=== PATIENT | female | born 1955 | race Caucasian/White ===

== ENCOUNTER 2016-07-26 20:50 | Emergency (ER) | payer OTHER ==
--- NOTE | 2016-07-26 21:33 | ED ---
General Adult HPI - General Chief complaint: Back Pain/Injury Stated complaint: hip/leg pain Time Seen by Provider: 07/26/16 21:18 Source: patient, RN notes reviewed Mode of arrival: ambulatory Limitations: no limitations - History of Present Illness Initial comments: This is a 61-year-old female presents with pain that radiates down the right leg that started 3 days ago. Patient states she's had chronic back pain from an accident approximately 15 years ago. Patient states she has never had pain down the right leg. Patient also complains of some paresthesias to the right foot but denies any numbness or weakness. Patient denies any injury or fall. Patient denies any change in bowel or bladder function or loss of sensation to the saddle area. Patient is able to ambulate. Patient has been taking Tylenol for the pain. Patient denies any recent fever, chills, shortness breath, chest pain, abdominal pain, nausea/vomiting/diarrhea, hematuria, headache, or visual changes, or any other complaints. - Related Data Home Medications Medication Instructions Recorded Confirmed Glimepiride [Amaryl] 1 tab PO DAILY 07/26/16 07/26/16 Lisinopril [Zestril] 1 tab PO DAILY 07/26/16 07/26/16 Lovastatin [Mevacor] 40 mg PO HS 07/26/16 07/26/16 metFORMIN HCL 1 tab PO DAILY 07/26/16 07/26/16 Allergies Allergy/AdvReac Type Severity Reaction Status Date / Time aspirin Allergy Nausea & Verified 07/26/16 20:58 Vomiting Review of Systems ROS Statement: Those systems with pertinent positive or pertinent negative responses have been documented in the HPI. ROS Other: All systems not noted in ROS Statement are negative. Past Medical History Past Medical History: COPD, Diabetes Mellitus, Hypertension History of Any Multi-Drug Resistant Organisms: None Reported Past Surgical History: Orthopedic Surgery, Tubal Ligation Additional Past Surgical History / Comment(s): hemorrhoidectomy Past Psychological History: No Psychological Hx Reported Smoking Status: Current every day smoker Past Alcohol Use History: None Reported Past Drug Use History: None Reported General Exam - General Exam Comments Initial Comments: General: The patient is awake and alert, in no distress, and does not appear acutely ill. Neck: The neck is supple, there is no tenderness or JVD. Cardiovascular: There is a regular rate and rhythm. No murmur, rub or gallop is appreciated. Respiratory: Lungs are clear to auscultation, respirations are non-labored, breath sounds are equal. No wheezes, stridor, rales, or rhonchi. Musculoskeletal: There is mild tenderness to palpation of the lumbar spine which patient states is chronic. Patient has tenderness to the right posterior hip in the area of the sciatic nerve. Patient has full range of motion and strength 5/5 and sensation is intact. Posterior tibial and dorsalis pedis pulses are 2+ bilaterally. Capillary refill is normal at less than 2 seconds. Neurological: A&O x 3. CN II-XII intact, There are no obvious motor or sensory deficits. Coordination appears grossly intact. Speech is normal. Skin: Skin is warm and dry and no rashes or lesions are noted. Psychiatric: Normal mood and affect. Limitations: no limitations Course Vital Signs 07/26/16 07/26/16 07/26/16 20:55 21:57 22:20 Temperature 97.9 F Pulse Rate 90 83 83 Respiratory 20 18 20 Rate Blood Pressure 181/101 204/83 178/77 O2 Sat by Pulse 96 99 99 Oximetry 07/26/16 22:38 Temperature 98.0 F Pulse Rate 77 Respiratory 18 Rate Blood Pressure 174/77 O2 Sat by Pulse 99 Oximetry Medical Decision Making - Medical Decision Making This is a 61-year-old female presents with chronic lower back pain and radicular pain down the right leg. On physical exam patient is ambulatory in the EC. There is mild tenderness to palpation of the lumbar spine which patient states is chronic. Patient has tenderness to the right posterior hip in the area of the sciatic nerve. Patient has full range of motion and strength 5/5 and sensation is intact. Posterior tibial and dorsalis pedis pulses are 2+ bilaterally. Capillary refill is normal at less than 2 seconds. An x-ray of the lumbar spine was done and reviewed showing: No acute process. Report by Dr. Ortiz. I discussed sciatica with patient. Patient was given a shot of Dilaudid in the EC today along with Zofran. Patient was feeling much better after her pain medication. Patient was given Catapres in the EC due to elevated blood pressure. Patient states she takes blood pressure medication at home but knows that it is usually elevated. Patient is asymptomatic at this time. Blood pressure was rechecked and was 174/77. I discussed that patient is to follow-up with her primary care provider regarding her blood pressure. I discussed warm heating pads and continuation of OTC Tylenol for her sciatica symptoms. I discussed return parameters. Discussed with patient to follow-up with her primary care physician in one to 2 days or return to the EC for any worsening symptoms or for any further concerns. Patient was receptive to this plan. Patient will be discharged home. Patient had a ride home from her daughter-in- law. I discussed this case physician Dr. Veloz who agrees stated above. Disposition Clinical Impression: Sciatica Disposition: HOME SELF-CARE Condition: Good Instructions: Sciatica (ED) Additional Instructions: Please continue Tylenol as needed for pain. Please follow-up with family doctor tomorrow for your blood pressure. Please follow-up with family doctor in the next 1-2 days or return to the EC for any worsening symptoms or for any further concerns. Referrals: Benji Elizabeth MD [Primary Care Provider] - 1-2 days Time of Disposition: 22:28
[2016-07-26] MEDS ORDERED: HYDROmorphone 1 MG/ML 1 ML SYRINGE IVP STA (21:46)
[2016-07-26] MEDS ORDERED: cloNIDine HCL 0.2 MG TAB PO STA (21:47)
[2016-07-26] MEDS ORDERED: ONDANSETRON ODT 4 MG TAB PO STA (21:48)
--- NOTE | 2016-07-26 21:58 | XR ---
EXAMINATION TYPE: XR lumbar spine 2 or 3V DATE OF EXAM: 07/26/2016 9:36 PM COMPARISON: NONE HISTORY: Right leg numbness chronic back pain TECHNIQUE: 3 views FINDINGS: Negative for fracture or malalignment. There are multilevel advanced degenerative facet and disc changes noted. IMPRESSION: No acute process.
[2016-07-26 22:39] VITALS: BP 174/77; PULSE 77; RESP 18; TEMP 98
== END 2016-07-26 22:39 | disposition home or self-care (01) ==
LOC: EC 20:50
DX: M54.30 Sciatica, unspecified side (principal); E11.9 Type 2 diabetes mellitus without complications; I10 Essential (primary) hypertension; F17.200 Nicotine dependence, unspecified, uncomplicated; Z79.84 Long term (current) use of oral hypoglycemic drugs; Z79.899 Other long term (current) drug therapy; Z88.6 Allergy status to analgesic agent
CPT/HCPCS: 72100; 99283; 96374; J1170

== ENCOUNTER → 2016-09-25 | Outpatient (CLI) | payer OTHER ==
[2016-09-21 15:28] VITALS: BMI 31.6
[2016-09-25 14:08] VITALS: BP 146/79; PULSE 97; RESP 16; TEMP 97.8
--- NOTE | 2016-09-25 15:03 | P.CONS ---
History of Present Illness - Reason for Consult Consult date: 09/25/16 - History of Present Illness This is the initial consultation visit for this 61 years old female, who 2 years history of severe low back pain and neck pain, pain started after she tripped and fell on her back, and she continued to have severe low back pain, and she described her low back pain as aching, continuous pain, increased with any movement or activity, and also patient having severe neck pain, she has no motor or sensory deficit in the upper or lower extremities, she had no fever or night sweats, and no change in the morning bowel movement or urination, loss of the pain localized in the low back area and she describes the intensity of the pain is 7/10 increased with any activity Past Medical History Past Medical History: Asthma, COPD, Diabetes Mellitus, Hypertension Additional Past Medical History / Comment(s): lower back, bubba hips, neck and headaches History of Any Multi-Drug Resistant Organisms: None Reported Past Surgical History: Orthopedic Surgery, Tonsillectomy, Tubal Ligation Additional Past Surgical History / Comment(s): hemorrhoidectomy. Missing left knee cap secondary to accident in the Past Anesthesia/Blood Transfusion Reactions: No Reported Reaction Past Psychological History: No Psychological Hx Reported Smoking Status: Current every day smoker Past Alcohol Use History: None Reported Additional Past Alcohol Use History / Comment(s): has smoked since age 11, 1+ ppd Past Drug Use History: None Reported - Past Family History Mother Family Medical History: Cancer Additional Family Medical History / Comment(s): colon cancer Father Family Medical History: Cancer Additional Family Medical History / Comment(s): esophageal cancer Sister(s) Family Medical History: Cancer Additional Family Medical History / Comment(s): brain cancer Brother(s) Family Medical History: Diabetes Mellitus Additional Family Medical History / Comment(s): from complications of diabetes Medications and Allergies Home Medications Medication Instructions Recorded Confirmed Type Glimepiride [Amaryl] 1 mg PO AC-LUNCH 07/26/16 09/25/16 History Lisinopril [Zestril] 1 tab PO DAILY 07/26/16 09/25/16 History Lovastatin [Mevacor] 40 mg PO HS 07/26/16 09/25/16 History metFORMIN HCL 1 tab PO BID 07/26/16 09/25/16 History Acetaminophen Tab [Tylenol Tab] 1,000 mg PO Q6H PRN 09/21/16 09/25/16 History Albuterol Inhaler [Ventolin Hfa 1 - 2 puff INHALATION Q6HR PRN 09/21/16 History Inhaler] Albuterol Nebulized [Ventolin 2.5 mg INHALATION BID PRN 09/21/16 09/25/16 History Nebulized] NIFEdipine [NIFEdipine ER] 30 mg PO DAILY 09/21/16 09/25/16 History Cholecalciferol [Vitamin D3] 1,000 unit PO DAILY 09/25/16 09/25/16 History Loratadine [Claritin] 10 mg PO DIRECTED PRN 09/25/16 09/25/16 History Allergies Allergy/AdvReac Type Severity Reaction Status Date / Time aspirin Allergy Nausea & Verified 09/25/16 13:48 Vomiting Physical Exam Vitals: Vital Signs Temp Pulse Resp BP Pulse Ox 09/25/16 13:52 97.8 F 97 16 146/79 100 Intake and Output 09/24/16 09/25/16 09/25/16 22:59 06:59 14:59 Other: Weight 83.915 kg Patient Weight 09/26/16 06:59 Weight 83.915 kg Social history : smoker , NO ETOH , NO Illegal drugs use Review of Systems : 1- Constitutional : no chills , no fever , no night sweats , 2- Ears : no ear discharge , no change in hearing 3-Nose, Mouth ,Throat ; no bleeding gums, no sore throat , no epistaxis , 4-Cardiovascular : Denies chest pain, , no orthopnea , no palpitation 5-Respiratory : Denies cough , no dyspnea , no hemoptysis 6-Gastrointestinal :, no change in bowel habits , no coffee- ground emesis . 7-Genitourinary : No hematuria , no discharge , no incontinence, 8-Musculoskeletal : No gait dysfunction , report low back pain , 9- Neurological : no ataxia , no tremor , no sezure , 10-Psychatric , no suicidal ideation no hallucination 11- Endocrine : no cold intolerence , no polyuria , no polydypsia , 12-Hematologic : no easy bleeding , no easy brusing , 13-Allergic / immunology : no angioedema , no wheezing ,no allergic rhinitis 14-Integumentary : no brttle nails , no change hair / nails , no foot/leg ulcers . Physical Examinations : 1-Constitutional : Cooperative , not in acute distress . 2-HEENT : nech ; supple , no Lymphadenopathy , no Thyromegaly , :eyes , no icterus, no photophobia . ENT : , normal oropharynx , no Thrush 3- Respiratory : Chest clear to auscultations Bilaterally , no wheezing . 4- Cardiovascular : regular rate and rhythem , S1 , S2 , no S3 , no S4. 5- Gastrointestinal: abdomen soft no tenderness , no organomegally . 6- Genitourinary : Defferred . 7-Integumentary : No cellulitis , no ulcers , normal skin turgor , no cyanotic . 8- neurologic : Cranial nerve II to XII intact , no focal neurological deffecit 9-psychatric : alert , oriented X 3 , appropriate affect , intact judgment and insight . 10-Lymphatic : no Lymphadenopathy. 11- musculoskeltal: normal gait exams of the cervical spine = motor stregnth in the deltoid and biceps, normal right side , normal Left side motor stregnth biceps and the wrist extensors normal right side ,normal left side . motor stregnth in the triceps muscle . normal Right side , normal Left side deep tendon reflexes normal at the biceps , normal at Brachioradialis , normal at triceps. positive cervical facet loading test . exams of the Lumber spine = moter stegnth lower extremities , thigh and legs 5/5 Right side , 5/5 Left side deep tendon reflexes : normal Knee Jerk , normal ankle Jerk positive lumber facet Loading Test Range of motion of the lumbar spine Flexions 60 , extension 10 strait leg raising test negative bilaterally Fabere test negative bilaterally mild tenderness over the Sacroiliac joint on the R ight side Results Comments: MRI of the lumbar spine done at [facility] on 05/01/2016= L5-S1 annular tear, L4 5 disc bulging with facet degeneration L3 4 facet degeneration L2-3 disc bulging Assessment and Plan Plan: Assessment and plan = - Chronic low back pain secondary to lumbar herniated disc disease , lumbar spondylosis with facet arthropathy without myelopathy , but clinically most of the pain is coming from the facetogenic component for this reason , we will target Facet joint or standard -Chronic neck pain mostly secondary , cervical spondylosis with cervical facet arthropathy without myelopathy . - diagnoses, prognosis, and treatment options including but not limited to physical therapy, surgical interventions, interventional therapies and medication management including narcotics and adjuvant medication were discussed with the patient and all questions answered to the patient's satisfaction. -procedure= patient will be scheduled for diagnostic medial branch block lumbar area, L3/L4 5/L5-S1 will do it twice and if she has more than 50% improvement in her low back pain then we will proceed with radiofrequency ablation of the medial branch, the future we can order an MRI of the cervical spine and with consistent blink treatment as indicated Time with Patient: Greater than 30
== END | disposition home or self-care (01) ==
LOC: PNWHC3 13:38
PROVIDERS: ATTEND Specialist
DX: M51.36 Other intervertebral disc degeneration, lumbar region (principal); M47.816 Spondylosis without myelopathy or radiculopathy, lumbar region; G89.29 Other chronic pain
CPT/HCPCS: 99211

== ENCOUNTER 2016-10-03 06:16 | Day surgery (SDC) | payer OTHER ==
[2016-10-02 13:35] VITALS: BMI 31.6
[2016-10-03 07:19] VITALS: RESP 16; TEMP 97.1
[2016-10-03] MEDS ORDERED: LIDOCAINE 1% 20 ML VIAL (10MG/ML) FOR IV START INTRADERMA ONE (07:22)
[2016-10-03] MEDS ORDERED: LACTATED RINGERS 1,000 ML IV ONE ×2 (07:22→08:15)
[2016-10-03 07:26] LABS: Glucose,Whole Blood 155 mg/dL (75-99)
[2016-10-03] MEDS ORDERED: MIDAZOLAM 2 MG/2 ML VIAL ONE (07:29)
[2016-10-03] MEDS ORDERED: TRIAMCINOLONE ACETONIDE 40 MG/ML 1 ML VIAL ONE (07:29)
[2016-10-03] MEDS ORDERED: BUPIVACAINE (PF) 0.5% 30 ML VIAL ONE (07:29)
[2016-10-03] MEDS ORDERED: fentaNYL (PF) 50 MCG/ML 2 ML AMP ONE (07:29)
--- NOTE | 2016-10-03 08:18 | P.PCN ---
Date of Procedure: 10/03/16 Surgeon: Gus Pang Pathology: none sent Condition: stable Disposition: PACU Description of Procedure: PREOPERATIVE DIAGNOSIS: L3-L4, L4-L5, and L5-S1 spondylosis without myelopathy and facet arthropathy. POSTOPERATIVE DIAGNOSIS: L3-L4, L4-L5, and L5-S1 spondylosis without myelopathy and facet arthropathy. PROCEDURE DESCRIPTION: Patient presents for L3, L4 and L5 diagnostic medial branch blocks under fluoroscopic guidance. The procedure is performed using fluoroscopic guidance during needle placement to assure proper position and maximize safety. ANESTHESIA: Local with 1% lidocaine; conscious sedation with Versed only EBL: Minimal PROCEDURE INDICATION: Patient with lumbar facet arthropathy signs and symptoms, here for diagnostic medial branch block. Pt does not take any blood thinning medications. PROCEDURE DESCRIPTION: The patient was seen and identified in the preoperative area. Risks, benefits, complications, and alternatives were discussed with the patient (including but not limited to incomplete pain relief, bleeding, infection, nerve damage, and allergies to medications), the patient agreed to proceed with the procedure and signed the consent after all questions were answered. Patient was taken to the OR and time out was completed to verify proper patient, position, laterality of pain, and allergies. Pt was placed in the prone position and a pillow was placed under the abdomen to reduce lumbar lordosis. The lumbosacral area was prepped and draped in the usual sterile fashion. Using oblique fluoroscopy, the eye of the "Lavelle dog" of right L4 vertebral body, which corresponds to the path of the medial branch originating from the level above, which is L3 in this case, was identified. Subsequently, a 22-gauge 3.5-inch spinal needle was inserted under fluoroscopic guidance toward the eye of the "Lavelle dog" of the right L4 vertebral body, corresponding to the junction of the superior articular process and the transverse process of the pedicle of the same level. After needle tip confirmation on lateral view and after negative aspiration for CSF and blood and without paresthesias, 1 mL of a 6 ml solution of 0.5% preservative-free bupivacaine and 40 mg Kenalog was injected. Subsequently the needle was withdrawn intact and the same procedure was repeated for the right L4, right L5, left L3, left L4, and left L5 medial branches which together with right L3 medial branch correspond to the sensory innervation of the bilateral L3-L4, L4-L5, and L5-S1 facet joints. Needle was withdrawn intact after each injection. At the end of the procedure, the skin was cleansed and bandages were applied. COMPLICATIONS: None. DISPOSITION/PLAN: The patient taken to the recovery area after the procedure in a stable condition for observation. Patient was reexamined prior to discharge and there were no issues. Patient was discharged home, accompanied by an adult, after meeting discharged criteria. Discharge instructions were give to the patient by the staff. Patient was specifically instructed not to drive today and to rest for the rest of the day. Patient will have repeat lumbar MBB L3-S1 bilateral in 4-6 weeks.
[2016-10-03 08:21] VITALS: BP 154/76; PULSE 87
[2016-10-03 08:25] LABS: Glucose,Whole Blood 141 mg/dL (75-99)
[2016-10-03] MEDS ORDERED: IV FLUID CONTINUATION 1,000 ML IV ONE (08:30)
--- NOTE | 2016-10-03 08:31 | FL ---
EXAMINATION TYPE: FL guided pain mgmt statistic DATE OF EXAM: 10/03/2016 7:53 AM FLUOROSCOPY Fluoroscopy time of 13 seconds was used during bilateral lumbar facet injections. 3 image/s document /s the procedure.
== END 2016-10-03 08:31 | disposition home or self-care (01) ==
LOC: ORPAIN 06:16
PROVIDERS: ATTEND Anesthesiology
DX: M47.816 Spondylosis without myelopathy or radiculopathy, lumbar region (principal); M47.817 Spondylosis without myelopathy or radiculopathy, lumbosacral region; J45.909 Unspecified asthma, uncomplicated; J44.9 Chronic obstructive pulmonary disease, unspecified; E11.9 Type 2 diabetes mellitus without complications; Z79.84 Long term (current) use of oral hypoglycemic drugs; I10 Essential (primary) hypertension; F17.200 Nicotine dependence, unspecified, uncomplicated; Z79.899 Other long term (current) drug therapy; Z88.6 Allergy status to analgesic agent
CPT/HCPCS: 64493; 64494; 64495; 99152; J2250; J3301; J3010

== ENCOUNTER 2016-10-18 07:12 | Day surgery (SDC) | payer OTHER ==
[2016-10-13 11:38] VITALS: BMI 31.6
[2016-10-18 07:55] VITALS: RESP 18; TEMP 97.9
[2016-10-18 08:11] LABS: Glucose,Whole Blood 150 mg/dL (75-99)
[2016-10-18] MEDS: LACTATED RINGERS 1,000 ML IV SCH ×2 (08:11→08:32)
[2016-10-18] MEDS ORDERED: MIDAZOLAM 2 MG/2 ML VIAL ONE (08:32)
[2016-10-18] MEDS ORDERED: fentaNYL (PF) 50 MCG/ML 2 ML AMP ONE (08:32)
[2016-10-18] MEDS ORDERED: BUPIVACAINE (PF) 0.5% 30 ML VIAL ONE (08:32)
[2016-10-18] MEDS ORDERED: TRIAMCINOLONE ACETONIDE 40 MG/ML 1 ML VIAL ONE (08:32)
--- NOTE | 2016-10-18 08:59 | P.PCN ---
Date of Procedure: 10/18/16 Preoperative Diagnosis: Postoperative Diagnosis: Procedure(s) Performed: PREOPERATIVE DIAGNOSIS : 1- Lumbar spondylosis with Facet Arthropathy without myelopathy . 2- Lumber herniated disc disease POSTOPERATIVE DIAGNOSIS: 1- Lumbar spondylosis with Facet Arthropathy without myelopathy . 2- Lumber herniated disc disease PROCEDURE: Diagnostic bilateral L3 -4 , L4 -5 , and L5-S1 medial branch block under fluoroscopy#2nd ANESTHESIA: Local with 1% lidocaine 6 ml ; IV sedation with Versed 2 mg and Fentanyl 100 mcg. EBL: Minimal COMPLICATION: None. IV FLUIDS: 100 mL of normal saline. PROCEDURE INDICATION: Chronic low back pain secondary to Facet arthropathy unresponsive to conservative treatment. PROCEDURE DESCRIPTION: the patient was seen and identified in the preop holding area , risks and benefits and possible complications of the procedure and alternative were discussed with the patient, and the patient agreed to proceed with the procedure and signed the consent IV was started and vital signs monitored during the procedure and fluoroscopy was used to maximize the benefit and accuracy of the needle placement, and sedation was given to decrease patient anxiety, patient was taken to the procedure room and placed in prone position vital signs monitored in the back prepped with chlorhexidine X3 then under strict sterile technique using a right oblique fluoroscopy ,the junction of the transverse process and the superior articulating process of the right L3- 4 , L4- 5, and L5-S1 vertebra which corresponding to the fluoroscopy image of the eye of the Lavelle dog on the block side for the medial branches and subsequently , after local infiltration of skin and subcu tissuies with lidocaine 1% one mL at each level ,then 22- gauge Quincke-type needles , 3 needle was used , each one of them placed at the junction of the base of the transverse process and the superior articular process at the appropriate level, and the needle was advanced until the periosteum contacted, needle placement confirmed with AP oblique and lateral view and after appropriate needle placement confirmed, and after negative aspiration for heme and CSF and there was no paresthesia 1-1/2 mL of Marcaine 0.5% mixed with 20 mg Kenalog , then half mL injected at each level after negative aspiration the needle subsequently removed and the same procedure repeated for the left side at left side at L3-4, L4- 5 and L5-S1 levels. At the end of the procedure and the needles removed and a bandage applied after the skin was cleaned the cleaning solution patient taken to recovery room in stable condition and monitors in the recovery room for 20-30 minutes and discharged home in stable condition after discharge criteria met and patient will follow up with the pain clinic in 2-4 weeks Implants: Indications for Procedure: Operative Findings: Description of Procedure:
[2016-10-18] MEDS ORDERED: IV FLUID CONTINUATION 700 ML IV ONE (09:07)
--- NOTE | 2016-10-18 09:08 | FL ---
FLUOROSCOPY 9 seconds of fluoroscopy time were utilized during lumbar facet block. 4 images document the procedur e.
[2016-10-18 09:10] VITALS: BP 127/69; PULSE 84
== END 2016-10-18 10:44 | disposition home or self-care (01) ==
LOC: ORPAIN 07:12
PROVIDERS: ATTEND Specialist
DX: G89.29 Other chronic pain (principal); M54.5 Low back pain; M47.816 Spondylosis without myelopathy or radiculopathy, lumbar region; M46.96 Unspecified inflammatory spondylopathy, lumbar region; M51.26 Other intervertebral disc displacement, lumbar region; Z88.6 Allergy status to analgesic agent
CPT/HCPCS: 64493; 64494; 64495; 99152; J2250; J3301; J3010

== ENCOUNTER 2016-11-30 08:12 | Day surgery (SDC) | payer OTHER ==
[2016-11-30 07:14] VITALS: RESP 16; TEMP 97.8
--- NOTE | 2016-11-30 07:59 | P.PCN ---
Date of Procedure: 11/30/16 Preoperative Diagnosis: Postoperative Diagnosis: Procedure(s) Performed: PREOPERATIVE DIAGNOSIS: 1-Lumbar Spondylosis with Facet Arthropathy without myelopathy. POSTOPERATIVE DIAGNOSIS: 1- Lumbar Spondylosis with Facet Arthropathy without myelopathy. PROCEDURES : Right Radiofrequency thermocoagulation, L3-L4, L4-L5, and L5-S1 medial branch, with fluoroscopic guidance ANESTHESIA: IV sedation with versed 2 mg and fentaneyl 100 mcg and local infiltration with lidocaine 1% 6 ml EBL: Minimal PROCEDURE INDICATION: The patient with low back pain secondary to lumbar facet arthropathy who had more than 50% relief of her pain with previous diagnostic lumbar medial branch block with bupivacaine. PROCEDURE DESCRIPTION / TECHNIQUE: The patient was seen and identified in the preoperative area. Risks, benefits, complications, including but not limited to risk of infection ,bleeding , allergic reactions to the medications and no complete pain releife , and alternatives were discussed with the patient, the patient agreed to proceed with the procedure and signed the consent. IV was started. Vital signs remained stable throughout the procedure. Patient was taken to the OR and time out was completed. The patient was placed in the prone position on the procedure table. The lumber area was prepped and draped in the usual sterile fashion. . Vital signs were closely monitored during the procedure .IV sedation was used during the procedure to decrease patients anxiety. Using AP and then oblique fluoroscopy, the ``eye of the Lavelle dog corresponding to the connection between the superior and transverse articular processes of right L3, L4, and L5 were identified, marked, and localized with 1 % lidocaine. Subsequently, a [id number] radiofrequency cannula with a 10- mm active tip was advanced guided by fluoroscopy to each of the ``eyes of the Lavelle dog at right L3, L4, and L5. Each site then underwent sensory testing at 50 Hz and 0 to 1 volt and motor testing at 2.5 Hz and 0 to 3 volt with local stimulation, but no radicular symptoms down the legs. Thereafter the right L3-4, L4-5, and L5-S1 sites underwent radiofrequency thermocoagulation at 80 degrees celsius for 90 seconds after injecting 0.5 ml of PF lidocaine 1%. then After the thermocoagulation done , 1 ml of the block solution containing dexamethasone 10 mg and 3 ml of marain 0.5% was injected at the right L3-4 , L4-5 , and L5-S1, levels after negative aspiration of CSF and blood and with no paresthesias. Cannulas were retracted while injecting lidocaine 1% until the needle is out. At the end of the procedure, the skin was cleansed and bandages were applied. COMPLICATIONS: No acute complications. DISPOSITION / PLANS: The patient was placed in a supine position and transferred to the recovery area in a stable condition for observation and was discharged from the recovery room after meeting discharge criteria. Home discharge instructions given to the patient by the staff. The patient was reexamined prior to discharge. The patient will schedule a follow up in the clinic in 2-4 weeks. Implants: Indications for Procedure: Operative Findings: Description of Procedure:
--- NOTE | 2016-11-30 08:08 | FL ---
Fluoroscopy History: Rt Lumbar Rad Freq 10sec fluoro time, 3 images scanned.
[2016-11-30 08:09] LABS: Glucose,Whole Blood 171 mg/dL (75-99)
[~2016-11-30 08:12] MED LIST: BUPIVACAINE (PF) 0.5% 30 ML VIAL ONE; DEXAMETHASONE SOD PHOS (MDV) 100 MG/10 ML VIAL ONE; IV FLUID CONTINUATION 1,000 ML IV ONE; LACTATED RINGERS 1,000 ML IV ONE; LIDOCAINE 1% 20 ML VIAL (10MG/ML) FOR IV START INTRADERMA ONE; MIDAZOLAM 2 MG/2 ML VIAL ONE; fentaNYL (PF) 50 MCG/ML 2 ML AMP ONE
[2016-11-30 08:21] VITALS: BP 126/65; PULSE 81
== END 2016-11-30 08:44 | disposition home or self-care (01) ==
LOC: ORPAIN 08:12
PROVIDERS: ATTEND Specialist
DX: M47.816 Spondylosis without myelopathy or radiculopathy, lumbar region (principal); M46.96 Unspecified inflammatory spondylopathy, lumbar region; Z88.8 Allergy status to other drugs, medicaments and biological substances; Z91.09 Other allergy status, other than to drugs and biological substances
CPT/HCPCS: 64635; 64636 ×2; 99152; J2250; J3010; J1100

== ENCOUNTER 2016-12-28 07:10 | Day surgery (SDC) | payer OTHER ==
[2016-12-22 15:42] VITALS: BMI 29.9
[2016-12-28] MEDS ORDERED: LIDOCAINE 1% 20 ML VIAL (10MG/ML) FOR IV START INTRADERMA ONE (07:26)
[2016-12-28] MEDS ORDERED: LACTATED RINGERS 1,000 ML IV SCH (07:30)
[2016-12-28 07:37] VITALS: RESP 16; TEMP 95.6
[2016-12-28 07:43] LABS: Glucose,Whole Blood 149 mg/dL (75-99)
[2016-12-28] MEDS ORDERED: IV FLUID CONTINUATION 1,000 ML IV ONE (08:46)
[2016-12-28 09:02] VITALS: BP 139/61; PULSE 79
--- NOTE | 2016-12-28 09:19 | FL ---
EXAMINATION TYPE: FL guided pain mgmt statistic DATE OF EXAM: 12/28/2016 CLINICAL HISTORY: Low back pain. TECHNIQUE: Fluoroscopy. COMPARISON: None. FINDINGS: Fluoroscopic guidance was provided during pain relief procedure performed by Dr. Pang . A total of 10 seconds of fluoroscopic time was utilized during the procedure and 4 spot images are ac quired. Images acquired shows needle localization at several levels in the lower lumbar spine. IMPRESSION: As Above.
--- NOTE | 2016-12-28 09:21 | P.PCN ---
Date of Procedure: 12/28/16 Preoperative Diagnosis: Postoperative Diagnosis: Procedure(s) Performed: Implants: Surgeon: Gus Pang Pathology: none sent Condition: stable Disposition: PACU Indications for Procedure: Operative Findings: Description of Procedure: PREOPERATIVE DIAGNOSIS: Lumbar spondylosis without myelopathy and facet arthropathy POSTOPERATIVE DIAGNOSIS: Lumbar spondylosis without myelopathy and facet arthropathy PROCEDURES: Left Radiofrequency thermocoagulation, L3-L4, L4-L5, and L5-S1 medial branch, with fluoroscopic guidance. ANESTHESIA: 1% lidocaine plain; Conscious sedation with versed/fentanyl EBL: Minimal PROCEDURE INDICATION: The patient with low back pain secondary to lumbar arthropathy who had more than 50% relief of pain with previous diagnostic lumbar medial branch block with bupivacaine. Patient presents for left lumbar RFA today with good relief from right side; no use of blood thinners. PROCEDURE DESCRIPTION / TECHNIQUE: The patient was seen and identified in the preoperative area. Risks, benefits, complications, and alternatives were discussed with the patient (including but not limited to incomplete pain relief , bleeding, infection, nerve damage, and allergies to medications), the patient agreed to proceed with the procedure and signed the consent after all questions were answered. Patient was taken to the OR and time out was completed to verify proper patient , position, laterality of pain, and allergies. Pt was placed in the prone position. IV was started. Vital signs remained stable throughout the procedure. A pillow was placed under the patients chest to decrease lordosis. The lumbosacral area was prepped and draped in the usual sterile fashion. Vital signs were closely monitored during the procedure. Conscious sedation was used during the procedure to decrease patients anxiety. Using AP and then oblique fluoroscopy, the eye of the Lavelle dog corresponding to the connection between the superior and transverse articular processes of left L4, L5 and top of the sacrum were identified, marked, and localized with 1% lidocaine. Subsequently, a 18 gauge, 100-mm radiofrequency cannula with a 10-mm active tip was advanced guided by fluoroscopy to each of the eyes of the Lavelle dog at left L3, L4, and L5 medial branches. Each site then underwent sensory testing at 50 Hz and 0 to 1 volt and motor testing at 2 Hz and 0 to 3 volt with local stimulation, but no radicular symptoms down the legs. Thereafter the left L3, L4, and L5 medial branch sites underwent radiofrequency thermocoagulation at 80 degrees Celsius for 90 seconds after injecting 0.5 ml of PF lidocaine 1%. After thermocoagulation, 1 ml of the block solution containing Kenalog 40 mg and 2 mL of preservative-free normal saline was injected at the left L3, L4, and L5 medial branch levels after negative aspiration of CSF and blood and with no paresthesias. Cannulas were retracted while injecting lidocaine 1% until the needles were removed. At the end of the procedure, the skin was cleansed and bandages were applied. COMPLICATIONS: No acute complications. DISPOSITION / PLANS: The patient was placed in a supine position and transferred to the recovery area in a stable condition for observation and was discharged from the recovery room after meeting discharge criteria. Home discharge instructions given to the patient by the staff. The patient was reexamined prior to discharge. The patient will schedule a follow up in the clinic in 2-4 weeks as bilateral RFA completed.
== END 2016-12-28 09:18 | disposition home or self-care (01) ==
LOC: ORPAIN 07:10
PROVIDERS: ATTEND Anesthesiology
DX: M47.816 Spondylosis without myelopathy or radiculopathy, lumbar region (principal); M46.96 Unspecified inflammatory spondylopathy, lumbar region; I10 Essential (primary) hypertension; J44.9 Chronic obstructive pulmonary disease, unspecified; E11.9 Type 2 diabetes mellitus without complications; Z88.6 Allergy status to analgesic agent; Z91.09 Other allergy status, other than to drugs and biological substances
CPT/HCPCS: 64635; 64636 ×2; 99152; J2250; J3301; J3010; 99153

== ENCOUNTER 2017-09-24 08:51 | Observation (INO) | payer OTHER ==
[2017-09-24] MEDS ORDERED: MECLIZINE 12.5 MG TAB PO STA (09:51)
[2017-09-24] MEDS ORDERED: SODIUM CHLORIDE 0.9% 1,000 ML IV STA (09:51)
--- NOTE | 2017-09-24 10:25 | ED ---
Dizziness HPI - General Chief Complaint: Dizziness Stated Complaint: Dizziness Time Seen by Provider: 09/24/17 09:15 Source: patient, RN notes reviewed Mode of arrival: wheelchair Limitations: no limitations - History of Present Illness Initial Comments: This a 62-year-old female presents emergency Department with complaints of dizziness. She states it started yesterday and has progressively gotten worse. She states that the room spins and is worse with movement. She states sitting down currently she has no dizziness. She does complain of intermittent head pain. She states it's in the occipital region. She does complain that she 's had recent URI symptoms including sinus congestion. Patient denies any chest pain, shortness breath, vomiting. She did have some nausea with the dizziness. Patient has some difficulty in being secondary to dizziness. She states she feels unsteady. She has any focal weakness denies back pain, abdominal pain, dysuria or hematuria. She does take medications for diabetes hypertension hyperlipidemia. - Related Data Home Medications Medication Instructions Recorded Confirmed Glimepiride [Amaryl] 1 mg PO AC-LUNCH 07/26/16 09/24/17 Lovastatin [Mevacor] 40 mg PO HS 07/26/16 09/24/17 metFORMIN HCL 1 tab PO BID 07/26/16 09/24/17 Acetaminophen Tab [Tylenol Tab] 500 mg PO Q6H PRN 09/21/16 09/24/17 NIFEdipine [NIFEdipine ER] 30 mg PO DAILY 09/21/16 09/24/17 Cholecalciferol [Vitamin D3] 1,000 unit PO DAILY 09/25/16 09/24/17 Loratadine [Claritin] 10 mg PO DAILY PRN 09/25/16 09/24/17 Lisinopril-Hctz 20-25 mg 1 tab PO DAILY 10/02/16 09/24/17 [Zestoretic 20-25] Allergies Allergy/AdvReac Type Severity Reaction Status Date / Time aspirin Allergy Nausea & Verified 09/24/17 10:37 Vomiting Review of Systems ROS Statement: Those systems with pertinent positive or pertinent negative responses have been documented in the HPI. ROS Other: All systems not noted in ROS Statement are negative. Past Medical History Past Medical History: Asthma, COPD, Diabetes Mellitus, Hyperlipidemia, Hypertension Additional Past Medical History / Comment(s): lower back, neck and headaches History of Any Multi-Drug Resistant Organisms: None Reported Past Surgical History: Orthopedic Surgery, Tonsillectomy, Tubal Ligation Additional Past Surgical History / Comment(s): hemorrhoidectomy. Missing left knee cap secondary to accident in the . PAIN CLINIC PROCEDURES Past Anesthesia/Blood Transfusion Reactions: No Reported Reaction Past Psychological History: No Psychological Hx Reported Smoking Status: Current every day smoker Past Alcohol Use History: None Reported Past Drug Use History: None Reported - Past Family History Mother Family Medical History: Cancer Additional Family Medical History / Comment(s): colon cancer Father Family Medical History: Cancer Additional Family Medical History / Comment(s): esophageal cancer Sister(s) Family Medical History: Cancer Additional Family Medical History / Comment(s): brain, liver Brother(s) Family Medical History: Cancer Additional Family Medical History / Comment(s): bowel General Exam Limitations: no limitations General appearance: alert, in no apparent distress Head exam: Present: atraumatic, normocephalic, normal inspection Eye exam: Present: normal appearance, PERRL, EOMI. Absent: scleral icterus, conjunctival injection, periorbital swelling ENT exam: Present: normal exam, normal oropharynx, mucous membranes moist, TM's normal bilaterally Neck exam: Present: normal inspection, full ROM. Absent: tenderness, meningismus, lymphadenopathy Respiratory exam: Present: normal lung sounds bilaterally. Absent: respiratory distress, wheezes, rales, rhonchi, stridor Cardiovascular Exam: Present: regular rate, normal rhythm, normal heart sounds. Absent: systolic murmur, diastolic murmur, rubs, gallop, clicks GI/Abdominal exam: Present: soft, normal bowel sounds. Absent: distended, tenderness, guarding, rebound, rigid Back exam: Absent: CVA tenderness (R), CVA tenderness (L) Neurological exam: Present: alert, oriented X3, CN II-XII intact, reflexes normal, other (Finger to nose intact bilaterally without over shooting.). Absent: motor sensory deficit Skin exam: Present: warm, dry, intact, normal color. Absent: rash Course Vital Signs 09/24/17 09/24/17 08:52 11:15 Temperature 97 F L 97.5 F L Pulse Rate 96 60 Respiratory 18 18 Rate Blood Pressure 178/83 154/69 O2 Sat by Pulse 97 99 Oximetry - Reevaluation(s) Reevaluation #1: 09/24/17 11:50 Patient was updated on lab results and reevaluated. She continues to have dizziness that she states she is minimally improved states that she still feels unsteady on her feet. Medical Decision Making - Medical Decision Making 62-year-old female presented from for dizziness. Patient is mildly improved here. There is concern as she has risk factors including diabetes, hypertension , hyponatremia and smoking. Patient was admitted to rule out underlying CVA/ TIA. Patient will be given aspirin admitted for neurology exam an MRI - Lab Data Result diagrams: 09/24/17 10:15 09/24/17 10:15 Lab Results 09/24/17 09/24/17 09/24/17 Range/Units 10:15 10:15 10:15 WBC 9.6 (3.8-10.6) k/uL RBC 4.48 (3.80-5.40) m/uL Hgb 12.9 (11.4-16.0) gm/dL Hct 38.4 (34.0-46.0) % MCV 85.8 (80.0-100.0) fL MCH 28.9 (25.0-35.0) pg MCHC 33.7 (31.0-37.0) g/dL RDW 13.8 (11.5-15.5) % Plt Count 223 (150-450) k/uL Neutrophils % 69 % Lymphocytes % 22 % Monocytes % 5 % Eosinophils % 3 % Basophils % 0 % Neutrophils # 6.6 (1.3-7.7) k/uL Lymphocytes # 2.1 (1.0-4.8) k/uL Monocytes # 0.4 (0-1.0) k/uL Eosinophils # 0.3 (0-0.7) k/uL Basophils # 0.0 (0-0.2) k/uL Sodium 141 (137-145) mmol/L Potassium 4.5 (3.5-5.1) mmol/L Chloride 103 (98-107) mmol/L Carbon Dioxide 23 (22-30) mmol/L Anion Gap 15 mmol/L BUN 20 H (7-17) mg/dL Creatinine 0.56 (0.52-1.04) mg/dL Est GFR (CKD-EPI)AfAm >90 (>60 ml/min/1.73 sqM) Est GFR (CKD-EPI)NonAf >90 (>60 ml/min/1.73 sqM) Glucose 138 H (74-99) mg/dL Calcium 9.7 (8.4-10.2) mg/dL Total Bilirubin 0.5 (0.2-1.3) mg/dL AST 23 (14-36) U/L ALT 21 (9-52) U/L Alkaline Phosphatase 70 (38-126) U/L Troponin I <0.012 (0.000-0.034) ng/mL Total Protein 6.9 (6.3-8.2) g/dL Albumin 4.3 (3.5-5.0) g/dL Urine Color Urine Appearance (Clear) Urine pH (5.0-8.0) Ur Specific [place] (1.001-1.035) Urine Protein (Negative) Urine Glucose (UA) (Negative) Urine Ketones (Negative) Urine Blood (Negative) Urine Nitrite (Negative) Urine Bilirubin (Negative) Urine Urobilinogen (<2.0) mg/dL Ur Leukocyte Esterase (Negative) 09/24/17 Range/Units 10:15 WBC (3.8-10.6) k/uL RBC (3.80-5.40) m/uL Hgb (11.4-16.0) gm/dL Hct (34.0-46.0) % MCV (80.0-100.0) fL MCH (25.0-35.0) pg MCHC (31.0-37.0) g/dL RDW (11.5-15.5) % Plt Count (150-450) k/uL Neutrophils % % Lymphocytes % % Monocytes % % Eosinophils % % Basophils % % Neutrophils # (1.3-7.7) k/uL Lymphocytes # (1.0-4.8) k/uL Monocytes # (0-1.0) k/uL Eosinophils # (0-0.7) k/uL Basophils # (0-0.2) k/uL Sodium (137-145) mmol/L Potassium (3.5-5.1) mmol/L Chloride (98-107) mmol/L Carbon Dioxide (22-30) mmol/L Anion Gap mmol/L BUN (7-17) mg/dL Creatinine (0.52-1.04) mg/dL Est GFR (CKD-EPI)AfAm (>60 ml/min/1.73 sqM) Est GFR (CKD-EPI)NonAf (>60 ml/min/1.73 sqM) Glucose (74-99) mg/dL Calcium (8.4-10.2) mg/dL Total Bilirubin (0.2-1.3) mg/dL AST (14-36) U/L ALT (9-52) U/L Alkaline Phosphatase (38-126) U/L Troponin I (0.000-0.034) ng/mL Total Protein (6.3-8.2) g/dL Albumin (3.5-5.0) g/dL Urine Color Light Yellow Urine Appearance Clear (Clear) Urine pH 5.0 (5.0-8.0) Ur Specific [place] 1.008 (1.001-1.035) Urine Protein Negative (Negative) Urine Glucose (UA) Negative (Negative) Urine Ketones Negative (Negative) Urine Blood Negative (Negative) Urine Nitrite Negative (Negative) Urine Bilirubin Negative (Negative) Urine Urobilinogen <2.0 (<2.0) mg/dL Ur Leukocyte Esterase Negative (Negative) Disposition Clinical Impression: Dizziness, TIA (transient ischemic attack), Hypertension, Diabetes Disposition: ADMITTED IP TO THIS [facility] Condition: Stable Referrals: Lisa Reilly MD [Primary Care Provider] - 1-2 days
[2017-09-24 10:39] LABS: Basophils % (A) 0 %; Eosinophils # (A) 0.3 k/uL (0-0.7); Eosinophils % (A) 3 %; HCT 38.4 % (34.0-46.0); HGB 12.9 gm/dL (11.4-16.0); Lymphocytes # (A) 2.1 k/uL (1.0-4.8); Lymphocytes % (A) 22 %; MCH 28.9 pg (25.0-35.0); MCHC 33.7 g/dL (31.0-37.0); MCV 85.8 fL (80.0-100.0); Mean Platelet Volume 8.2; Monocytes # (A) 0.4 k/uL (0-1.0); Monocytes % (A) 5 %; Neutrophils # (A) 6.6 k/uL (1.3-7.7); Neutrophils % (A) 69 %; Platelet Count 223 k/uL (150-450); RBC 4.48 m/uL (3.80-5.40); RDW 13.8 % (11.5-15.5); WBC 9.6 k/uL (3.8-10.6)
[2017-09-24 10:40] LABS: Appearance,Urine Clear (Clear); Bilirubin,Urine Negative (Negative); Blood,Urine Negative (Negative); Color,Urine Light Yellow; Glucose,Urine (UA) Negative (Negative); Ketones,Urine Negative (Negative); Leukocyte Esterase,Urine Negative (Negative); Nitrite,Urine Negative (Negative); Protein,Urine Negative (Negative); Specific Gravity,Urine 1.008 (1.001-1.035); Urobilinogen,Urine <2.0 mg/dL (<2.0)
[2017-09-24 10:45] LABS: ALT 21 U/L (9-52); AST 23 U/L (14-36); Albumin 4.3 g/dL (3.5-5.0); Alkaline Phosphatase 70 U/L (38-126); Anion Gap 15 mmol/L; Blood Urea Nitrogen 20 mg/dL (7-17); Calcium 9.7 mg/dL (8.4-10.2); Carbon Dioxide 23 mmol/L (22-30); Chloride 103 mmol/L (98-107); Glucose 138 mg/dL (74-99); Potassium 4.5 mmol/L (3.5-5.1); Sodium 141 mmol/L (137-145); Total Bilirubin 0.5 mg/dL (0.2-1.3); Total Protein 6.9 g/dL (6.3-8.2)
--- NOTE | 2017-09-24 11:05 | CT ---
EXAMINATION TYPE: CT brain wo con DATE OF EXAM: 09/24/2017 COMPARISON: NONE HISTORY: Dizziness CT DLP: 1054.2 mGycm Automated exposure control for dose reduction was used. FINDINGS: Ventricular system is midline. Calvarium intact. Mild generalized degenerative change. Faint periventricular low attenuation is nonspecific but common ly seen with remote microvascular ischemia. Low attenuation involving the rahul is nonspecific may be artifactual. Area of remote ischemia not exc luded. Correlate clinically. No acute hemorrhage or mass effect. Changes of chronic sinusitis noted. Hyperostosis of the frontal bone noted. IMPRESSION: DEGENERATIVE AND NONSPECIFIC WHITE MATTER CHANGES. NO ACUTE HEMORRHAGE. IF THERE IS CONCERN FOR ACUTE ISCHEMIA CORRELATE WITH MRI CLINICALLY WARRANTED.
[2017-09-24] MEDS ORDERED: ASPIRIN 325 MG TAB PO STA (11:56)
[2017-09-24] MEDS ORDERED: LORATADINE 10 MG TAB PO PRN (13:30)
[2017-09-24] MEDS ORDERED: ACETAMINOPHEN TAB 500 MG TAB PO PRN (13:30)
--- NOTE | 2017-09-24 14:27 | US ---
EXAMINATION TYPE: US carotid duplex BILAT DATE OF EXAM: 09/24/2017 COMPARISON: NONE CLINICAL HISTORY: dizziness. EXAM MEASUREMENTS: RIGHT: Peak Systolic Velocity (PSV) cm/sec ----- Right CCA: 79.8 ----- Right ICA: 87.1 ----- Right ECA: 157.8 ICA/CCA ratio: 1.1 RIGHT: End Diastole cm/sec ----- Right CCA: 5.7 ----- Right ICA: 21.7 ----- Right ECA: 9.1 LEFT: Peak Systolic Velocity (PSV) cm/sec ----- Left CCA: 60.7 ----- Left ICA: 176.3 ----- Left ECA: 171.7 ICA/CCA ratio: 2.9 LEFT: End Diastole cm/sec ----- Left CCA: 8.9 ----- Left ICA: 30.0 ----- Left ECA: 11.4 VERTEBRALS (direction of flow): Right Vertebral: Antegrade Left Vertebral: Antegrade Rhythm: Some arrhythmia noted in images 20 and 23 Moderate amount of plaque visualized bilateral bulbs/proximal ICAs. Elevated velocities visualized in the right ECA, left proximal and mid ICA and left ECA IMPRESSION: 1. Left internal and external carotid artery stenosis of 50-69%. 2. Moderate degree of grayscale atheromatous plaquing within the left carotid bulb with elevated peak systolic velocity of the right external carotid artery corresponding to 50-69% stenosis. 2. Intermittent cardiac arrhythmia. Correlate with EKG.
--- NOTE | 2017-09-24 15:01 | P.HPIM ---
History of Present Illness H&P Date: 09/24/17 Chief Complaint: Dizziness This is a 62-year-old female patient of Dr. Reilly with past medical history of diabetes mellitus type 2, hypertension, hyperlipidemia, vitamin D deficiency, chronic low back and neck pain, headaches, tobacco use and dependence. Patient states that starting yesterday evening when she went to bed she had a dizzy spell and she had another one this morning and this is progressively worsened. This room is spinning and is worse with movement. She had a recent sinus infection 3 weeks ago and was treated with an antibiotic for 10 days but she does not remember the name of the antibiotic. She was feeling better after this. She does complain of sinus drainage. She complains of chest pressure but no actual pain. She has a headache to the posterior bilaterally and across her forehead. She does have phlegm production but denies any blood. No heartburn. She does complain of ringing in her ears for the past 2-3 days. She came into the [facility] emergency center for evaluation. Vital signs were stable, she was afebrile. White count 9.6, BUN 20 creatinine 0.56, blood sugar 138. She does state that her hemoglobin A1c last checked was 6.3. Electrolytes and liver function tests were within normal limits. Troponin was negative. Urinalysis was clear. CAT scan of the brain revealed degenerative and nonspecific white matter changes. No acute hemorrhage. Carotid duplex revealed a left internal and external carotid artery stenosis of 50-69%. Patient is to be admitted as observation and consult with neurology. MRI of the brain and echocardiogram of also been ordered. Review of Systems All systems: negative Constitutional: Denies anorexia, Denies chills, Denies fatigue, Denies fever, Denies malaise, Denies poor appetite, Denies sweats, Denies weakness Eyes: denies blurred vision, denies pain Ears: bilateral: tinnitus Ears, nose, mouth and throat: Reports headache, Reports hoarseness, Reports sinus pressure, Reports vertigo, Denies dental pain, Denies mouth pain, Denies sore throat, Denies voice changes Cardiovascular: Reports chest pain, Denies decreased exercise tolerance, Denies dyspnea on exertion, Denies edema, Denies leg edema, Denies lightheadedness, Denies shortness of breath, Denies syncope Respiratory: Reports cough, Denies cough with sputum, Denies dyspnea, Denies excessive sputum, Denies hemoptysis, Denies home oxygen Gastrointestinal: Denies abdominal pain, Denies diarrhea, Denies nausea, Denies vomiting Genitourinary: Denies dysuria, Denies hematuria Musculoskeletal: Denies myalgias Integumentary: Denies pruritus, Denies rash Neurological: Denies numbness, Denies weakness Psychiatric: Denies anxiety, Denies depression Endocrine: Denies fatigue, Denies weight change Past Medical History Past Medical History: Asthma, COPD, Diabetes Mellitus, Hyperlipidemia, Hypertension Additional Past Medical History / Comment(s): lower back, neck and headaches History of Any Multi-Drug Resistant Organisms: None Reported Past Surgical History: Orthopedic Surgery, Tonsillectomy, Tubal Ligation Additional Past Surgical History / Comment(s): hemorrhoidectomy. Missing left knee cap secondary to accident in the . PAIN CLINIC PROCEDURES Past Anesthesia/Blood Transfusion Reactions: No Reported Reaction Past Psychological History: No Psychological Hx Reported Smoking Status: Current every day smoker Past Alcohol Use History: None Reported Additional Past Alcohol Use History / Comment(s): Vision is a smoker of 2 packs per day for 50 years. She denies any marijuana, street drug or alcohol use. She lives with her son and [id number]. Past Drug Use History: None Reported - Past Family History Mother Family Medical History: Cancer Additional Family Medical History / Comment(s): Mother in her 80s from renal failure secondary to complication from diabetes. Father Family Medical History: Cancer Additional Family Medical History / Comment(s): Father at age 58 from esophageal cancer Sister(s) Family Medical History: Cancer Additional Family Medical History / Comment(s): Patient has 2 sisters. One from brain cancer and one from lung cancer. Brother(s) Family Medical History: Cancer Additional Family Medical History / Comment(s): Patient has 2 brothers one from combinations of diabetes. One is alive with no major medical problems. Daughter(s) Additional Family Medical History / Comment(s): Patient has 2 sons and 1 daughter with no major medical problems. Medications and Allergies Home Medications Medication Instructions Recorded Confirmed Type Glimepiride [Amaryl] 1 mg PO AC-LUNCH 07/26/16 09/24/17 History Lovastatin [Mevacor] 40 mg PO HS 07/26/16 09/24/17 History metFORMIN HCL 1 tab PO BID 07/26/16 09/24/17 History Acetaminophen Tab [Tylenol Tab] 500 mg PO Q6H PRN 09/21/16 09/24/17 History NIFEdipine [NIFEdipine ER] 30 mg PO DAILY 09/21/16 09/24/17 History Cholecalciferol [Vitamin D3] 1,000 unit PO DAILY 09/25/16 09/24/17 History Loratadine [Claritin] 10 mg PO DAILY PRN 09/25/16 09/24/17 History Lisinopril-Hctz 20-25 mg 1 tab PO DAILY 10/02/16 09/24/17 History [Zestoretic 20-25] Allergies Allergy/AdvReac Type Severity Reaction Status Date / Time aspirin Allergy Nausea & Verified 09/24/17 10:37 Vomiting Physical Exam Vitals: Vital Signs Temp Pulse Resp BP Pulse Ox 09/24/17 13:15 97.1 F L 81 18 163/69 97 09/24/17 12:15 85 16 157/67 99 09/24/17 11:15 97.5 F L 60 18 154/69 99 09/24/17 08:52 97 F L 96 18 178/83 97 Intake and Output 09/23/17 09/24/17 09/24/17 22:59 06:59 14:59 Other: Weight 81.647 kg Gen: This is a obese 62-year-old female sitting up on the stretcher in the ER and appears to be comfortable. No acute respiratory distress noted. HEENT: Head is atraumatic, normocephalic. Pupils equal, round. Sclerae is anicteric. Positive nystagmus NECK: Supple. No JVD. No lymphadenopathy. No thyromegaly. LUNGS: Clear to auscultation. No wheezes or rhonchi. No intercostal retractions. HEART: Regular rate and rhythm. No murmur. ABDOMEN: Soft. Bowel sounds are present. No masses. No tenderness. EXTREMITIES: No pedal edema. No calf tenderness. Dorsalis pedis +2 bilaterally. NEUROLOGICAL: Patient is awake, alert and oriented x3. Cranial nerves 2 through 12 are grossly intact. Results CBC & Chem 7: 09/24/17 10:15 09/24/17 10:15 Labs: Abnormal Lab Results - Last 24 Hours (Table) 09/24/17 Range/Units 10:15 BUN 20 H (7-17) mg/dL Glucose 138 H (74-99) mg/dL Thrombosis Risk Factor Assmnt - DVT/VTE Prophylaxis DVT/VTE Prophylaxis: Pharmacologic Prophylaxis ordered Assessment and Plan Plan: 1. Dizziness, rule out CVA, rule out benign paroxysmal positional vertigo rule out viral vestibular neuronitis secondary to recent sinus infection. Consult with neurology. MRI and echocardiogram of been ordered, neuro checks per protocol. Continue Claritin. 2. Left internal carotid artery stenosis of 50-69% found on carotid duplex. 3. Diabetes mellitus type 2. Continue metformin 1000 g twice daily, glimepiride 1 mg at lunch daily, NovoLog scale before meals and at bedtime, hemoglobin A1c. 4. Hyperlipidemia. Continue lovastatin. 5. Hypertension. Continue nifedipine 30 mg daily at bedtime and lisinopril/ hydrochlorothiazide 1 daily in the morning. 6. Vitamin D deficiency. Continue supplement. 7. Recent treatment for sinus infection and completed course of antibiotics, stable. 8. Chronic headache and chronic back pain. Tylenol as needed. 9. DVT prophylaxis. Lovenox. 10. GI prophylaxis. Pepcid. Patient placed as an observation status. Discharge plan: Return home Impression and plan of care have been directed as dictated by the signing physician. Rebekah Santos nurse practitioner acting as scribe for signing physician.
[2017-09-24] MEDS: INSULIN ASPART 100 UNIT/ML 1 ML 10 ML VIAL SQ SCH ×2 (18:31→21:31)
[2017-09-24] MEDS: GLIMEPIRIDE 1 MG TAB PO SCH (19:08)
[2017-09-24] MEDS: NICOTINE 21MG/24HR PATCH TRANSDERM SCH (19:09)
[2017-09-24] MEDS ORDERED: ATORVASTATIN 10 MG TAB PO SCH (21:00)
[2017-09-24] MEDS ORDERED: NIFEdipine XL 30 MG TAB.ER.24 PO SCH (21:00)
[2017-09-24] MEDS: metFORMIN 500 MG TAB PO SCH (21:02)
[2017-09-24 21:20] LABS: Glucose,Whole Blood 125 mg/dL (75-99)
--- NOTE | 2017-09-24 21:54 | P.CNNES ---
History of Present Illness Consult date: 09/24/17 History of Present Illness: Patient is a 62-year-old woman who experienced 4 episodes of positional vertigo yesterday lasting about 1 minute. This was associated with nausea. All were precipitated by quick head or neck movements. The patient states that if she rolled over in bed quickly regarding up quickly from bed or in a sitting position she had the vertigo. Today she went to work. She was unable to function at work because of the bending required. She felt dizziness and also had an episode of feeling chills and shivers and employer suggested she go to the hospital. She drove herself to the hospital. She states that the episodes of vertigo occur mainly if she turns her neck quickly. She was treated for a sinus infection 3 weeks ago and was given some antibiotic. She does get sinus infections frequently. She denied any prior history of vertigo. She denied any associated neurologic symptoms with the vertigo such as perioral numbness or visual changes or focal weakness or numbness. Does have chronic numbness of the left foot for years. She attributed that to her diabetes. She had a CAT scan of the brain in the emergency room which showed nonspecific white matter changes. She had a carotid ultrasound which showed left internal carotid stenosis of 50-69%. Review of Systems Constitutional: Denies chills, Denies fever Cardiovascular: Denies chest pain, Denies shortness of breath Respiratory: Denies cough Musculoskeletal: Denies myalgias Neurological: Denies numbness, Denies weakness Psychiatric: Denies anxiety, Denies depression Past Medical History Past Medical History: Asthma, COPD, Diabetes Mellitus, Hyperlipidemia, Hypertension Additional Past Medical History / Comment(s): lower back, neck and headaches History of Any Multi-Drug Resistant Organisms: None Reported Past Surgical History: Orthopedic Surgery, Tonsillectomy, Tubal Ligation Additional Past Surgical History / Comment(s): hemorrhoidectomy. Missing left knee cap secondary to accident in the . PAIN CLINIC PROCEDURES Past Anesthesia/Blood Transfusion Reactions: No Reported Reaction Past Psychological History: No Psychological Hx Reported Smoking Status: Current every day smoker Past Alcohol Use History: None Reported Additional Past Alcohol Use History / Comment(s): Vision is a smoker of 2 packs per day for 50 years. She denies any marijuana, street drug or alcohol use. She lives with her son and [id number]. Past Drug Use History: None Reported - Past Family History Mother Family Medical History: Cancer Additional Family Medical History / Comment(s): Mother in her 80s from renal failure secondary to complication from diabetes. Father Family Medical History: Cancer Additional Family Medical History / Comment(s): Father at age 58 from esophageal cancer Sister(s) Family Medical History: Cancer Additional Family Medical History / Comment(s): Patient has 2 sisters. One from brain cancer and one from lung cancer. Brother(s) Family Medical History: Cancer Additional Family Medical History / Comment(s): Patient has 2 brothers one from combinations of diabetes. One is alive with no major medical problems. Daughter(s) Additional Family Medical History / Comment(s): Patient has 2 sons and 1 daughter with no major medical problems. Medications and Allergies Home Medications Medication Instructions Recorded Confirmed Type Glimepiride [Amaryl] 1 mg PO AC-LUNCH 07/26/16 09/24/17 History Lovastatin [Mevacor] 40 mg PO HS 07/26/16 09/24/17 History metFORMIN HCL 1 tab PO BID 07/26/16 09/24/17 History Acetaminophen Tab [Tylenol Tab] 500 mg PO Q6H PRN 09/21/16 09/24/17 History NIFEdipine [NIFEdipine ER] 30 mg PO DAILY 09/21/16 09/24/17 History Cholecalciferol [Vitamin D3] 1,000 unit PO DAILY 09/25/16 09/24/17 History Loratadine [Claritin] 10 mg PO DAILY PRN 09/25/16 09/24/17 History Lisinopril-Hctz 20-25 mg 1 tab PO DAILY 10/02/16 09/24/17 History [Zestoretic 20-25] Allergies Allergy/AdvReac Type Severity Reaction Status Date / Time aspirin Allergy Nausea & Verified 09/24/17 10:37 Vomiting Physical Examination - Vital Signs Vital Signs: Vital Signs Temp Pulse Pulse Resp BP BP Pulse Ox 09/24/17 20:00 99.3 F 87 20 151/71 95 09/24/17 18:53 90 16 152/70 95 09/24/17 17:15 98.9 F 87 16 147/71 94 L 09/24/17 16:49 98.4 F 80 18 142/64 94 L 09/24/17 16:10 97.7 F 82 18 149/65 94 L 09/24/17 15:15 97.7 F 83 20 145/65 95 09/24/17 13:15 97.1 F L 68 20 156/56 99 09/24/17 12:15 85 16 157/67 99 09/24/17 11:15 97.5 F L 60 18 154/69 99 09/24/17 08:52 97 F L 96 18 178/83 97 Intake and Output 09/24/17 09/24/17 09/24/17 06:59 14:59 22:59 Other: Voiding Method Toilet # Voids 1 Weight 81.647 kg - Constitutional General appearance: average body habitus, cooperative - EENT EENT: PERRL, hearing intact, vision intact - Respiratory Respiratory: rhonchi - Cardiovascular Cardiovascular: regular rate, normal S1 - Neurologic Mental status: She was awake alert and oriented 3 her speech was fluent there was no a aphasia or dysarthria. Cranial nerve examination: PERRL, EOMI, VFF, face symmetric, tongue midline Speech examination: intact Sensorimotor examination: intact Detailed motor examination: grossly full strength in all extremities Reflexes: 2+: bicep - Psychiatric Psychiatric: mood/affect appropriate Results - Laboratory Findings CBC and BMP: 09/24/17 10:15 09/24/17 10:15 Abnormal Lab Findings: Abnormal Labs 09/24/17 09/24/17 10:15 21:18 BUN 20 H Glucose 138 H POC Glucose (mg/dL) 125 H Assessment and Plan (1) Vertigo Current Visit: Yes Status: Acute SNOMED Code(s): 961132036 (2) TIA (transient ischemic attack) Current Visit: Yes Status: Acute SNOMED Code(s): 581492931 Plan: The patient is a 62-year-old woman with history of recent onset vertigo. Her vertigo is positional and brief. There is no other associated symptom with the vertigo. The patient had recent sinus infection and likely has a viral vestibular neuronitis. Recommend reduce salt and fluid intake. Recommend evaluation by ENT for possible benign positional vertigo, which can be done outpatient if symptoms improved.. She has had a carotid ultrasound which showed 50-69% left ICA stenosis. Recommend MRA of the carotid arteries. If any significant stenosis recommend vascular consultation She is already scheduled for MRI of the brain. Also echocardiogram is scheduled. The patient is unable to tolerate aspirin due to gastric side effects. We'll await results of all studies before any recommendation for antiplatelet therapy.
[2017-09-24 23:10] LABS: Hemoglobin A1C 6.6 % (4.0-6.0)
[2017-09-25 00:50] VITALS: RESP 18
[2017-09-25 06:25] LABS: Glucose,Whole Blood 151 mg/dL (75-99)
[2017-09-25] MEDS: INSULIN ASPART 100 UNIT/ML 1 ML 10 ML VIAL SQ SCH ×2 (06:25→11:54)
[2017-09-25 07:21] LABS: Cholesterol 157 mg/dL (<200); HDL Cholesterol 49 mg/dL (40-60); LDL Cholesterol,Calculated 78 mg/dL (0-99); Triglycerides 149 mg/dL (<150)
[2017-09-25] MEDS ORDERED: FAMOTIDINE 20 MG TAB PO SCH (09:00)
[2017-09-25] MEDS ORDERED: ENOXAPARIN 40 MG/0.4 ML SYRINGE SQ SCH (09:00)
[2017-09-25] MEDS ORDERED: LISINOPRIL-HCTZ 20-25 MG 1 EACH TAB PO SCH (09:00)
[2017-09-25] MEDS ORDERED: MECLIZINE 25 MG TAB PO PRN (09:02)
[2017-09-25] MEDS: NICOTINE 21MG/24HR PATCH TRANSDERM SCH (09:03)
[2017-09-25] MEDS: metFORMIN 500 MG TAB PO SCH (09:04)
--- NOTE | 2017-09-25 10:51 | ECHOF ---
Referral Reason:lvf MEASUREMENTS -------- HEIGHT: 165.1 cm WEIGHT: 81.6 kg BP: RVIDd: 2.7 cm (< 3.3) IVSd: 1.0 cm (0.6 - 1.1) LVIDd: 4.1 cm (3.9 - 5.3) LVPWd: 1.2 cm (0.6 - 1.1) IVSs: 1.5 cm LVIDs: 2.6 cm LVPWs: 1.5 cm LA Diam: 3.0 cm (2.7 - 3.8) Ao Diam: 2.8 cm (2.0 - 3.7) AV Cusp: 1.7 cm (1.5 - 2.6) LA Diam: 3.5 cm (2.7 - 3.8) MV EXCURSION: 19.913 mm (> 18.000) MV EF SLOPE: 85 mm/s (70 - 150) EPSS: 0.5 cm MV E Chidi: 0.82 m/s MV DecT: 138 ms MV A Chidi: 0.81 m/s MV E/A Ratio: 1.01 RAP: 5.00 mmHg RVSP: 11.86 mmHg FINDINGS -------- Sinus rhythm. This was a techncally difficult study with suboptimal views, , Lumason utilized for enhancement of im ages. The left ventricular size is normal. Left ventricular wall thickness is normal. Overall left vent ricular systolic function is low-normal with, an EF between 50 - 55 %. The right ventricle is normal in size. The left atrial size is normal. The right atrial size is normal. 5.0mg OF Lumason UTLIZED: 2 OR MORE WALL SEGMENTS NOT VISUALIZED. There is mild aortic valve sclerosis. There is no evidence of aortic regurgitation. Mild mitral annular calcification present. Mild mitral regurgitation is present. Mild tricuspid regurgitation present. There is no evidence of pulmonary hypertension. The right v entricular systolic pressure, as measured by Doppler, is 11.86mmHg. There is no pulmonic regurgitation present. The aortic root size is normal. There is no pericardial effusion. CONCLUSIONS -------- 1. This was a techncally difficult study with suboptimal views, , Lumason utilized for enhancement of images. 2. The left ventricular size is normal. 3. Left ventricular wall thickness is normal. 4. Overall left ventricular systolic function is low-normal with, an EF between 50 - 55 %. 5. The right ventricle is normal in size. 6. The left atrial size is normal. 7. 5.0mg OF Lumason UTLIZED: 2 OR MORE WALL SEGMENTS NOT VISUALIZED. 8. There is mild aortic valve sclerosis. 9. Mild mitral annular calcification present. 10. Mild mitral regurgitation is present. 11. Mild tricuspid regurgitation present. 12. There is no evidence of pulmonary hypertension. 13. The right ventricular systolic pressure, as measured by Doppler, is 11.86mmHg. 14. There is no pulmonic regurgitation present. 15. The aortic root size is normal. 16. There is no pericardial effusion. MANAGER AUTO: Whit Gaona RDCS
[2017-09-25 11:34] LABS: Glucose,Whole Blood 147 mg/dL (75-99)
--- NOTE | 2017-09-25 11:47 | MR ---
EXAMINATION TYPE: [facility] DATE OF EXAM: 09/25/2017 COMPARISON: CT brain 09/24/2017, carotid Doppler duplex 09/24/2017 HISTORY: Headache, dizziness rule out CVA TECHNIQUE: Multiplanar, multisequence images of the brain and brainstem is performed without and with IV contras t, utilizing 7.5 mL intravenous Gadavist, [id number] and postcontrast images obtained through the neck pre and postcontrast administration. FINDINGS: Diffusion weighted images demonstrate no evidence of a recent infarct or other diffusion ab normality. There is no extra-axial fluid collection. Scattered and confluence hyperintensities are present in the periventricular and deep white matter on inversion recovery and T2-weighted sequences, approximately 50 lesions are present. 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 The brain volume is age appropriate. Midline structures demonstrate normal morphology. The craniocervical junction appears within normal limits. Post contrast images demonstrate no abnormal enhancement. The dural venous sinuses appear pa tent. The visualized sinuses are remarkable for inflammatory change in the maxillary sinus, ethmoid a ir cells, sphenoid sinus, and the globes are intact. MRA NECK: The proximal internal carotid artery stenosis on the left correlate with ultrasound finding s. Common carotid, internal and external carotid arteries are patent. Vertebral arteries are patent a nd codominant. 3 super aortic branch vessels are present. Left and right subclavian arteries, innominate artery, bas ilar artery are patent. IMPRESSION: Chronic small vessel ischemia and age-related atrophy within the brain. Findings correlate with Doppler duplex, 50-69% diameter stenosis of the proximal internal carotid art tricia on the left.
[2017-09-25] MEDS: GLIMEPIRIDE 1 MG TAB PO SCH (11:54)
[2017-09-25] MEDS ORDERED: CHOLECALCIFEROL 1,000 UNIT TAB PO SCH (12:00)
[2017-09-25 12:26] VITALS: TEMP 98.1
[2017-09-25 12:33] VITALS: BP 136/63; PULSE 84
--- NOTE | 2017-09-26 14:37 | P.DS ---
Providers Date of admission: 09/24/17 11:53 Expected date of discharge: 09/25/17 Attending physician: Ayana Huertas MD Consults: 09/24/17 11:54 Consult Physician Urgent Consulting Provider: Keyana Olivarez Consult Reason/Comments: TIA Do you want consulting provider notified?: Yes Primary care physician: Lisa [facility] [place] Course: This is a 62-year-old female patient of Dr. Reilly with past medical history of diabetes mellitus type 2, hypertension, hyperlipidemia, vitamin D deficiency, chronic low back and neck pain, headaches, tobacco use and dependence. Patient states that starting yesterday evening when she went to bed she had a dizzy spell and she had another one this morning and this is progressively worsened. This room is spinning and is worse with movement. She had a recent sinus infection 3 weeks ago and was treated with an antibiotic for 10 days but she does not remember the name of the antibiotic. She was feeling better after this. She does complain of sinus drainage. She complains of chest pressure but no actual pain. She has a headache to the posterior bilaterally and across her forehead. She does have phlegm production but denies any blood. No heartburn. She does complain of ringing in her ears for the past 2-3 days. She came into the [facility] emergency center for evaluation. Vital signs were stable, she was afebrile. White count 9.6, BUN 20 creatinine 0.56, blood sugar 138. She does state that her hemoglobin A1c last checked was 6.3. Electrolytes and liver function tests were within normal limits. Troponin was negative. Urinalysis was clear. CAT scan of the brain revealed degenerative and nonspecific white matter changes. No acute hemorrhage. Carotid duplex revealed a left internal and external carotid artery stenosis of 50-69%. Patient is to be admitted as observation and consult with neurology. MRI of the brain and echocardiogram of also been ordered. 09/25: Patient has been seen by Dr. Olivarez with recommendations for ENT eval for possible benign positional vertigo as an outpatient, Rafa do salt and fluid intake, there is possible viral vestibular neuronitis. MRI of the brain revealed chronic small vessel ischemic and age-related atrophy within the brain. Echocardiogram reveals EF of 50-55%, mild mitral regurgitation, mild tricuspid regurgitation, no pulmonary hypertension. Patient will be discharged home today in stable condition Discharge diagnoses: 1. Dizziness, rule out CVA, rule out benign paroxysmal positional vertigo rule out viral vestibular neuronitis secondary to recent sinus infection. 2. Left internal carotid artery stenosis of 50-69% found on carotid duplex. 3. Diabetes mellitus type 2. 4. Hyperlipidemia. 5. Hypertension. 6. Vitamin D deficiency. 7. Recent treatment for sinus infection and completed course of antibiotics, stable. 8. Chronic headache and chronic back pain. Discharge plan: Return home Impression and plan of care have been directed as dictated by the signing physician. Rebekah Santos nurse practitioner acting as scribe for signing physician. Patient Condition at Discharge: Good Plan - Discharge Summary Discharge Rx Participant: No New Discharge Prescriptions: New Metoprolol Tartrate 25 mg PO BID #60 tab Nicotine 21Mg/24Hr Patch [Habitrol] 1 patch TRANSDERM DAILY #30 patch Meclizine [Antivert] 25 mg PO TID #90 tab Continue Lovastatin [Mevacor] 40 mg PO HS Glimepiride [Amaryl] 1 mg PO AC-LUNCH metFORMIN HCL 1 tab PO BID Acetaminophen Tab [Tylenol] 500 mg PO Q6H PRN PRN Reason: Pain Loratadine [Claritin] 10 mg PO DAILY PRN PRN Reason: Congestion Cholecalciferol [Vitamin D3] 1,000 unit PO DAILY Lisinopril-Hctz 20-25 mg [Zestoretic 20-25] 1 tab PO DAILY Discontinued NIFEdipine [NIFEdipine ER] 30 mg PO DAILY Discharge Medication List Glimepiride [Amaryl] 1 mg PO AC-LUNCH 07/26/16 [History] Lovastatin [Mevacor] 40 mg PO HS 07/26/16 [History] metFORMIN HCL 1 tab PO BID 07/26/16 [History] Acetaminophen Tab [Tylenol] 500 mg PO Q6H PRN 09/21/16 [History] Cholecalciferol [Vitamin D3] 1,000 unit PO DAILY 09/25/16 [History] Loratadine [Claritin] 10 mg PO DAILY PRN 09/25/16 [History] Lisinopril-Hctz 20-25 mg [Zestoretic 20-25] 1 tab PO DAILY 10/02/16 [History] Meclizine [Antivert] 25 mg PO TID #90 tab 09/25/17 [Rx] Metoprolol Tartrate 25 mg PO BID #60 tab 09/25/17 [Rx] Nicotine 21Mg/24Hr Patch [Habitrol] 1 patch TRANSDERM DAILY #30 patch 09/25/17 [ Rx] Follow up Appointment(s)/Referral(s): [facility] [Provider Group] - 2 Weeks (regarding echo results Spoke to Joan. Office will call with appointment time) [facility] [Provider Group] - 2 Weeks (Please call to schedule appointment) Lisa Reilly MD [Primary Care Provider] - 1 Week (Office is closed. Please call to make appointment) Patient Instructions/Handouts: Transient Ischemic Attack (DC) Discharge Disposition: HOME SELF-CARE
== END 2017-09-25 12:57 | disposition home or self-care (01) ==
LOC: EC 08:51 → 6SEL 11:53
PROVIDERS: ADMIT Internal Medicine; ATTEND Internal Medicine
DX: R42 Dizziness and giddiness (principal); I65.22 Occlusion and stenosis of left carotid artery; E11.9 Type 2 diabetes mellitus without complications; E78.5 Hyperlipidemia, unspecified; I10 Essential (primary) hypertension; E55.9 Vitamin D deficiency, unspecified; R11.0 Nausea; R07.89 Other chest pain; R68.83 Chills (without fever); G89.29 Other chronic pain; M54.5 Low back pain; M54.2 Cervicalgia; R51 Headache; R20.0 Anesthesia of skin; J44.9 Chronic obstructive pulmonary disease, unspecified; F17.210 Nicotine dependence, cigarettes, uncomplicated; E66.9 Obesity, unspecified; Z68.28 Body mass index [BMI] 28.0-28.9, adult; Z80.0 Family history of malignant neoplasm of digestive organs; Z80.8 Family history of malignant neoplasm of other organs or systems; Z80.1 Family history of malignant neoplasm of trachea, bronchus and lung; Z79.84 Long term (current) use of oral hypoglycemic drugs; Z79.899 Other long term (current) drug therapy; Z88.6 Allergy status to analgesic agent
CPT/HCPCS: 99285; 96360 ×2; 96372; 36415; 94760; 93005; 97161; 97165; 80061; 80053; 84484; 85025; 81003; 83036; 93880; 70450; 70549; 70553; G0378 ×2; C8929; S4990 ×2; J1650; A9581; Q9950; 93306

== ENCOUNTER → 2018-08-09 | Outpatient (CLI) | payer MEDICARE, OTHER ==
--- NOTE | 2018-08-09 11:39 | BD ---
EXAMINATION TYPE: Axial Bone Density DATE OF EXAM: 08/09/2018 COMPARISON: NONE CLINICAL HISTORY: Disorder of bone Height: 5 FT 3 1/4 IN Weight: 172 FRAX RISK QUESTIONS: History of Fracture in Adulthood: YES Secondary Osteoporosis: 3. Menopause before 45: YES Current Tobacco Use: YES RISK FACTORS HISTORY OF: Active: YES Postmenopausal woman: AGE 40 Lost more than 2 inches in height since high school: YES Poor Health: FAIR MEDICATIONS: Additional Medications: METFORMIN, LOVASTATIN,LISINOPRIL,METOPROLOL, LOVASTATIN, VENTOLIN, DIABETIC M ED, TYLENOL, Additional History: EXAM MEASUREMENTS: Bone mineral densitometry was performed using the Zola System. Bone mineral density as measured about the Lumbar spine is: ----- L1-L4(G/cm2): 1.433 T Score Values are as follows: ----- L2: 1.1 ----- L3: 3.5 ----- L4: 2.7 ----- L1-L4: 2.1 BASELINE Bone mineral density about the R hip (g/cm2): 1.040 Bone mineral density about the L hip (g/cm2): 1.039 T Score values are as follows: -----R Neck: 0.0 -----L Neck: 0.0 -----R Total: 1.2 -----L Total: 0.7 BASELINE IMPRESSION: Normal (Values between +1 and -1 indicate normal bone mass). Consider repeating this study in 5 year s or sooner if there is some new clinical indication. NOTE: T-SCORE=SD OF THE YOUNG ADULT MEAN.
--- NOTE | 2018-08-12 10:55 | MM ---
Reason for exam: screening (asymptomatic). Last mammogram was performed 1 year and 4 months ago. History: Patient is postmenopausal. Physical Findings: A clinical breast exam by your physician is recommended on an annual basis and results should be correlated with mammographic findings. MG Screening Mammo w CAD Bilateral CC and MLO view(s) were taken. XCCL view(s) were taken of the right breast. Prior study comparison: March 30, 2017, bilateral MG screening mammo w CAD. October 21, 2015, bilateral MG screening mammo w CAD. The breast tissue is heterogeneously dense. This may lower the sensitivity of mammography. Benign appearing bilateral calcifications. No suspicious abnormality. No significant changes when compared with prior studies. ASSESSMENT: Benign, BI-RAD 2 RECOMMENDATION: Routine screening mammogram of both breasts in 1 year.
== END ==
LOC: RADMAMWWP 06:52
PROVIDERS: ATTEND Internal Medicine
DX: Z12.31 Encounter for screening mammogram for malignant neoplasm of breast (principal); M89.9 Disorder of bone, unspecified
CPT/HCPCS: 77067; 77080

== ENCOUNTER → 2019-05-09 | Outpatient (CLI) | payer MEDICARE, OTHER ==
--- NOTE | 2019-05-11 20:58 | US ---
EXAMINATION TYPE: US kidneys/renal and bladder DATE OF EXAM: 05/09/2019 COMPARISON: NONE CLINICAL HISTORY: R10.9 Flank pain. UTI, diabetic, smoker, large body habitus EXAM MEASUREMENTS: Right Kidney: 11.0 x 4.6 x 4.9 cm Left Kidney: 11.5 x 4.5 x 7.0 cm Right Kidney: No hydronephrosis or masses seen Left Kidney: No hydronephrosis or masses seen Bladder: wnl Bilateral Jets seen: yes IMPRESSION: Negative exam. No evidence of renal mass or obstruction.
== END ==
LOC: RADUSMAIN 17:23
PROVIDERS: ATTEND Internal Medicine
DX: R10.9 Unspecified abdominal pain (principal)
CPT/HCPCS: 76770

== ENCOUNTER → 2019-11-26 | Outpatient (CLI) | payer MEDICARE, OTHER ==
--- NOTE | 2019-11-26 13:59 | XR ---
EXAMINATION TYPE: XR chest 2V DATE OF EXAM: 11/26/2019 COMPARISON: NONE HISTORY: Shortness of breath TECHNIQUE: Frontal and lateral views of the chest are obtained. FINDINGS: Scattered senescent parenchymal changes noted. Hyperinflation compatible with COPD. No evidence for infiltrate. No evidence for atelectasis. Heart size is stable. Mediastinal structures are stable and grossly unremarkable. No evidence for hilar prominence. Degenerative changes dorsal spine. IMPRESSION: 1. No evidence for acute pulmonary disease.
== END | disposition home or self-care (01) ==
LOC: RADXRMAIN 13:36
PROVIDERS: ATTEND Internal Medicine
DX: R05 Cough (principal)
CPT/HCPCS: 71046

== ENCOUNTER → 2020-03-18 | Outpatient (CLI) | payer MEDICARE, OTHER ==
--- NOTE | 2020-03-22 12:19 | MM ---
Reason for exam: screening (asymptomatic). Last mammogram was performed 1 year and 7 months ago. History: Patient is postmenopausal. Physical Findings: A clinical breast exam by your physician is recommended on an annual basis and results should be correlated with mammographic findings. MG Screening Mammo w CAD Bilateral CC and MLO view(s) were taken. Prior study comparison: August 09, 2018, bilateral MG screening mammo w CAD. March 30, 2017, bilateral MG screening mammo w CAD. The breast tissue is heterogeneously dense. This may lower the sensitivity of mammography. There is chronic nodularity in the left breast. 6-7 o'clock nodular asymmetry and superior anterior asymmetric density right breast are more defined. ASSESSMENT: Incomplete: need additional imaging evaluation, BI-RAD 0 RECOMMENDATION: Special view mammogram of the right breast. (3D) If lesion persists on supplemental views, image directed ultrasound is recommended. [facility] will attempt to contact patient to return for supplemental views and ultrasound if indicated.
== END | disposition home or self-care (01) ==
LOC: RADMAMWWP 15:42
PROVIDERS: ATTEND Internal Medicine
DX: Z12.31 Encounter for screening mammogram for malignant neoplasm of breast (principal)
CPT/HCPCS: 77067

== ENCOUNTER → 2020-04-02 | Outpatient (CLI) | payer MEDICARE, OTHER ==
--- NOTE | 2020-04-05 09:22 | MM ---
Reason for exam: additional evaluation requested from abnormal screening. Last mammogram was performed less than 1 month ago. History: Patient is postmenopausal. Physical Findings: Nurse did not find any significant physical abnormalities on exam. MG Work Up Mamm w CAD RT Spot compression CC, spot compression MLO, and ML view(s) were taken of the right breast. Prior study comparison: March 18, 2020, bilateral MG screening mammo w CAD. August 09, 2018, bilateral MG screening mammo w CAD. The breast tissue is heterogeneously dense. This may lower the sensitivity of mammography. There is no discrete abnormality including area of concern anterior right breast. No significant new findings when compared with previous films. These results were verbally communicated with the patient and result sheet given to the patient on 04/02/20. ASSESSMENT: Probably benign, BI-RAD 3 RECOMMENDATION: Follow-up diagnostic mammogram of the right breast in 6 months.
== END | disposition home or self-care (01) ==
LOC: RADMAMWWP 14:44
PROVIDERS: ATTEND Internal Medicine
DX: R92.8 Other abnormal and inconclusive findings on diagnostic imaging of breast (principal)
CPT/HCPCS: 77065

== ENCOUNTER 2021-02-28 14:44 | Inpatient (IN) | payer MEDICARE, OTHER ==
[2021-02-28 17:27] LABS: Basophils % (A) 0 %; Eosinophils % (A) 0 %; HGB 13.1 gm/dL (11.4-16.0); Lymphocytes # (A) 0.7 k/uL (1.0-4.8); Lymphocytes % (A) 15 %; MCH 29.5 pg (25.0-35.0); MCHC 33.5 g/dL (31.0-37.0); MCV 88.2 fL (80.0-100.0); Mean Platelet Volume 8.8; Monocytes # (A) 0.3 k/uL (0-1.0); Monocytes % (A) 6 %; Neutrophils # (A) 3.5 k/uL (1.3-7.7); Neutrophils % (A) 76 %; Platelet Count 153 k/uL (150-450); Poikilocytosis Slight; RBC 4.43 m/uL (3.80-5.40); RDW 14.1 % (11.5-15.5); WBC 4.6 k/uL (3.8-10.6)
[2021-02-28 17:36] LABS: Albumin 3.9 g/dL (3.5-5.0); Calcium 8.6 mg/dL (8.4-10.2); Potassium 4.2 mmol/L (3.5-5.1); Total Bilirubin 0.5 mg/dL (0.2-1.3); Total Protein 6.9 g/dL (6.3-8.2)
--- NOTE | 2021-02-28 19:05 | XR ---
EXAMINATION TYPE: XR chest 2V DATE OF EXAM: 02/28/2021 COMPARISON: Chest radiograph 11/26/2019 HISTORY: Shortness of breath. TECHNIQUE: Frontal and lateral views of the chest are obtained. FINDINGS: There is no focal air space opacity, pleural effusion, or pneumothorax seen. The cardiac silhouette size is within normal limits. The osseous structures are intact. IMPRESSION: No acute cardiopulmonary process.
--- NOTE | 2021-02-28 20:12 | CT ---
EXAMINATION TYPE: CT chest angio for PE DATE OF EXAM: 02/28/2021 COMPARISON: Mammogram 10/21/2015 HISTORY: cough, SOB, +covid CT DLP: 360 mGycm Automated exposure control for dose reduction was used. CONTRAST: CT Chest for pulmonary embolism performed with with IV Contrast, patient injected with 100 mL of Isov ue 370. FINDINGS: LUNGS: There are a few scattered areas of groundglass opacities. There is a fissural groundglass opac ity in the left greater than right upper lobes. Emphysematous changes at the lung apices. No effusion or pneumothorax. . Visualized airways are patent. MEDIASTINUM: There are some mildly enlarged bihilar lymph nodes and some prominent but nonenlarged hi lar lymph nodes. No Pericardial effusion. Contrast opacifies the central pulmonary arterial vasculatu re without filling defect. Tiny hiatal hernia. OTHER: Partial visualization of the spleen which appears enlarged. A 4cm predominantly fat attenuation lesion of the left adrenal gland with in the hyperdense component . Calcified lesion in the right breast as seen on prior mammogram. IMPRESSION: 1. No pulmonary embolus. 2. Scattered groundglass opacities bilaterally and in the lingula favored to be of of infectious/inf lammatory etiology on a background of emphysematous changes. Bihilar and mediastinal enlarged lymph n odes are likely reactive. 3. Partial visualization of the spleen which appears enlarged. 4. A 4cm predominantly fat attenuation lesion of the left adrenal gland with small hyperdense compon ent. Recommend nonemergent adrenal washout protocol CT.
[2021-02-28] MEDS ORDERED: HEPARIN SODIUM 1,000 UN/ML (10ML VL) IV ONE (20:31)
[2021-02-28] MEDS ORDERED: HEPARIN SODIUM 1,000 UN/ML (10ML VL) IV PRN (20:31)
--- NOTE | 2021-02-28 20:32 | ED ---
SOB HPI - General Chief Complaint: Shortness of Breath Stated Complaint: weakness, SOB Time Seen by Provider: 02/28/21 18:38 Source: patient Limitations: no limitations - History of Present Illness Initial Comments: 65-year-old female presents emergency room with reported shortness of breath. She has a history of asthma, COPD, diabetes. She states that she has had 5-6 days worth of shortness of breath, fevers, chills. States that she hasn't been eating or drinking anything. She did not receive her vaccination. States that her son was sick and hospitalized for symptoms. She denies previous history of cardiac disease. No chest pain. Unsure if she has had a cardiac workup. Admits to COPD for which she uses a nebulizer. Denies home oxygen use. Patient also reports to diarrhea. No other alleviating, Percepting or modifying factors - Related Data Home Medications Medication Instructions Recorded Confirmed Lovastatin [Mevacor] 40 mg PO AC-SUPPER 07/26/16 02/28/21 metFORMIN HCL [Glucophage] 1,000 mg PO BID 07/26/16 02/28/21 Cholecalciferol [Vitamin D3 (25 25 mcg PO DAILY 09/25/16 02/28/21 Mcg = 1000 Iu)] Fluticasone Furoate [Arnuity 1 puff INHALATION RT-DAILY 02/28/21 02/28/21 Ellipta] Glimepiride [Amaryl] 2 mg PO DAILY 02/28/21 02/28/21 Losartan [Cozaar] 50 mg PO DAILY 02/28/21 02/28/21 Metoprolol Tartrate [Lopressor] 50 mg PO BID 02/28/21 02/28/21 hydroCHLOROthiazide [Hydrodiuril] 25 mg PO DAILY 02/28/21 02/28/21 Allergies Allergy/AdvReac Type Severity Reaction Status Date / Time aspirin AdvReac Nausea & Verified 02/28/21 19:55 Vomiting Review of Systems ROS Statement: Those systems with pertinent positive or pertinent negative responses have been documented in the HPI. ROS Other: All systems not noted in ROS Statement are negative. Past Medical History Past Medical History: Asthma, COPD, Diabetes Mellitus, Hyperlipidemia, Hypertension Additional Past Medical History / Comment(s): lower back, neck and headaches History of Any Multi-Drug Resistant Organisms: None Reported Past Surgical History: Orthopedic Surgery, Tonsillectomy, Tubal Ligation Additional Past Surgical History / Comment(s): hemorrhoidectomy. Missing left knee cap secondary to accident in the 1970's. PAIN CLINIC PROCEDURES Past Anesthesia/Blood Transfusion Reactions: No Reported Reaction Past Psychological History: No Psychological Hx Reported Smoking Status: Current every day smoker Past Alcohol Use History: None Reported Past Drug Use History: None Reported - Past Family History Mother Family Medical History: Cancer Additional Family Medical History / Comment(s): Mother in her 80s from renal failure secondary to complication from diabetes. Father Family Medical History: Cancer Additional Family Medical History / Comment(s): Father at age 58 from esophageal cancer Sister(s) Family Medical History: Cancer Additional Family Medical History / Comment(s): Patient has 2 sisters. One from brain cancer and one from lung cancer. Brother(s) Family Medical History: Cancer Additional Family Medical History / Comment(s): Patient has 2 brothers one from combinations of diabetes. One is alive with no major medical problems. Daughter(s) Additional Family Medical History / Comment(s): Patient has 2 sons and 1 daughter with no major medical problems. General Exam Limitations: no limitations General appearance: alert, in no apparent distress Head exam: Present: atraumatic, normocephalic, normal inspection Eye exam: Present: normal appearance, PERRL, EOMI. Absent: scleral icterus, conjunctival injection, periorbital swelling ENT exam: Present: normal exam, mucous membranes moist Neck exam: Present: normal inspection. Absent: tenderness, meningismus, l ymphadenopathy Respiratory exam: Present: wheezes, accessory muscle use, other (tachpynia). Absent: respiratory distress, rales, rhonchi, stridor Cardiovascular Exam: Present: normal rhythm, tachycardia, normal heart sounds. Absent: systolic murmur, diastolic murmur, rubs, gallop, clicks GI/Abdominal exam: Present: soft, normal bowel sounds. Absent: distended, tenderness, guarding, rebound, rigid Extremities exam: Present: normal inspection, full ROM, normal capillary refill. Absent: tenderness, pedal edema, joint swelling, calf tenderness Back exam: Present: normal inspection Neurological exam: Present: alert, oriented X3, CN II-XII intact Psychiatric exam: Present: normal affect, normal mood Skin exam: Present: warm, dry, intact, normal color. Absent: rash Course Vital Signs 02/28/21 02/28/21 02/28/21 16:52 19:00 19:22 Temperature 98.7 F Pulse Rate 103 H 95 Respiratory 18 20 20 Rate Blood Pressure 132/62 149/62 O2 Sat by Pulse 93 L 92 L Oximetry 02/28/21 02/28/21 20:22 23:40 Temperature Pulse Rate 95 78 Respiratory 18 18 Rate Blood Pressure 151/55 148/79 O2 Sat by Pulse 97 96 Oximetry - Reevaluation(s) Reevaluation #1: 02/28/21 21:[address] Mccormick Medical Decision Making - Medical Decision Making Upon arrival patient is placed in room 10. History and physical exam is performed. IV is established. Laboratory says her conducted. 12 EKG was performed. Lab studies are reviewed. Covid is detected. Troponin 0.152. Chest x-ray demonstrates no acute cart opponent process. She is sent over for a CT of her chest which demonstrates scattered groundglass opacities bilaterally. No pulmonary embolus. Patient has no contraindications to heparinization and therefore she is heparinized. I spoke with Dr. Mccormick in regards to the patient's presence. I spoke with Dr. Adair who agreed to admit the patient. I gave her 6 mg of IV Decadron and the first dose of Remdesivir. She is awaiting a bed on the floor. - Lab Data Result diagrams: 03/01/21 08:34 03/01/21 08:34 Lab Results 02/28/21 02/28/21 02/28/21 Range/Units 17:04 17:04 17:04 WBC 4.6 (3.8-10.6) k/uL RBC 4.43 (3.80-5.40) m/uL Hgb 13.1 (11.4-16.0) gm/dL Hct 39.0 (34.0-46.0) % MCV 88.2 (80.0-100.0) fL MCH 29.5 (25.0-35.0) pg MCHC 33.5 (31.0-37.0) g/dL RDW 14.1 (11.5-15.5) % Plt Count 153 (150-450) k/uL MPV 8.8 Neutrophils % 76 % Lymphocytes % 15 % Monocytes % 6 % Eosinophils % 0 % Basophils % 0 % Neutrophils # 3.5 (1.3-7.7) k/uL Lymphocytes # 0.7 L (1.0-4.8) k/uL Monocytes # 0.3 (0-1.0) k/uL Eosinophils # 0.0 (0-0.7) k/uL Basophils # 0.0 (0-0.2) k/uL Poikilocytosis Slight Sodium 135 L (137-145) mmol/L Potassium 4.2 (3.5-5.1) mmol/L Chloride 101 (98-107) mmol/L Carbon Dioxide 22 (22-30) mmol/L Anion Gap 12 mmol/L BUN 31 H (7-17) mg/dL Creatinine 0.82 (0.52-1.04) mg/dL Est GFR (CKD-EPI)AfAm 86 (>60 ml/min/1.73 sqM) Est GFR (CKD-EPI)NonAf 74 (>60 ml/min/1.73 sqM) Glucose 210 H (74-99) mg/dL Plasma Lactic Acid Yo 1.1 (0.7-2.0) mmol/L Calcium 8.6 (8.4-10.2) mg/dL Total Bilirubin 0.5 (0.2-1.3) mg/dL AST 34 (14-36) U/L ALT 23 (4-34) U/L Alkaline Phosphatase 65 (38-126) U/L Troponin I (0.000-0.034) ng/mL NT-Pro-B Natriuret Pep pg/mL Total Protein 6.9 (6.3-8.2) g/dL Albumin 3.9 (3.5-5.0) g/dL Coronavirus (PCR) (Not Detectd) 02/28/21 02/28/21 02/28/21 Range/Units 17:04 17:04 17:05 WBC (3.8-10.6) k/uL RBC (3.80-5.40) m/uL Hgb (11.4-16.0) gm/dL Hct (34.0-46.0) % MCV (80.0-100.0) fL MCH (25.0-35.0) pg MCHC (31.0-37.0) g/dL RDW (11.5-15.5) % Plt Count (150-450) k/uL MPV Neutrophils % % Lymphocytes % % Monocytes % % Eosinophils % % Basophils % % Neutrophils # (1.3-7.7) k/uL Lymphocytes # (1.0-4.8) k/uL Monocytes # (0-1.0) k/uL Eosinophils # (0-0.7) k/uL Basophils # (0-0.2) k/uL Poikilocytosis Sodium (137-145) mmol/L Potassium (3.5-5.1) mmol/L Chloride (98-107) mmol/L Carbon Dioxide (22-30) mmol/L Anion Gap mmol/L BUN (7-17) mg/dL Creatinine (0.52-1.04) mg/dL Est GFR (CKD-EPI)AfAm (>60 ml/min/1.73 sqM) Est GFR (CKD-EPI)NonAf (>60 ml/min/1.73 sqM) Glucose (74-99) mg/dL Plasma Lactic Acid Yo (0.7-2.0) mmol/L Calcium (8.4-10.2) mg/dL Total Bilirubin (0.2-1.3) mg/dL AST (14-36) U/L ALT (4-34) U/L Alkaline Phosphatase (38-126) U/L Troponin I 0.152 H* (0.000-0.034) ng/mL NT-Pro-B Natriuret Pep 144 pg/mL Total Protein (6.3-8.2) g/dL Albumin (3.5-5.0) g/dL Coronavirus (PCR) Detected A (Not Detectd) - EKG Data EKG Comments: EKG demonstrates normal sinus rhythm with a ventricular rate of 97. NH interval 140. QRS 94. QTC of 439. No acute ST segment elevations or depressions concerning for ischemic changes Critical Care Time Critical Care Time: Yes Critical Care Time: 32 minutes for nstemi, heparinization of the patient Disposition Clinical Impression: COVID-19, NSTEMI (non-ST elevated myocardial infarction), Acute respiratory insufficiency Disposition: ADMITTED IP TO THIS HOSP Condition: Stable Is patient prescribed a controlled substance at d/c from ED?: No Decision to Admit Reason: Admit from EC Decision Date: 02/28/21 Decision Time: 21:11
[2021-02-28] MEDS ORDERED: HEPARIN SOD,PORK IN 0.45% NACL 25,000 UNIT in 0.45% NACL 1 250ML.BAG IV SCH (20:45)
[2021-02-28] MEDS ORDERED: NALOXONE 0.4 MG/ML 1 ML VIAL IV PRN (21:11)
[2021-02-28] MEDS ORDERED: REMDESIVIR 200 MG in SODIUM CHLORIDE 0.9% 250 ML IVPB ONE (22:00)
[2021-02-28] MEDS: DEXAMETHASONE SOD PHOSPHATE 10 MG/ML 1 ML VIAL IV SCH (23:35)
[2021-02-28 23:53] LABS: Glucose,Whole Blood 196 mg/dL (75-99)
[2021-03-01] MEDS: METOPROLOL TARTRATE 50 MG TAB PO SCH ×3 (00:10→19:59)
[2021-03-01] MEDS: CHOLECALCIFEROL 25 MCG (1000 IU) TABLET PO SCH ×2 (00:10→20:00)
[2021-03-01] MEDS: hydroCHLOROthiazide 25 MG TAB PO SCH ×2 (00:10→08:07)
[2021-03-01] MEDS: ATORVASTATIN 10 MG TAB PO SCH ×2 (00:10→19:59)
[2021-03-01] MEDS: LOSARTAN 50 MG TAB PO SCH ×2 (00:11→19:59)
[2021-03-01 06:04] LABS: Glucose,Whole Blood 249 mg/dL (75-99)
[2021-03-01] MEDS: INSULIN ASPART (NovoLOG) 100 UNIT/ML VIAL SQ SCH ×4 (06:44→19:59)
[2021-03-01] MEDS ORDERED: ACETAMINOPHEN TAB 500 MG TAB PO PRN (07:08)
[2021-03-01] MEDS: FLUTICASONE FUROATE 100 MCG INHALATION SCH (08:07)
[2021-03-01] MEDS: DEXAMETHASONE SOD PHOSPHATE 10 MG/ML 1 ML VIAL IV SCH (08:07)
[2021-03-01 09:26] LABS: Prothrombin Time 10.2 sec (9.0-12.0)
[2021-03-01 09:49] LABS: Calcium 8.4 mg/dL (8.4-10.2); Potassium 4.4 mmol/L (3.5-5.1)
[2021-03-01 09:53] LABS: Basophils % (A) 1 %; Eosinophils % (A) 0 %; HCT 37.9 % (34.0-46.0); HGB 12.8 gm/dL (11.4-16.0); Lymphocytes # (A) 0.5 k/uL (1.0-4.8); Lymphocytes % (A) 19 %; MCH 29.5 pg (25.0-35.0); MCHC 33.7 g/dL (31.0-37.0); MCV 87.3 fL (80.0-100.0); Mean Platelet Volume 8.7; Monocytes # (A) 0.1 k/uL (0-1.0); Monocytes % (A) 5 %; Neutrophils # (A) 1.8 k/uL (1.3-7.7); Neutrophils % (A) 70 %; Platelet Count 169 k/uL (150-450); Poikilocytosis Slight; RBC 4.34 m/uL (3.80-5.40); RDW 14.4 % (11.5-15.5); WBC 2.6 k/uL (3.8-10.6)
[2021-03-01 12:25] LABS: Glucose,Whole Blood 194 mg/dL (75-99)
--- NOTE | 2021-03-01 13:40 | P.CNPUL ---
History of Present Illness Consult date: 03/01/21 Requesting physician: Sumeet Adair Reason for consult: dyspnea, abnormal CXR/CT Chief complaint: Shortness of breath History of present illness: This is a pleasant 65-year-old female patient who follows with Dr. Adair as her primary care provider. She has a history of diabetes mellitus, hyperlipidemia, hypertension, COPD with chronic and ongoing tobacco dependence. She presented to the emergency room yesterday with complaints of increasing shortness of breath over the past 5-6 days prior. She has had fever, chills, poor appetite. Poor oral intake. Chest x-ray reveals no acute cardiopulmonary process. CT angiogram ruled out pulmonary embolus. There was noted scattered groundglass opacities bilaterally and in the lingula. COVID-19 screen is positive. White count 2.6. Hemoglobin 12.8. Lymphocytes 0.5. Sodium 137. Potassium 4.4. Creatinine 0.80. Troponin 0.239, 0.201. ProBNP 144. She is seen today in consultation on the selective care unit. She is currently sitting up in bed. Awake and alert in no acute distress. No chest pain, no worsening shortness of breath cough or congestion. Maintaining O2 saturations in the 90s on room air. She did have a T-max of 102.7. Currently 99.5. She was given a REM deficit in the ER yesterday. Continued on Decadron, heparin drip. Review of Systems REVIEW OF SYSTEMS: CONSTITUTIONAL: Generalized weakness. Denies any recent significant weight loss or weight gain. EYES: Denies change in vision. EARS, NOSE, MOUTH, THROAT: Denies headaches, denies sore throat. CARDIOVASCULAR: Denies chest pain, palpitations or syncopal episodes. RESPIRATORY: Positive for shortness of breath, cough, congestion no hemoptysis. GASTROINTESTINAL: Positive for poor appetite, denies abdominal pain GENITOURINARY: Denies hematuria, denies infections. MUSKULOSKELETAL: Denies pain, denies swelling. INTEGUMENTARY: Denies rash, denies eczema. NEUROLOGICAL: Denies recent memory loss, no recent seizure activity. PSYCHIATRIC: Denies anxiety, denies depression. HEMATOLOGIC/LYMPHATIC: Denies anemia, denies enlarged lymph nodes. Past Medical History Past Medical History: Asthma, COPD, Diabetes Mellitus, Hyperlipidemia, Hypertension Additional Past Medical History / Comment(s): lower back, neck and headaches History of Any Multi-Drug Resistant Organisms: None Reported Past Surgical History: Orthopedic Surgery, Tonsillectomy, Tubal Ligation Additional Past Surgical History / Comment(s): hemorrhoidectomy. Missing left knee cap secondary to accident in the s. PAIN CLINIC PROCEDURES Past Anesthesia/Blood Transfusion Reactions: No Reported Reaction Past Psychological History: No Psychological Hx Reported Smoking Status: Current every day smoker Past Alcohol Use History: None Reported Past Drug Use History: None Reported - Past Family History Mother Family Medical History: Cancer Additional Family Medical History / Comment(s): Mother in her 80s from renal failure secondary to complication from diabetes. Father Family Medical History: Cancer Additional Family Medical History / Comment(s): Father at age 58 from esophageal cancer Sister(s) Family Medical History: Cancer Additional Family Medical History / Comment(s): Patient has 2 sisters. One from brain cancer and one from lung cancer. Brother(s) Family Medical History: Cancer Additional Family Medical History / Comment(s): Patient has 2 brothers one from combinations of diabetes. One is alive with no major medical problems. Daughter(s) Additional Family Medical History / Comment(s): Patient has 2 sons and 1 daughter with no major medical problems. Medications and Allergies Home Medications Medication Instructions Recorded Confirmed Type Lovastatin [Mevacor] 40 mg PO AC-SUPPER 07/26/16 02/28/21 History metFORMIN HCL [Glucophage] 1,000 mg PO BID 07/26/16 02/28/21 History Cholecalciferol [Vitamin D3 (25 25 mcg PO DAILY 09/25/16 02/28/21 History Mcg = 1000 Iu)] Fluticasone Furoate [Arnuity 1 puff INHALATION RT-DAILY 02/28/21 02/28/21 History Ellipta] Glimepiride [Amaryl] 2 mg PO DAILY 02/28/21 02/28/21 History Losartan [Cozaar] 50 mg PO DAILY 02/28/21 02/28/21 History Metoprolol Tartrate [Lopressor] 50 mg PO BID 02/28/21 02/28/21 History hydroCHLOROthiazide [Hydrodiuril] 25 mg PO DAILY 02/28/21 02/28/21 History Allergies Allergy/AdvReac Type Severity Reaction Status Date / Time aspirin AdvReac Nausea & Verified 02/28/21 19:55 Vomiting Physical Exam Vitals: Vital Signs Temp Pulse Pulse Resp BP BP Pulse Ox 03/01/21 12:30 99.5 F 64 22 141/62 91 L 03/01/21 08:00 99.5 F 68 18 130/65 90 L 03/01/21 03:52 99.8 F H 77 20 131/62 93 L 03/01/21 02:14 101.7 F H 95 03/01/21 00:34 102.7 F H 100 22 198/72 93 L 02/28/21 23:40 78 18 148/79 96 02/28/21 20:22 95 18 151/55 97 02/28/21 19:22 20 02/28/21 19:00 95 20 149/62 92 L 02/28/21 16:52 98.7 F 103 H 18 132/62 93 L Intake and Output 02/28/21 03/01/21 03/01/21 22:59 06:59 14:59 Intake Total 106.635 Balance 106.635 Intake: Intake, IV Titration 106.635 Amount Heparin Sod,Pork in 0.45% 106.635 NaCl 25,000 unit In 0.45 % NaCl 1 250ml.bag @ 12 UNITS/KG/HR 9.798 mls/hr IV .Q24H [facility] Rx#: [id number] Other: Voiding Method Toilet Toilet # Voids 1 2 Weight 81.647 kg 81 kg GENERAL EXAM: Alert, pleasant 65-year-old female patient, on room air, comfortable in no apparent distress. HEAD: Normocephalic. EYES: Normal reaction of pupils, equal size. NOSE: Clear with pink turbinates. THROAT: No erythema or exudates. NECK: No masses, no JVD. CHEST: No chest wall deformity. LUNGS: Equal air entry with faint crackles in the posterior bases. CVS: S1 and S2 normal with no audible murmur, regular rhythm. ABDOMEN: No hepatosplenomegaly, normal bowel sounds, no guarding or rigidity. SPINE: No scoliosis or deformity SKIN: No rashes CENTRAL NERVOUS SYSTEM: No focal deficits, tone is normal in all 4 extremities. EXTREMITIES: There is no peripheral edema. No clubbing, no cyanosis. Peripheral pulses are intact. Results - Laboratory Findings CBC and BMP: 10/05/21 08:34 03/01/21 08:34 PT/INR, D-dimer PT 10.2 sec (9.0-12.0) 03/01/21 08:34 INR 1.0 (<1.2) 03/01/21 08:34 Abnormal lab findings: Abnormal Labs 02/28/21 02/28/21 02/28/21 17:04 17:04 17:04 WBC Lymphocytes # 0.7 L APTT Sodium 135 L BUN 31 H Glucose 210 H POC Glucose (mg/dL) Troponin I 0.152 H* Coronavirus (PCR) 02/28/21 02/28/21 02/28/21 17:04 21:44 23:50 WBC Lymphocytes # APTT Sodium BUN Glucose POC Glucose (mg/dL) 196 H Troponin I 0.239 H* Coronavirus (PCR) Detected A 03/01/21 03/01/21 03/01/21 02:41 06:02 08:34 WBC 2.6 L Lymphocytes # 0.5 L APTT Sodium BUN Glucose POC Glucose (mg/dL) 249 H Troponin I 0.201 H* Coronavirus (PCR) 03/01/21 03/01/21 03/01/21 08:34 08:34 11:58 WBC Lymphocytes # APTT 43.0 H Sodium BUN 32 H Glucose 216 H POC Glucose (mg/dL) 194 H Troponin I Coronavirus (PCR) - Diagnostic Findings Chest x-ray: image reviewed CT scan - chest: image reviewed Assessment and Plan Assessment: 1 Acute COVID-19 infection with minimal pulmonary complaints and maintaining O2 saturations in the 90s on room air. The patient is not vaccinated. Does not meet requirements for Remdesivir. 2 Febrile illness secondary to above 3 Diabetes mellitus 4 Hyperlipidemia 5 Hypertension 6 History of mild intermittent chronic bronchial asthma/COPD 7 Chronic and ongoing tobacco dependence Plan: The patient was seen and evaluated by Dr. Velasquez Chest x-ray, CAT scans and labs reviewed The patient is on room air Discontinue Remdesivir Discontinue Decadron Would benefit from monoclonal antibodies/Regeneron The plan is to place the patient in outpatient status to receive the medication I, the cosigning physician, performed a history & physical examination of the p atient. Lungs sounds with faint crackles in the posterior bases. Maintaining good O2 saturations in the 90s on room air. I discussed the assessment and plan of care with my nurse practitioner, Zaira Turner. I attest to the above consultation as dictated by her. Time with Patient: Greater than 30
[2021-03-01] MEDS ORDERED: CASIRIVIMAB/IMDEVIMAB (EUA) 1,200 MG in SODIUM CHLORIDE 0.9% 100 ML IVPB ONE (14:00)
[2021-03-01] MEDS ORDERED: SODIUM CHLORIDE 0.9% 50 ML IVPB ONE (14:00)
--- NOTE | 2021-03-01 14:30 | P.CRDCN ---
History of Present Illness Consult date: 03/01/21 History of present illness: CHIEF COMPLAINT: Abnormal troponins HISTORY OF PRESENT ILLNESS: This is a 65-year-old female with a past medical history significant for diabetes, hypertension, hyperlipidemia, COPD, and nicotine dependence. 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 We have been asked to see the patient in consultation for abnormal troponins. Patient initially presented to the hospital secondary to shortness of breath. Patient was found to be positive for Covid. Per nursing, the patient has no complaints of chest pain or pressure. DIAGNOSTICS: EKG reveals sinus mechanism with left anterior fascicular block Chest xray no acute cardiopulmonary process Laboratory data: WBC 2.6. Hemoglobin 12.8. Platelet count 169. Sodium 137. Potassium 4.4. BUN 32. Creatinine 0.80. Troponin 0.152. 0.239. 0.201. Current home cardiac medications include hydrochlorothiazide 25 mg daily, m etoprolol tartrate 50 g twice a day, losartan 50 mg daily REVIEW OF SYSTEMS: Thorough review of systems not completed secondary to limited evaluation/examination due to Covid19 PHYSICAL EXAM: Thorough physical exam not completed secondary to limited evaluation/examination due to Covid19 ASSESSMENT: Acute Covid 19 Abnormal troponins, suspect secondary to above Hypertension Hyperlipidemia COPD Diabetes Nicotine dependence PLAN: Obtain 2D echo to assess cardiac structure and function If no significant abnormalities noted on echocardiogram, we will follow on an as-needed basis Nurse practitioner note has been reviewed by physician. Signing provider agrees with the documented findings, assessment, and plan of care. Past Medical History Past Medical History: Asthma, COPD, Diabetes Mellitus, Hyperlipidemia, Hypertension Additional Past Medical History / Comment(s): lower back, neck and headaches History of Any Multi-Drug Resistant Organisms: None Reported Past Surgical History: Orthopedic Surgery, Tonsillectomy, Tubal Ligation Additional Past Surgical History / Comment(s): hemorrhoidectomy. Missing left knee cap secondary to accident in the s. PAIN CLINIC PROCEDURES Past Anesthesia/Blood Transfusion Reactions: No Reported Reaction Past Psychological History: No Psychological Hx Reported Smoking Status: Current every day smoker Past Alcohol Use History: None Reported Past Drug Use History: None Reported - Past Family History Mother Family Medical History: Cancer Additional Family Medical History / Comment(s): Mother in her 80s from renal failure secondary to complication from diabetes. Father Family Medical History: Cancer Additional Family Medical History / Comment(s): Father at age 58 from esophageal cancer Sister(s) Family Medical History: Cancer Additional Family Medical History / Comment(s): Patient has 2 sisters. One from brain cancer and one from lung cancer. Brother(s) Family Medical History: Cancer Additional Family Medical History / Comment(s): Patient has 2 brothers one from combinations of diabetes. One is alive with no major medical problems. Daughter(s) Additional Family Medical History / Comment(s): Patient has 2 sons and 1 daughter with no major medical problems. Medications and Allergies Home Medications Medication Instructions Recorded Confirmed Type Lovastatin [Mevacor] 40 mg PO AC-SUPPER 07/26/16 02/28/21 History metFORMIN HCL [Glucophage] 1,000 mg PO BID 07/26/16 02/28/21 History Cholecalciferol [Vitamin D3 (25 25 mcg PO DAILY 09/25/16 02/28/21 History Mcg = 1000 Iu)] Fluticasone Furoate [Arnuity 1 puff INHALATION RT-DAILY 02/28/21 02/28/21 History Ellipta] Glimepiride [Amaryl] 2 mg PO DAILY 02/28/21 02/28/21 History Losartan [Cozaar] 50 mg PO DAILY 02/28/21 02/28/21 History Metoprolol Tartrate [Lopressor] 50 mg PO BID 02/28/21 02/28/21 History hydroCHLOROthiazide [Hydrodiuril] 25 mg PO DAILY 02/28/21 02/28/21 History Allergies Allergy/AdvReac Type Severity Reaction Status Date / Time aspirin AdvReac Nausea & Verified 02/28/21 19:55 Vomiting Physical Exam Vitals: Vital Signs Temp Pulse Pulse Resp BP BP Pulse Ox 03/01/21 12:30 99.5 F 64 22 141/62 91 L 03/01/21 08:00 99.5 F 68 18 130/65 90 L 03/01/21 03:52 99.8 F H 77 20 131/62 93 L 03/01/21 02:14 101.7 F H 95 03/01/21 00:34 102.7 F H 100 22 198/72 93 L 02/28/21 23:40 78 18 148/79 96 02/28/21 20:22 95 18 151/55 97 02/28/21 19:22 20 02/28/21 19:00 95 20 149/62 92 L 02/28/21 16:52 98.7 F 103 H 18 132/62 93 L Intake and Output 02/28/21 03/01/21 03/01/21 22:59 06:59 14:59 Intake Total 106.635 Balance 106.635 Intake: Intake, IV Titration 106.635 Amount Heparin Sod,Pork in 0.45% 106.635 NaCl 25,000 unit In 0.45 % NaCl 1 250ml.bag @ 12 UNITS/KG/HR 9.798 mls/hr IV .Q24H [facility] Rx#: [id number] Other: Voiding Method Toilet Toilet # Voids 1 2 Weight 81.647 kg 81 kg Results 03/01/21 08:34 03/01/21 08:34 Cardiac Enzymes 02/28/21 02/28/21 02/28/21 Range/Units 17:04 17:04 21:44 AST 34 (14-36) U/L Troponin I 0.152 H* 0.239 H* (0.000-0.034) ng/mL 03/01/21 Range/Units 02:41 AST (14-36) U/L Troponin I 0.201 H* (0.000-0.034) ng/mL Coagulation 03/01/21 Range/Units 08:34 PT 10.2 (9.0-12.0) sec APTT 43.0 H (22.0-30.0) sec CBC 02/28/21 03/01/21 Range/Units 17:04 08:34 WBC 4.6 2.6 L (3.8-10.6) k/uL RBC 4.43 4.34 (3.80-5.40) m/uL Hgb 13.1 12.8 (11.4-16.0) gm/dL Hct 39.0 37.9 (34.0-46.0) % Plt Count 153 169 (150-450) k/uL Comprehensive Metabolic Panel 02/28/21 03/01/21 Range/Units 17:04 08:34 Sodium 135 L 137 (137-145) mmol/L Potassium 4.2 4.4 (3.5-5.1) mmol/L Chloride 101 102 (98-107) mmol/L Carbon Dioxide 22 24 (22-30) mmol/L BUN 31 H 32 H (7-17) mg/dL Creatinine 0.82 0.80 (0.52-1.04) mg/dL Glucose 210 H 216 H (74-99) mg/dL Calcium 8.6 8.4 (8.4-10.2) mg/dL AST 34 (14-36) U/L ALT 23 (4-34) U/L Alkaline Phosphatase 65 (38-126) U/L Total Protein 6.9 (6.3-8.2) g/dL Albumin 3.9 (3.5-5.0) g/dL Current Medications Generic Name Dose Route Start Last Admin Trade Name Freq PRN Reason Stop Dose Admin Acetaminophen 500 mg 03/01/21 07:08 Acetaminophen Tab 500 Mg Tab PO Q4HR PRN Fever and/ or Pain Atorvastatin Calcium 10 mg 02/28/21 22:45 03/01/21 00:10 Atorvastatin 10 Mg Tab PO 10 mg HS [facility] Administration Cholecalciferol 25 mcg 02/28/21 22:45 03/01/21 00:10 Cholecalciferol 25 Mcg (1000 Iu) Tablet PO 25 mcg HS [facility] Administration Hydrochlorothiazide 25 mg 02/28/21 22:45 03/01/21 08:07 Hydrochlorothiazide 25 Mg Tab PO 25 mg DAILY [facility] Administration Insulin Aspart 0 unit 03/01/21 07:30 03/01/21 12:31 Insulin Aspart (Novolog) 100 Unit/Ml Vial SQ 5 unit ACHS [facility] Administration Protocol Losartan Potassium 50 mg 02/28/21 22:45 03/01/21 00:11 Losartan 50 Mg Tab PO 50 mg HS [facility] Administration Metoprolol Tartrate 50 mg 02/28/21 22:45 03/01/21 08:06 Metoprolol Tartrate 50 Mg Tab PO 50 mg BID [facility] Administration Naloxone HCl 0.2 mg 02/28/21 21:11 Naloxone 0.4 Mg/Ml 1 Ml Vial IV Q2M PRN Opioid Reversal Non-Formulary Medication 1 puff 03/01/21 08:00 03/01/21 08:07 Fluticasone Furoate [Arnuity Ellipta] INHALATION Not Given RT-DAILY [facility] Intake and Output 02/28/21 03/01/21 03/01/21 22:59 06:59 14:59 Intake Total 106.635 Balance 106.635 Intake: Intake, IV Titration 106.635 Amount Heparin Sod,Pork in 0.45% 106.635 NaCl 25,000 unit In 0.45 % NaCl 1 250ml.bag @ 12 UNITS/KG/HR 9.798 mls/hr IV .Q24H [facility] Rx#: [id number] Other: Voiding Method Toilet Toilet # Voids 1 2 Weight 81.647 kg 81 kg 03/01/21 08:34 03/01/21 08:34
[2021-03-01] MEDS ORDERED: VANCOMYCIN IV PER PHARMACY 1 EACH MISC MISCELLANE PRN (14:34)
[2021-03-01] MEDS: VANCOMYCIN 1,500 MG in SODIUM CHLORIDE 0.9% 250 ML IVPB SCH (16:06)
[2021-03-01 16:49] LABS: Glucose,Whole Blood 255 mg/dL (75-99)
--- NOTE | 2021-03-01 17:08 | P.HPIM ---
History of Present Illness H&P Date: 03/01/21 Nichelle Smith, is a 65-year-old female who presented to [facility] emergency room with a chief complaint of cough and fever She was evaluated in the emergency room vital examination on presentation revealed a temperature of 98.7 pulse 103 respiration 18 blood pressure 132/62 pulse ox 93% on room air Laboratory data revealed a white blood count of 4.6 hemoglobin 13.1 platelet count 153 sodium 135 potassium 4.2 chloride 101 CO2 22 BUN 31 creatinine 0.82 troponin level was elevated at 0.239 coronavirus PCR was positive Testing in the emergency room revealed CT angiogram of the chest was negative for pulmonary embolism, it revealed scattered groundglass opacities bilaterally. Patient was admitted to medical floor for further evaluation and treatment, pulmonary consultation was requested Past medical history is significant for underlying history of hypertension, hyperlipidemia, COPD, [id number] diabetes mellitus, and chronic tobacco use Past Medical History Past Medical History: Asthma, COPD, Diabetes Mellitus, Hyperlipidemia, Hypertension Additional Past Medical History / Comment(s): lower back, neck and headaches History of Any Multi-Drug Resistant Organisms: None Reported Past Surgical History: Orthopedic Surgery, Tonsillectomy, Tubal Ligation Additional Past Surgical History / Comment(s): hemorrhoidectomy. Missing left knee cap secondary to accident in the s. PAIN CLINIC PROCEDURES Past Anesthesia/Blood Transfusion Reactions: No Reported Reaction Past Psychological History: No Psychological Hx Reported Smoking Status: Current every day smoker Past Alcohol Use History: None Reported Additional Past Alcohol Use History / Comment(s): PT stated she smokes 1/2 pack per day. Past Drug Use History: None Reported - Past Family History Mother Family Medical History: Cancer Additional Family Medical History / Comment(s): Mother in her 80s from renal failure secondary to complication from diabetes. Father Family Medical History: Cancer Additional Family Medical History / Comment(s): Father at age 58 from e sophageal cancer Sister(s) Family Medical History: Cancer Additional Family Medical History / Comment(s): Patient has 2 sisters. One from brain cancer and one from lung cancer. Brother(s) Family Medical History: Cancer Additional Family Medical History / Comment(s): Patient has 2 brothers one from combinations of diabetes. One is alive with no major medical problems. Daughter(s) Additional Family Medical History / Comment(s): Patient has 2 sons and 1 daughter with no major medical problems. Medications and Allergies Home Medications Medication Instructions Recorded Confirmed Type Lovastatin [Mevacor] 40 mg PO AC-SUPPER 07/26/16 02/28/21 History metFORMIN HCL [Glucophage] 1,000 mg PO BID 07/26/16 02/28/21 History Cholecalciferol [Vitamin D3 (25 25 mcg PO DAILY 09/25/16 02/28/21 History Mcg = 1000 Iu)] Fluticasone Furoate [Arnuity 1 puff INHALATION RT-DAILY 02/28/21 02/28/21 History Ellipta] Glimepiride [Amaryl] 2 mg PO DAILY 02/28/21 02/28/21 History Losartan [Cozaar] 50 mg PO DAILY 02/28/21 02/28/21 History Metoprolol Tartrate [Lopressor] 50 mg PO BID 02/28/21 02/28/21 History hydroCHLOROthiazide [Hydrodiuril] 25 mg PO DAILY 02/28/21 02/28/21 History Allergies Allergy/AdvReac Type Severity Reaction Status Date / Time aspirin AdvReac Nausea & Verified 02/28/21 19:55 Vomiting Physical Exam Vitals: Vital Signs Temp Pulse Pulse Resp BP BP Pulse Ox 03/01/21 03:52 99.8 F H 77 20 131/62 93 L 03/01/21 02:14 101.7 F H 95 03/01/21 00:34 102.7 F H 100 22 198/72 93 L 02/28/21 23:40 78 18 148/79 96 02/28/21 20:22 95 18 151/55 97 02/28/21 19:22 20 02/28/21 19:00 95 20 149/62 92 L 02/28/21 16:52 98.7 F 103 H 18 132/62 93 L Intake and Output 02/28/21 03/01/21 03/01/21 22:59 06:59 14:59 Other: Voiding Method Toilet # Voids 1 2 Weight 81.647 kg 81 kg In general patient is alert and oriented x 3 in no distress HEENT head normocephalic and atraumatic Neck is supple no JVD no goiter no lymphadenopathy no carotid bruit Chest examination reveals coarse crackles in bilateral lung nguyễn with mild wheezing Cardiac exam reveals regular heart sounds S1 and S2 no gallops no murmurs Abdomen is soft nontender no organomegaly with normal bowel sounds Extremity exam reveals no edema no cyanosis or clubbing Neurological examination reveals no gross focal deficits Results CBC & Chem 7: 03/01/21 08:34 03/01/21 08:34 Labs: Abnormal Lab Results - Last 24 Hours (Table) 02/28/21 02/28/21 02/28/21 Range/Units 17:04 17:04 17:04 Lymphocytes # 0.7 L (1.0-4.8) k/uL Sodium 135 L (137-145) mmol/L BUN 31 H (7-17) mg/dL Glucose 210 H (74-99) mg/dL POC Glucose (mg/dL) (75-99) mg/dL Troponin I 0.152 H* (0.000-0.034) ng/mL Coronavirus (PCR) (Not Detectd) 02/28/21 02/28/21 02/28/21 Range/Units 17:04 21:44 23:50 Lymphocytes # (1.0-4.8) k/uL Sodium (137-145) mmol/L BUN (7-17) mg/dL Glucose (74-99) mg/dL POC Glucose (mg/dL) 196 H (75-99) mg/dL Troponin I 0.239 H* (0.000-0.034) ng/mL Coronavirus (PCR) Detected A (Not Detectd) 03/01/21 03/01/21 Range/Units 02:41 06:02 Lymphocytes # (1.0-4.8) k/uL Sodium (137-145) mmol/L BUN (7-17) mg/dL Glucose (74-99) mg/dL POC Glucose (mg/dL) 249 H (75-99) mg/dL Troponin I 0.201 H* (0.000-0.034) ng/mL Coronavirus (PCR) (Not Detectd) Thrombosis Risk Factor Assmnt - Choose All That Apply Any of the Below Risk Factors Present?: Yes Each Factor Represents 1 point: Abnormal pulmonary function (COPD) Other Risk Factors: Yes Each Risk Factor Represents 2 Points: Age 61-74 years Other congenital or acquired thrombophilia - If yes, enter type in comment: No Thrombosis Risk Factor Assessment Total Risk Factor Score: 3 Thrombosis Risk Factor Assessment Level: Moderate Risk Assessment and Plan Plan: Acute COVID-19 infection Underlying history of diabetes mellitus Underlying history of hypertension Underlying history of hyperlipidemia Underlying history of COPD Chronic tobacco use Patient was admitted to medical floor Home medications reviewed and reordered She was started on IV Decadron and IV rammed severe in the emergency room Subcu Lovenox and insulin sliding scale was added Pulmonary consultation was requested Will follow closely
[2021-03-01 19:51] LABS: Glucose,Whole Blood 178 mg/dL (75-99)
[2021-03-01] MEDS: ENOXAPARIN 60 MG/0.6 ML SYRINGE SQ SCH (19:59)
[2021-03-02] MEDS: VANCOMYCIN 1,500 MG in SODIUM CHLORIDE 0.9% 250 ML IVPB SCH (04:10)
[2021-03-02 06:17] LABS: Glucose,Whole Blood 177 mg/dL (75-99)
[2021-03-02] MEDS: INSULIN ASPART (NovoLOG) 100 UNIT/ML VIAL SQ SCH ×3 (06:17→16:43)
[2021-03-02 08:31] LABS: Basophils % (A) 1 %; Eosinophils % (A) 0 %; HCT 38.5 % (34.0-46.0); HGB 13.1 gm/dL (11.4-16.0); Hyperchromasia Slight; Lymphocytes # (A) 0.9 k/uL (1.0-4.8); Lymphocytes % (A) 13 %; MCH 29.5 pg (25.0-35.0); MCHC 34.1 g/dL (31.0-37.0); MCV 86.6 fL (80.0-100.0); Mean Platelet Volume 8.4; Monocytes # (A) 0.4 k/uL (0-1.0); Monocytes % (A) 6 %; Neutrophils # (A) 5.4 k/uL (1.3-7.7); Neutrophils % (A) 78 %; Platelet Count 185 k/uL (150-450); Poikilocytosis Slight; RBC 4.44 m/uL (3.80-5.40); RDW 14.4 % (11.5-15.5)
[2021-03-02 08:57] LABS: ALT 21 U/L (4-34); AST 35 U/L (14-36); African American GFR (CKD) >90 (>60 ml/min/1.73 sqM); Albumin 3.5 g/dL (3.5-5.0); Alkaline Phosphatase 61 U/L (38-126); Anion Gap 10 mmol/L; Blood Urea Nitrogen 38 mg/dL (7-17); Calcium 8.6 mg/dL (8.4-10.2); Carbon Dioxide 26 mmol/L (22-30); Chloride 103 mmol/L (98-107); Glucose 179 mg/dL (74-99); Non-African American GFR(CKD) 78 (>60 ml/min/1.73 sqM); Potassium 3.9 mmol/L (3.5-5.1); Sodium 139 mmol/L (137-145); Total Bilirubin 0.4 mg/dL (0.2-1.3); Total Protein 6.4 g/dL (6.3-8.2)
[2021-03-02] MEDS: FLUTICASONE FUROATE 100 MCG INHALATION SCH (09:35)
[2021-03-02] MEDS: ENOXAPARIN 60 MG/0.6 ML SYRINGE SQ SCH (09:36)
[2021-03-02] MEDS: METOPROLOL TARTRATE 50 MG TAB PO SCH (09:36)
[2021-03-02] MEDS: hydroCHLOROthiazide 25 MG TAB PO SCH (09:36)
[2021-03-02 10:34] VITALS: RESP 20
--- NOTE | 2021-03-02 10:57 | P.PN ---
Subjective Progress Note Date: 03/02/21 Nichelle Smith, is a 65-year-old female who presented to [facility] emergency room with a chief complaint of cough and fever She was evaluated in the emergency room vital examination on presentation revealed a temperature of 98.7 pulse 103 respiration 18 blood pressure 132/62 pulse ox 93% on room air Laboratory data revealed a white blood count of 4.6 hemoglobin 13.1 platelet count 153 sodium 135 potassium 4.2 chloride 101 CO2 22 BUN 31 creatinine 0.82 troponin level was elevated at 0.239 coronavirus PCR was positive Testing in the emergency room revealed CT angiogram of the chest was negative for pulmonary embolism, it revealed scattered groundglass opacities bilaterally. Patient was admitted to medical floor for further evaluation and treatment, pulmonary consultation was requested Past medical history is significant for underlying history of hypertension, hyperlipidemia, COPD, wqa-rwoorua-bkvrpqtap diabetes mellitus, and chronic tobacco use Objective - Vital Signs Vital signs: Vital Signs Temp 98.4 F 03/02/21 08:00 Pulse 90 03/02/21 08:00 Resp 20 03/02/21 08:00 BP 150/73 03/02/21 08:00 Pulse Ox 92 L 03/02/21 08:00 Intake & Output 03/01/21 03/02/21 03/02/21 18:59 06:59 18:59 Intake Total 106.635 240 Balance 106.635 240 Weight 82.5 kg Intake: Intake, IV Titration 106.635 Amount Heparin Sod,Pork in 0.45% 106.635 NaCl 25,000 unit In 0.45 % NaCl 1 250ml.bag @ 12 UNITS/KG/HR 9.798 mls/hr IV .Q24H [facility] Rx#: [id number] Oral 240 Other: Voiding Method Toilet # Voids 1 1 # Bowel Movements 0 - Exam In general patient is alert and oriented x 3 in no distress HEENT head normocephalic and atraumatic Neck is supple no JVD no goiter no lymphadenopathy no carotid bruit Chest examination reveals coarse crackles in bilateral lung nguyễn with mild wheezing Cardiac exam reveals regular heart sounds S1 and S2 no gallops no murmurs Abdomen is soft nontender no organomegaly with normal bowel sounds Extremity exam reveals no edema no cyanosis or clubbing Neurological examination reveals no gross focal deficits - Labs CBC & Chem 7: 03/02/21 07:26 03/02/21 07:26 Labs: Abnormal Lab Results - Last 24 Hours (Table) 03/01/21 03/01/21 03/01/21 Range/Units 08:34 11:58 16:46 Lymphocytes # 0.5 L (1.0-4.8) k/uL BUN (7-17) mg/dL Glucose (74-99) mg/dL POC Glucose (mg/dL) 194 H 255 H (75-99) mg/dL 03/01/21 03/02/21 03/02/21 Range/Units 19:49 06:07 07:26 Lymphocytes # 0.9 L (1.0-4.8) k/uL BUN (7-17) mg/dL Glucose (74-99) mg/dL POC Glucose (mg/dL) 178 H 177 H (75-99) mg/dL 03/02/21 Range/Units 07:26 Lymphocytes # (1.0-4.8) k/uL BUN 38 H (7-17) mg/dL Glucose 179 H (74-99) mg/dL POC Glucose (mg/dL) (75-99) mg/dL Microbiology - Last 24 Hours (Table) 02/28/21 17:04 Blood Culture Gram Stain - Preliminary Blood Blood Culture - Preliminary Staphylococcus epidermidis 02/28/21 19:34 Blood Culture - Preliminary Blood No Growth after 24 hours 02/28/21 19:10 Blood Culture - Final Blood Assessment and Plan Plan: Acute COVID-19 infection, patient received monoclonal antibody Underlying history of diabetes mellitus, currently maintained on a sliding scale Underlying history of hypertension Underlying history of hyperlipidemia Underlying history of COPD Chronic tobacco use Positive blood culture, patient was started yesterday on IV vancomycin, today culture was finalized as staph epidermidis. Will discontinue IV vancomycin Patient was admitted to medical floor Home medications reviewed and reordered She was started on IV Decadron and IV rammed severe in the emergency room Subcu Lovenox and insulin sliding scale was added Pulmonary consultation was requested Will follow closely
--- NOTE | 2021-03-02 11:15 | P.CONS ---
History of Present Illness - Reason for Consult Consult date: 03/01/21 + Blood cultures and covid Requesting physician: Sumeet Adair - Chief Complaint Shortness of breath and fever x 5 days - History of Present Illness y of Present Illness : Patient is 65-year female presenting to the ER on 02/28/2021 for evaluation of increasing shortness of breath and this patient did have underlying history of asthma COPD and diabetes mellitus the patient symptom has going on for about 5 to 6 days before presentation to the hospital and has been mostly increasing shortness of breath on exertion and even at rest patient also have a cough which has been moderate intensity but mostly dry in nature patient complaining of fever with chills did have a decreased appetite but no vomiting did have some diarrhea patient apparently has been exposed to the sun who did have similar symptoms patient on presentation to the hospital did have a fever of 102.7 F patient was mildly hypoxic with O2 sats of 93 to 91% patient did have a normal white count with lymphopenia creatinine was normal troponins are elevated liver enzymes are normal patient did have positive Covid test she did have blood cultures drawn which came back positive with gram-positi ve cocci that has prompted this infectious disease consultation patient did have a chest x-ray which was negative for acute cardiopulmonary process patient did have a CT angiogram of the chest scattered groundglass opacities bilaterally no pulmonary embolism patient has been evaluated by pulmonary earlier and has been given a monoclonal antibodies Review of system: CONSTITUTIONAL: Positive for weakness fever. EYES: No complaint. ENT: No complaint. RESPIRATORY: As per history of present illness. CARDIOVASCULAR: No complaint. GENITOURINARY: No complaint. GASTROINTESTINAL: No complaint. MUSCULOSKELETAL: No complaint. INTEGUMENTARY : No complaint. PSYCHOLOGIC: No complaint. ENDOCRINE: No complaint. NEUROLOGIC: No complaint. Past medical history : Reviewed, documented below Past surgical history : Reviewed, documented below Social history: Reviewed, documented below Medications: Reviewed, as documented below EXAMINATION: Vital sigans= Reviewed and documented below GENERAL DESCRIPTION: Elderly female up in bed, no distress. No tachypnea or accessory muscle of respiration use. HEENT: Shows Pallor , no scleral icterus. Oral mucous membrane is dry. NECK: Trachea central, no thyromegaly. LUNGS: Unlabored breathing. Decrease intensity of breath sounds. No wheeze or crackle. HEART: S1, S2, regular rate and rhythm. ABDOMEN: Soft, no tenderness , guarding or rigidity EXTREMITIES: No edema feet SKIN: No rash, no masses palpable. NEUROLOGICAL: The patient is awake, alert, oriented x3, mood and affect normal. LABS AND RADIOLOGY: Reviewed results see below Assessment : 1-Patient presented to hospital with fever increasing shortness of breath and cough in this patient who did have a mild hypoxemia and evidence of infiltrate on the CT angiogram suspicious for COVID-19 infection more likely mild illness and has received monoclonal antibodies 2-positive blood culture with gram-positive cocci possible staph epi and skin contaminant clinic not behaving as gram-positive pneumonia Plan: 1-agree with vancomycin for now however will be discontinued if finalized as coagulase-negative staph 2-patient to continue with a heparin we will add zinc and ascorbic acid 3-droplet isolation and respiratory support We will follow on clinical condition and cultures to further adjust medication if needed Thank you for this consultation we will follow the patient along with you Past Medical History Past Medical History: Asthma, COPD, Diabetes Mellitus, Hyperlipidemia, Hypertension Additional Past Medical History / Comment(s): lower back, neck and headaches History of Any Multi-Drug Resistant Organisms: None Reported Past Surgical History: Orthopedic Surgery, Tonsillectomy, Tubal Ligation Additional Past Surgical History / Comment(s): hemorrhoidectomy. Missing left knee cap secondary to accident in the 1970's. PAIN CLINIC PROCEDURES Past Anesthesia/Blood Transfusion Reactions: No Reported Reaction Past Psychological History: No Psychological Hx Reported Smoking Status: Current every day smoker Past Alcohol Use History: None Reported Past Drug Use History: None Reported - Past Family History Mother Family Medical History: Cancer Additional Family Medical History / Comment(s): Mother in her 80s from renal failure secondary to complication from diabetes. Father Family Medical History: Cancer Additional Family Medical History / Comment(s): Father at age 58 from esophageal cancer Sister(s) Family Medical History: Cancer Additional Family Medical History / Comment(s): Patient has 2 sisters. One from brain cancer and one from lung cancer. Brother(s) Family Medical History: Cancer Additional Family Medical History / Comment(s): Patient has 2 brothers one from combinations of diabetes. One is alive with no major medical problems. Daughter(s) Additional Family Medical History / Comment(s): Patient has 2 sons and 1 daughter with no major medical problems. Medications and Allergies Home Medications Medication Instructions Recorded Confirmed Type Lovastatin [Mevacor] 40 mg PO AC-SUPPER 07/26/16 02/28/21 History metFORMIN HCL [Glucophage] 1,000 mg PO BID 07/26/16 02/28/21 History Cholecalciferol [Vitamin D3 (25 25 mcg PO DAILY 09/25/16 02/28/21 History Mcg = 1000 Iu)] Fluticasone Furoate [Arnuity 1 puff INHALATION RT-DAILY 02/28/21 02/28/21 History Ellipta] Glimepiride [Amaryl] 2 mg PO DAILY 02/28/21 02/28/21 History Losartan [Cozaar] 50 mg PO DAILY 02/28/21 02/28/21 History Metoprolol Tartrate [Lopressor] 50 mg PO BID 02/28/21 02/28/21 History hydroCHLOROthiazide [Hydrodiuril] 25 mg PO DAILY 02/28/21 02/28/21 History Allergies Allergy/AdvReac Type Severity Reaction Status Date / Time aspirin AdvReac Nausea & Verified 02/28/21 19:55 Vomiting Physical Exam Vitals: Vital Signs Temp Pulse Pulse Resp BP BP Pulse Ox 03/01/21 15:15 97 F L 80 20 135/72 90 L 03/01/21 12:30 99.5 F 64 22 141/62 91 L 03/01/21 08:00 99.5 F 68 18 130/65 90 L 03/01/21 03:52 99.8 F H 77 20 131/62 93 L 03/01/21 02:14 101.7 F H 95 03/01/21 00:34 102.7 F H 100 22 198/72 93 L 02/28/21 23:40 78 18 148/79 96 02/28/21 20:22 95 18 151/55 97 02/28/21 19:22 20 02/28/21 19:00 95 20 149/62 92 L 02/28/21 16:52 98.7 F 103 H 18 132/62 93 L Intake and Output 03/01/21 03/01/21 03/01/21 06:59 14:59 22:59 Intake Total 106.635 Balance 106.635 Intake: Intake, IV Titration 106.635 Amount Heparin Sod,Pork in 0.45% 106.635 NaCl 25,000 unit In 0.45 % NaCl 1 250ml.bag @ 12 UNITS/KG/HR 9.798 mls/hr IV .Q24H [facility] Rx#: [id number] Other: Voiding Method Toilet Toilet # Voids 2 1 Weight 81 kg Results CBC & Chem 7: 03/02/21 07:26 03/02/21 07:26 Labs: Abnormal Lab Results - Last 24 Hours (Table) 02/28/21 02/28/21 02/28/21 Range/Units 17:04 17:04 17:04 WBC (3.8-10.6) k/uL Lymphocytes # 0.7 L (1.0-4.8) k/uL APTT (22.0-30.0) sec Sodium 135 L (137-145) mmol/L BUN 31 H (7-17) mg/dL Glucose 210 H (74-99) mg/dL POC Glucose (mg/dL) (75-99) mg/dL Troponin I 0.152 H* (0.000-0.034) ng/mL Coronavirus (PCR) (Not Detectd) 02/28/21 02/28/21 02/28/21 Range/Units 17:04 21:44 23:50 WBC (3.8-10.6) k/uL Lymphocytes # (1.0-4.8) k/uL APTT (22.0-30.0) sec Sodium (137-145) mmol/L BUN (7-17) mg/dL Glucose (74-99) mg/dL POC Glucose (mg/dL) 196 H (75-99) mg/dL Troponin I 0.239 H* (0.000-0.034) ng/mL Coronavirus (PCR) Detected A (Not Detectd) 03/01/21 03/01/21 03/01/21 Range/Units 02:41 06:02 08:34 WBC 2.6 L (3.8-10.6) k/uL Lymphocytes # 0.5 L (1.0-4.8) k/uL APTT (22.0-30.0) sec Sodium (137-145) mmol/L BUN (7-17) mg/dL Glucose (74-99) mg/dL POC Glucose (mg/dL) 249 H (75-99) mg/dL Troponin I 0.201 H* (0.000-0.034) ng/mL Coronavirus (PCR) (Not Detectd) 03/01/21 03/01/21 03/01/21 Range/Units 08:34 08:34 11:58 WBC (3.8-10.6) k/uL Lymphocytes # (1.0-4.8) k/uL APTT 43.0 H (22.0-30.0) sec Sodium (137-145) mmol/L BUN 32 H (7-17) mg/dL Glucose 216 H (74-99) mg/dL POC Glucose (mg/dL) 194 H (75-99) mg/dL Troponin I (0.000-0.034) ng/mL Coronavirus (PCR) (Not Detectd) Microbiology - Last 24 Hours (Table) 02/28/21 17:04 Blood Culture Gram Stain - Preliminary Blood 02/28/21 19:10 Blood Culture - Final Blood
[2021-03-02 11:58] LABS: Glucose,Whole Blood 210 mg/dL (75-99)
--- NOTE | 2021-03-02 13:00 | P.PN ---
Subjective Progress Note Date: 03/02/21 CHIEF COMPLAINT: Abnormal troponins HISTORY OF PRESENT ILLNESS: This is a 65-year-old female with a past medical history significant for diabetes, hypertension, hyperlipidemia, COPD, and nicotine dependence. Patient does not follow with a construction safety consultant. We have been asked to see the patient in consultation for abnormal troponins. Patient initially presented to the hospital secondary to shortness of breath. Patient was found to be positive for Covid. Per nursing, the patient has no complaints of chest pain or pressure. DIAGNOSTICS: EKG reveals sinus mechanism with left anterior fascicular block Chest xray no acute cardiopulmonary process Laboratory data: WBC 2.6. Hemoglobin 12.8. Platelet count 169. Sodium 137. Potassium 4.4. BUN 32. Creatinine 0.80. Troponin 0.152. 0.239. 0.201. Current home cardiac medications include hydrochlorothiazide 25 mg daily, metoprolol tartrate 50 g twice a day, losartan 50 mg daily 03/02/2021 Pulmonary echocardiogram reveals ejection fraction 60-65% with no LV wall motion abnormalities. Patient's vital signs are stable. Blood pressure 150/73. Heart rate in the 90s. She is on room air with oxygen saturations greater than 90%. PHYSICAL EXAM: Thorough physical exam not completed secondary to limited evaluation/examination due to Covid19 ASSESSMENT: Acute Covid 19 Abnormal troponins, suspect secondary to above Hypertension Hyperlipidemia COPD Diabetes Nicotine dependence PLAN: No further inpatient recommendations from a cardiac standpoint. We will sign off. Please reconsult if needed. Nurse practitioner note has been reviewed by physician. Signing provider agrees with the documented findings, assessment, and plan of care. Objective - Vital Signs Vital signs: Vital Signs Temp 98.4 F 03/02/21 08:00 Pulse 90 03/02/21 08:00 Resp 20 03/02/21 08:00 BP 150/73 03/02/21 08:00 Pulse Ox 92 L 03/02/21 08:00 Intake & Output 03/01/21 03/02/21 03/02/21 18:59 06:59 18:59 Intake Total 106.635 240 Balance 106.635 240 Weight 82.5 kg Intake: Intake, IV Titration 106.635 Amount Heparin Sod,Pork in 0.45% 106.635 NaCl 25,000 unit In 0.45 % NaCl 1 250ml.bag @ 12 UNITS/KG/HR 9.798 mls/hr IV .Q24H [facility] Rx#: [id number] Oral 240 Other: Voiding Method Toilet # Voids 1 1 # Bowel Movements 0 - Labs CBC & Chem 7: 03/02/21 07:26 03/02/21 07:26 Labs: Abnormal Lab Results - Last 24 Hours (Table) 03/01/21 03/01/21 03/01/21 Range/Units 08:34 16:46 19:49 Lymphocytes # 0.5 L (1.0-4.8) k/uL BUN (7-17) mg/dL Glucose (74-99) mg/dL POC Glucose (mg/dL) 255 H 178 H (75-99) mg/dL 03/02/21 03/02/21 03/02/21 Range/Units 06:07 07:26 07:26 Lymphocytes # 0.9 L (1.0-4.8) k/uL BUN 38 H (7-17) mg/dL Glucose 179 H (74-99) mg/dL POC Glucose (mg/dL) 177 H (75-99) mg/dL 03/02/21 Range/Units 11:55 Lymphocytes # (1.0-4.8) k/uL BUN (7-17) mg/dL Glucose (74-99) mg/dL POC Glucose (mg/dL) 210 H (75-99) mg/dL Microbiology - Last 24 Hours (Table) 02/28/21 17:04 Blood Culture Gram Stain - Preliminary Blood Blood Culture - Preliminary Staphylococcus epidermidis 02/28/21 19:34 Blood Culture - Preliminary Blood No Growth after 24 hours 02/28/21 19:10 Blood Culture - Final Blood
--- NOTE | 2021-03-02 13:58 | P.PN ---
Subjective Progress Note Date: 03/02/21 Principal diagnosis: COVID-19 infection This is a pleasant 65-year-old female patient who follows with Dr. Adair as her primary care provider. She has a history of diabetes mellitus, hyperlipidemia, hypertension, COPD with chronic and ongoing tobacco dependence. She presented to the emergency room yesterday with complaints of increasing shortness of breath over the past 5-6 days prior. She has had fever, chills, poor appetite. Poor oral intake. Chest x-ray reveals no acute cardiopulmonary process. CT angiogram ruled out pulmonary embolus. There was noted scattered groundglass opacities bilaterally and in the lingula. COVID-19 screen is positive. White count 2.6. Hemoglobin 12.8. Lymphocytes 0.5. Sodium 137. Potassium 4.4. Creatinine 0.80. Troponin 0.239, 0.201. ProBNP 144. She is seen today in consultation on the selective care unit. She is currently sitting up in bed. Awake and alert in no acute distress. No chest pain, no worsening shortness of breath cough or congestion. Maintaining O2 saturations in the 90s on room air. She did have a T-max of 102.7. Currently 99.5. She was given a REM deficit in the ER yesterday. Continued on Decadron, heparin drip. On 03/02/2021, patient seen in follow-up on selective care unit, she is awake, in no acute distress, she remains on room air, with pulse ox of 92-93%, afebrile, hemodynamics stable, she does get short of breath with exertion, but at rest appears to be in no respiratory distress, yesterday she received a dose of Casirivimab/Imdevimab (Regeneron). She will also receive a dose of Remdesivir in the emergency department, Decadron has been discontinued, she is on 0.9 normal saline at a rate of 50 ML per hour. She's had no acute events overnight. Her heparin infusion has been discontinued and patient was started on Lovenox 80 mg every [address] chest was negative for pulmonary embolism. It did show scattered groundglass opacities bilaterally in the lingular that cou ld be related to infectious/inflammatory etiology on the background emphysematous changes. There were by hilar and mediastinal enlarged lymph nodes likely reactive in etiology. No nausea vomiting or diarrhea, patient was seen by cardiology in regards to elevated troponins, echocardiogram has been ordered, showing ejection fraction of 60-65%, no LV wall motion abnormalities. No complaints of chest pain. Objective - Vital Signs Vital signs: Vital Signs Temp 98.4 F 03/02/21 08:00 Pulse 90 03/02/21 08:00 Resp 20 03/02/21 08:00 BP 150/73 03/02/21 08:00 Pulse Ox 92 L 03/02/21 08:00 Intake & Output 03/01/21 03/02/21 03/02/21 18:59 06:59 18:59 Intake Total 106.635 240 Balance 106.635 240 Weight 82.5 kg Intake: Intake, IV Titration 106.635 Amount Heparin Sod,Pork in 0.45% 106.635 NaCl 25,000 unit In 0.45 % NaCl 1 250ml.bag @ 12 UNITS/KG/HR 9.798 mls/hr IV .Q24H [facility] Rx#: [id number] Oral 240 Other: Voiding Method Toilet # Voids 1 1 # Bowel Movements 0 - Exam GENERAL EXAM: Alert, very pleasant, 65-year-old white female, on room air with a pulse ox of 92-93% comfortable in no apparent distress. HEAD: Normocephalic/atraumatic. EYES: Normal reaction of pupils, equal size. Conjunctiva pink, sclera white. NOSE: Clear with pink turbinates. THROAT: No erythema or exudates. NECK: No masses, no JVD, no thyroid enlargement, no adenopathy. CHEST: No chest wall deformity. Symmetrical expansion. LUNGS: Equal air entry with bibasilar crackles CVS: Regular rate and rhythm, normal S1 and S2, no gallops, no murmurs, no rubs ABDOMEN: Soft, nontender. No hepatosplenomegaly, normal bowel sounds, no guarding or rigidity. EXTREMITIES: No clubbing, no edema, no cyanosis, 2+ pulses and upper and lower extremities. MUSCULOSKELETAL: Muscle strength and tone normal. SPINE: No scoliosis or deformity SKIN: No rashes CENTRAL NERVOUS SYSTEM: Alert and oriented -3. No focal deficits, tone is normal in all 4 extremities. PSYCHIATRIC: Alert and oriented -3. Appropriate affect. Intact judgment and insight. - Labs CBC & Chem 7: 03/02/21 07:26 10/06/21 07:26 Labs: Abnormal Lab Results - Last 24 Hours (Table) 03/01/21 03/01/21 03/02/21 Range/Units 16:46 19:49 06:07 Lymphocytes # (1.0-4.8) k/uL BUN (7-17) mg/dL Glucose (74-99) mg/dL POC Glucose (mg/dL) 255 H 178 H 177 H (75-99) mg/dL 03/02/21 03/02/21 03/02/21 Range/Units 07:26 07:26 11:55 Lymphocytes # 0.9 L (1.0-4.8) k/uL BUN 38 H (7-17) mg/dL Glucose 179 H (74-99) mg/dL POC Glucose (mg/dL) 210 H (75-99) mg/dL Microbiology - Last 24 Hours (Table) 02/28/21 17:04 Blood Culture Gram Stain - Preliminary Blood Blood Culture - Preliminary Staphylococcus epidermidis 02/28/21 19:34 Blood Culture - Preliminary Blood No Growth after 24 hours 02/28/21 19:10 Blood Culture - Final Blood Assessment and Plan Plan: Assessment: #1. Acute COVID-19 pneumonia, with minimal pulmonary complaints, patient is maintaining stable O2 saturations on room air. Patient is not vaccinated, she did not meet requirements for Remdesivir although she did receive a loading dose of 200 mg of Remdesivir in the emergency department on presentation. Patient is status post infusion of Casirivimab/Imdevimab (Regeneron) on 03/02/2021 #2. Elevated troponins, cardiology is following, echocardiogram did not show significant abnormalities, and showed preserved LV function with EF of 60-65% #3. No evidence of pulmonary embolism on the CT chest, and patient can be switched to prophylactic dose Lovenox #4. Current every day smoker #5. Chronic bronchial asthma, unspecified, possibly COPD #6. Hypertension #7. Hyperlipidemia #8. Diabetes mellitus type 2 #9. Chronic pain syndrome Plan: Patient has maintained stable O2 saturations on room air She has received an infusion of Casirivimab/Imdevimab (Regeneron) on 03/02/2021 She remains clinically stable Increase activity as tolerated She came to consider for discharge home from pulmonary perspective If she has been cleared by cardiology No evidence of pulmonary embolism on the CTA chest Acute cutback to Lovenox to 40 mg daily Daily d-dimer I performed a history & physical examination of the patient and discussed their management with my nurse practitioner, Marry Cheek. I reviewed the nurse practitioner's note and agree with the documented findings and plan of care. Lung sounds are positive for diminished breath sounds throughout the lung nguyễn. The findings and the impression was discussed with the patient. I attest to the documentation by the nurse practitioner. Time with Patient: Less than 30
[2021-03-02 16:22] LABS: Glucose,Whole Blood 218 mg/dL (75-99)
--- NOTE | 2021-03-02 17:08 | P.DS ---
Providers Date of admission: 02/28/21 21:11 Expected date of discharge: 03/02/21 Attending physician: Sumeet Adair Consults: 02/28/21 21:13 Consult Physician Urgent Consulting Provider: Jill Velasquez Consult Reason/Comments: acute covid infection Do you want consulting provider notified?: Yes 03/01/21 14:35 Consult Physician Routine Consulting Provider: Amber Thorpe Consult Reason/Comments: Covid-19 positive blood culture Do you want consulting provider notified?: Yes Primary care physician: Sumeet Adair [facility] Course: Diagnosis on discharge: Acute COVID-19 infection, patient received monoclonal antibody Underlying history of diabetes mellitus, currently maintained on a sliding scale Underlying history of hypertension Underlying history of hyperlipidemia Underlying history of COPD Chronic tobacco use Positive blood culture, patient was started yesterday on IV vancomycin, today culture was finalized as staph epidermidis. Will discontinue IV vancomycin Hospital course: Nichelle Smith, is a 65-year-old female who presented to [facility] emergency room with a chief complaint of cough and fever She was evaluated in the emergency room vital examination on presentation revealed a temperature of 98.7 pulse 103 respiration 18 blood pressure 132/62 pulse ox 93% on room air Laboratory data revealed a white blood count of 4.6 hemoglobin 13.1 platelet count 153 sodium 135 potassium 4.2 chloride 101 CO2 22 BUN 31 creatinine 0.82 troponin level was elevated at 0.239 coronavirus PCR was positive Testing in the emergency room revealed CT angiogram of the chest was negative for pulmonary embolism, it revealed scattered groundglass opacities bilaterally. Patient was admitted to medical floor for further evaluation and treatment, pulmonary consultation was requested Past medical history is significant for underlying history of hypertension, hyperlipidemia, COPD, [id number] diabetes mellitus, and chronic tobacco use On 03/02/2021 patient was seen and examined on the telemetry floor she is alert and oriented 3 in no apparent distress she is still complaining of cough she is still complaining of shortness of breath with any activity otherwise she denies any complaints there is no fever or chills, there is no chest pain, and there is no shortness of breath at rest, patient was evaluated by cardiology and by pulmonary and was cleared for discharge, she received monoclonal antibody on presentation, she was started on IV M does of ear and IV Decadron in the e mergency room however, pulmonary advised that there is no need for Decadron or REM does of fever and dose were discontinued, patient was also started on subcu Lovenox, full therapeutic dose, computed tomography scan angiogram of the chest was negative for pulmonary embolism, patient was reevaluated by pulmonary on 03/02/2021 and was cleared for discharge. Patient was counseled in length not to smoke, she was given a prescription for NicoDerm patches. Patient has multiple risk factors for COVID-19 morbidity, including smoking, underlying history of COPD, underlying history of diabetes mellitus, underlying history of morbid obesity, she was counseled in length to return to emergency room if her shortness of breath is worsening. Patient Condition at Discharge: Stable Plan - Discharge Summary Discharge Rx Participant: No New Discharge Prescriptions: New Nicotine 14Mg/24Hr Patch [Habitrol] 1 patch TRANSDERM DAILY 30 Days #30 patch Continue Lovastatin [Mevacor] 40 mg PO AC-SUPPER metFORMIN HCL [Glucophage] 1,000 mg PO BID Cholecalciferol [Vitamin D3 (25 Mcg = 1000 Iu)] 25 mcg PO DAILY Glimepiride [Amaryl] 2 mg PO DAILY Metoprolol Tartrate [Lopressor] 50 mg PO BID Losartan [Cozaar] 50 mg PO DAILY Fluticasone Furoate [Arnuity Ellipta] 1 puff INHALATION RT-DAILY hydroCHLOROthiazide [Hydrodiuril] 25 mg PO DAILY Discharge Medication List Lovastatin [Mevacor] 40 mg PO AC-SUPPER 07/26/16 [History] metFORMIN HCL [Glucophage] 1,000 mg PO BID 07/26/16 [History] Cholecalciferol [Vitamin D3 (25 Mcg = 1000 Iu)] 25 mcg PO DAILY 09/25/16 [History] Fluticasone Furoate [Arnuity Ellipta] 1 puff INHALATION RT-DAILY 02/28/21 [Hi story] Glimepiride [Amaryl] 2 mg PO DAILY 02/28/21 [History] Losartan [Cozaar] 50 mg PO DAILY 02/28/21 [History] Metoprolol Tartrate [Lopressor] 50 mg PO BID 02/28/21 [History] hydroCHLOROthiazide [Hydrodiuril] 25 mg PO DAILY 02/28/21 [History] Nicotine 14Mg/24Hr Patch [Habitrol] 1 patch TRANSDERM DAILY 30 Days #30 patch 03/02/21 [Rx] Follow up Appointment(s)/Referral(s): Sumeet Adair MD [Primary Care Provider] - 1-2 days
[2021-03-02 17:17] VITALS: BP 136/61; PULSE 83; TEMP 98.6
[2021-03-02] MEDS ORDERED: ENOXAPARIN 80 MG/0.8 ML SYRINGE SQ SCH (21:00)
--- NOTE | 2021-03-03 12:43 | ECHOF ---
Referral Reason:LV function, abnormal trops, COVID + MEASUREMENTS -------- HEIGHT: 165.1 cm WEIGHT: 80.7 kg BP: 130/65 RVIDd: 2.7 cm (< 3.3) IVSd: 1.1 cm (0.6 - 1.1) LVIDd: 4.7 cm (3.9 - 5.3) LVPWd: 1.1 cm (0.6 - 1.1) IVSs: 1.6 cm LVIDs: 3.5 cm LVPWs: 1.6 cm LA Diam: 3.7 cm (2.7 - 3.8) Ao Diam: 2.8 cm (2.0 - 3.7) AV Cusp: 2.0 cm (1.5 - 2.6) MV EXCURSION: 13.536 mm (> 18.000) MV EF SLOPE: 60 mm/s (70 - 150) EPSS: 1.2 cm MV E Chidi: 0.99 m/s MV DecT: 209 ms MV A Chidi: 0.85 m/s MV E/A Ratio: 1.16 FINDINGS -------- Sinus rhythm. This was a technically difficult study with suboptimal views. The left ventricular size is normal. There is borderline concentric left ventricular hypertrophy. Overall left ventricular systolic function is normal with, an EF between 60 - 65 %. The right ventricle is normal in size. The left atrium is normal in size. The right atrium is normal in size. 5 ml of Lumason was utilized for enhancement of images. Interatrial and interventricular septum intact. The aortic valve is trileaflet, and appears structurally normal. No aortic stenosis or regurgitation. Mild mitral annular calcification present. The tricuspid valve appears structurally normal. Unable to estimate RVSP due to inadequate TR jet s pectral doppler profile. There is no pulmonic regurgitation present. The aortic root size is normal. IVC Not well visulized. There is no pericardial effusion. CONCLUSIONS -------- 1. The left ventricular size is normal. 2. There is borderline concentric left ventricular hypertrophy. 3. Overall left ventricular systolic function is normal with, an EF between 60 - 65 %. 4. 5 ml of Lumason was utilized for enhancement of images. 5. The aortic valve is trileaflet, and appears structurally normal. No aortic stenosis or regurgitati on. 6. Mild mitral annular calcification present. 7. There is no pericardial effusion. VOICE ENGINEER: Azalia Morris RDCS
== END 2021-03-02 17:51 | disposition home or self-care (01) | DRG 177 ==
LOC: EC 14:44 → 3SCARD 21:11 → INTOOBSV 21:11 → OBSVTOIN 21:11 → 3SCARD 21:48
PROVIDERS: ADMIT Internal Medicine; ATTEND Internal Medicine
PROC: XW033H6 Introduction of Other New Technology Monoclonal Antibody into Peripheral Vein, Percutaneous Approach, New Technology Group 6 (ICD-10-PCS; principal; 2021-02-28)
DX: U07.1 COVID-19 (principal); J12.82 Pneumonia due to coronavirus disease 2019; I21.4 Non-ST elevation (NSTEMI) myocardial infarction; J44.0 Chronic obstructive pulmonary disease with (acute) lower respiratory infection; E11.9 Type 2 diabetes mellitus without complications; I10 Essential (primary) hypertension; R74.01 Elevation of levels of liver transaminase levels; R53.1 Weakness; R51.9 Headache, unspecified; E78.5 Hyperlipidemia, unspecified; F17.210 Nicotine dependence, cigarettes, uncomplicated; R59.1 Generalized enlarged lymph nodes; B95.7 Other staphylococcus as the cause of diseases classified elsewhere; G89.4 Chronic pain syndrome; I44.4 Left anterior fascicular block; R09.02 Hypoxemia; Z79.84 Long term (current) use of oral hypoglycemic drugs; Z79.899 Other long term (current) drug therapy; Z71.6 Tobacco abuse counseling; Z98.51 Tubal ligation status; Z87.19 Personal history of other diseases of the digestive system
CPT/HCPCS: 36415; 71046; 71275; 80048; 80053; 83605; 83880; 84484; 85025; 85610; 85730; 87040; 87635; 93005; 93306; 99291

== ENCOUNTER → 2021-04-07 | Outpatient (CLI) | payer MEDICARE, OTHER ==
--- NOTE | 2021-04-07 12:35 | XR ---
EXAMINATION TYPE: XR chest 2V DATE OF EXAM: 04/07/2021 COMPARISON: 02/28/2021 INDICATION: History of Covid TECHNIQUE: Frontal and lateral views of the chest are obtained. FINDINGS: The heart size is normal. The pulmonary vasculature is normal. Consolidations of the left costophrenic angle. Some mild left mid lung infiltrate may be present.. IMPRESSION: 1. Left mid and costophrenic angle consolidations. Continued follow-up is recommended.
== END | disposition home or self-care (01) ==
LOC: RADXRMAIN 11:54
PROVIDERS: ATTEND Internal Medicine
DX: U07.1 COVID-19 (principal)
CPT/HCPCS: 71046

== ENCOUNTER → 2021-10-06 | Outpatient (CLI) | payer MEDICARE, OTHER ==
--- NOTE | 2021-10-06 13:43 | MM ---
Reason for exam: additional evaluation requested from abnormal screening. Last mammogram was performed less than 1 month ago. History: Patient is postmenopausal. Physical Findings: A clinical breast exam by your physician is recommended on an annual basis and results should be correlated with mammographic findings. MG Work Up Mamm w CAD LT Spot compression CC, spot compression MLO, spot compression LM, and LM view(s) were taken of the left breast. Prior study comparison: September 29, 2021, bilateral MG screening mammo w CAD. April 02, 2020, right breast MG work up mamm w CAD RT. March 18, 2020, bilateral MG screening mammo w CAD. August 09, 2018, bilateral MG screening mammo w CAD. The breast tissue is heterogeneously dense. This may lower the sensitivity of mammography. There is chronic nodularity in the left breast. A 1.7cm partially obscured isodense nodule becomes more defined on spot views. The questioned posterior upper outer quadrant focal asymmetry becomes less defined. Inferior LM nodular density does not persist on spot view. Results were given to the patient verbally at the time of the exam. ASSESSMENT: Incomplete: need additional imaging evaluation, BI-RAD 0 RECOMMENDATION: Ultrasound of the left breast. (upper outer quadrant)
--- NOTE | 2021-10-06 13:46 | USB ---
Reason for exam: additional evaluation requested from abnormal screening. History: Patient is postmenopausal. Physical Findings: A clinical breast exam by your physician is recommended on an annual basis and results should be correlated with mammographic findings. US Breast Workup LT Technologist: Loreto Jacob RT (R)(M) Left complete breast ultrasound includes all four quadrants, the retroareolar region and axilla. Finding demonstrates a 1.3 x 0.8 x 1.3cm lobular solid mass at 1 o'clock, 5cm from nipple, fibroadenoma versus other mass and a 0.4 x 0.3 x 0.3cm irregular hypoechoic mass at 2 o'clock, 3cm from nipple, suspicious. Results were given to the patient verbally at the time of the exam. ASSESSMENT: Suspicious, BI-RAD 4 RECOMMENDATION: Ultrasound core biopsy of the left breast. (x 2 sites) Called office with mammographic findings and has scheduled an appointment for the patient for 10/20/21 at 2:[address] Adair. Biopsy scheduled for 10/13/21 at 1:00. PRELIMINARY REPORT CALLED AND FAXED TO DR. ADAIR ON 10/06/21.
== END | disposition home or self-care (01) ==
LOC: RADMAMWWP 09:47
PROVIDERS: ATTEND Internal Medicine
DX: R92.8 Other abnormal and inconclusive findings on diagnostic imaging of breast (principal); N63.20 Unspecified lump in the left breast, unspecified quadrant; Z78.0 Asymptomatic menopausal state
CPT/HCPCS: 77065

== ENCOUNTER → 2021-10-31 | Outpatient (CLI) | payer MEDICARE, OTHER ==
[2021-10-31 11:59] VITALS: BP 179/72; PULSE 90; RESP 18; TEMP 98.8
--- NOTE | 2021-10-31 12:33 | P.GSHP ---
History of Present Illness H&P Date: 10/31/21 Chief Complaint: Invasive lobular carcinoma multifocal left breast Nichelle is a 66-year-old white female status post bilateral mammogram performed on 5521. This subsequently led to an ultrasound of the left breast which revealed 2 lesions one at the 1 o'clock position which was 1.3 cm in size and a 0.4 cm lesion at the 2 o'clock position. Both underwent ultrasound-guided core biopsy on . Pathology of both sites revealed invasive lobular carcinoma. This was ER/DC positive HER-2/ranjeet negative and grade 1. The patient did not feel anything of concern in either breast. She did not complain of any nipple discharge or skin changes. She never had any breast biopsies or surgery on her breast in the past. CAffiene: 3 cups/day nicotine: since [age] PPD chocolate: occasional hormones: none BCP: 3 years in the remote past Family History: mother: colon cancer father: Esophageal cancer sister: Brain cancer sister: lung cancer Hormonal history: Menarche:10 , breast fed: no; first born at 15 menopause: 38 BCP: 3 years hormones: none Surgical history: tubaligation left knee surgery left clavicle mass vagina Medical History: diabetes since 38 HTN high cholesterol COPD/ worse after COVID artheritis asthma Social History: nicotine: 1/2 PPD alcohol: none drugs: none - Constitutional Constitutional: Denies chills, Denies fever - EENT Eyes: denies blurred vision, denies pain Ears: deny: decreased hearing, tinnitus Ears, nose, mouth and throat: Reports headache, Denies sore throat - Breasts Breasts: bilateral: as per HPI - Cardiovascular Cardiovascular: Reports shortness of breath, Denies chest pain - Respiratory Respiratory: Reports cough - Gastrointestinal Gastrointestinal: Denies abdominal pain, Denies diarrhea, Denies nausea, Denies vomiting - Genitourinary (Female) Comment: UTI - Menstruation Menstruation: Reports postmenopausal - Musculoskeletal Musculoskeletal: Reports as per HPI - Integumentary Integumentary: Denies pruritus, Denies rash - Neurological Neurological: Reports paresthesias, Denies numbness, Denies weakness - Psychiatric Psychiatric: Denies anxiety, Denies depression - Endocrine Comment: diabetes - Hematologic/Lymphatic Comment: bruises easy - Allergic/Immunologic Allergic/Immunologic: Reports as per HPI, Reports seasonal allergies Past Medical History Past Medical History: Asthma, COPD, Diabetes Mellitus, Hyperlipidemia, Hypertension, Osteoarthritis (OA) Additional Past Medical History / Comment(s): lower back, neck and headaches History of Any Multi-Drug Resistant Organisms: None Reported Past Surgical History: Orthopedic Surgery, Tonsillectomy, Tubal Ligation Additional Past Surgical History / Comment(s): hemorrhoidectomy. Missing left knee cap secondary to accident in the s. PAIN CLINIC PROCEDURES Past Anesthesia/Blood Transfusion Reactions: No Reported Reaction Past Psychological History: No Psychological Hx Reported Additional Psychological History / Comment(s): Pt resides in her own suite but connected to where her son, cheri-in-law and granddaughter live. She is independent. She works at [employer]. She drives. Smoking Status: Current every day smoker Past Alcohol Use History: None Reported Additional Past Alcohol Use History / Comment(s): PT stated she smokes 1/2 pack per day. Past Drug Use History: None Reported - Past Family History Mother Family Medical History: Cancer Additional Family Medical History / Comment(s): Mother in her 80s from renal failure secondary to complication from diabetes. Father Family Medical History: Cancer Additional Family Medical History / Comment(s): Father at age 58 from esophageal cancer Sister(s) Family Medical History: Cancer Additional Family Medical History / Comment(s): Patient has 2 sisters. One from brain cancer and one from lung cancer. Brother(s) Family Medical History: Cancer Additional Family Medical History / Comment(s): Patient has 2 brothers one from combinations of diabetes. One is alive with no major medical problems. Daughter(s) Additional Family Medical History / Comment(s): Patient has 2 sons and 1 daughter with no major medical problems. Medications and Allergies Home Medications Medication Instructions Recorded Confirmed Type Lovastatin [Mevacor] 40 mg PO AC-SUPPER 07/26/16 10/31/21 History metFORMIN HCL [Glucophage] 1,000 mg PO BID 07/26/16 10/31/21 History Cholecalciferol [Vitamin D3 (25 25 mcg PO DAILY 09/25/16 10/31/21 History Mcg = 1000 Iu)] Fluticasone Furoate [Arnuity 1 puff INHALATION RT-DAILY 02/28/21 10/31/21 History Ellipta] Losartan [Cozaar] 50 mg PO DAILY 02/28/21 10/31/21 History Metoprolol Tartrate [Lopressor] 50 mg PO BID 02/28/21 10/31/21 History hydroCHLOROthiazide [Hydrodiuril] 25 mg PO DAILY 02/28/21 10/31/21 History Allergies Allergy/AdvReac Type Severity Reaction Status Date / Time nickel Allergy Rash/Hives Unverified 10/31/21 11:59 aspirin AdvReac Nausea & Verified 10/31/21 11:42 Vomiting Surgical - Exam Vital Signs Temp Pulse Resp BP Pulse Ox 98.8 F 90 18 179/72 94 L 10/31/21 11:43 10/31/21 11:43 10/31/21 11:43 10/31/21 11:43 10/31/21 11:43 BMI: 28.3 - General well developed, well nourished, no distress - Eyes normal ocular movement - ENT no hearing loss - Neck trachea midline - Respiratory normal respiratory effort, clear to auscultation - Cardiovascular Rhythm: regular Heart Sounds: normal: S1, S2 - Abdomen Abdomen: soft, non tender, no guarding, no rigid, no rebound - Integumentary normal turgor - Neurologic no disoriented, no combative - Psychiatric oriented to time, oriented to person, oriented to place, speech is normal, memory intact Breast Exam: BRA: 40B inspection: Bilateral grade 3 ptosis Palpation: Right breast: Multi-positional exam fibrocystic changes no dominant masses or nodules of concern Right axilla: No adenopathy of concern Left breast: Ecchymosis in the 1 to 2 o'clock position, multi-positional exam fibrocystic changes no discrete dominant masses or nodules of concern Left axilla: No adenopathy of concern Results Mammogram and ultrasound reviewed in detail with Dr. Hathaway Assessment and Plan Assessment: Impression: diabetes since 38 HTN high cholesterol COPD/ worse after COVID artheritis asthma invasive lobular cancer multifocal Plan: 1. present at tumor board 2. bilateral MRI 3. follow up after tumor board CC: Dr. Adair
== END ==
LOC: WWCWWP 11:30
PROVIDERS: ATTEND Surgery
DX: C50.912 Malignant neoplasm of unspecified site of left female breast (principal); Z17.0 Estrogen receptor positive status [ER+]; J44.9 Chronic obstructive pulmonary disease, unspecified; E11.9 Type 2 diabetes mellitus without complications; F17.210 Nicotine dependence, cigarettes, uncomplicated; E78.00 Pure hypercholesterolemia, unspecified; E78.5 Hyperlipidemia, unspecified; I10 Essential (primary) hypertension; M19.90 Unspecified osteoarthritis, unspecified site; Z79.84 Long term (current) use of oral hypoglycemic drugs; Z86.16 Personal history of COVID-19; Z88.6 Allergy status to analgesic agent; Z88.9 Allergy status to unspecified drugs, medicaments and biological substances

== ENCOUNTER → 2021-11-04 | Outpatient (CLI) | payer MEDICARE, OTHER ==
--- NOTE | 2021-11-18 09:35 | BMR ---
EXAMINATION TYPE: MR breast BILAT wo/w con DATE OF EXAM: 11/04/2021 COMPARISON: Bilateral screening mammogram September 29, 2021 BI-RADS 0. Diagnostic left breast mammogram October 06, 2021 BI-RADS 0. Diagnostic left breast ultrasound BI-RADS 4. HISTORY: Malignant neoplasm of upper-outer quadrant of left breast. Invasive lobular carcinoma 2 site s on biopsy October 13, 2021 TECHNIQUE: PULSE SEQUENCES: Multiplanar, multisequence MR images of the breast were obtained on a MRI imaging [facility]. Pre-contrast axial T2 fat-saturated, pre-contrast non-fat saturated T1, and one pre- and five post-contrast fat-saturated images were obtained of both breasts together with the breast coil. Post- processed subtraction and MIP reconstructions were then generated. Dynamic images were spatially inez stered using the [employer]ers software package, and dynamic curves and parametric images were e valuated. As part of the dynamic portion of this examination, 7.5 mL of Gadavist was administered intravenously . Field of view for the dynamic portion of this study was 35 cm. FINDINGS: The technical quality of this study is considered adequate to make a final assessment and recommendat ion. There is heterogeneously dense fibroglandular tissue bilaterally and mild background enhancement. Axial T2 sequence demonstrates normal axillary lymph nodes. Axial T2 sequence demonstrates a few scattered bilateral simple cysts, largest measuring 3 mm. A 9 mm post biopsy hematoma is identified at the 2 o'clock position of the left breast, and a 8 mm post bio psy hematoma is identified at the 1 o'clock position of the left breast. Non fat saturated T1 sequence demonstrates no fat containing lesions. Signal void is identified at th e 1 o'clock position and 2 o'clock position of the left breast corresponding to mammographic marker c lips. Delayed post contrast sequence demonstrates no internal mammary lymphadenopathy. Regarding the right breast: At the 10 o'clock position, 3.7 cm from the nipple, there is an irregular mass with spiculated margins measuring 0.9 x 0.7 x 1.2 cm. Internal enhancement is heterogeneous. Ki netic assessment demonstrates fast initial enhancement followed by washout in the delayed portions of the curve. This is best seen in image number 117/250 of the dynamic post-contrast sequence. No other masses or suspicious areas of enhancement Regarding the left breast: At the 1 o'clock position,, 3.1 cm from the nipple, there is a 6 mm spicul ated mass with heterogeneous internal enhancement. This is adjacent to the area of signal void corres ponding to mammographic marker clip. Kinetic assessment demonstrates fast initial enhancement followe d by plateau in the delayed portions of the curve. This is best seen in image number 95/250 of the dy namic sequence. At the 2 o'clock position, 3.0 cm from the nipple, there is focal non mass enhancement measuring 0.9 x 0.5 x 0.8 cm. This is adjacent to the area of signal void corresponding to mammographic marker clip and abutting the 9 mm hematoma. Kinetic assessment demonstrates fast initial enhancement followed by persistent in the delayed portions of the curve. This is best seen in image number 111/250 of the dy namic sequence. IMPRESSION: Multifocal malignancy identified at the 1 and 2 o'clock position of the left breast as described in d etail in the body of the report. Suspicious spiculated mass at the 10 o'clock position of the right breast as described in detail on t he body of the report. No lymphadenopathy. Recommendations: Appropriate action be taken of the two site known left breast malignancy. MR directed ultrasound of the 10 o'clock position right breast to plan for biopsy. If there is no ult rasound correlate, an MRI guided biopsy may be challenging given the superficial location of the spic ulated mass. BI-RADS category 4, suspicious right breast. BI-RADS category 6, known biopsy proven malignancy left breast. I have reviewed and agree with the above report.
== END | disposition home or self-care (01) ==
LOC: RADMRIMAIN 14:27
PROVIDERS: ATTEND Surgery
DX: C50.412 Malignant neoplasm of upper-outer quadrant of left female breast (principal)
CPT/HCPCS: C8937; C8908; A9585; 77049

== ENCOUNTER → 2021-11-30 | Outpatient (CLI) | payer MEDICARE, OTHER ==
--- NOTE | 2021-12-01 08:24 | USB ---
Reason for Exam: MRI abnormality. Patient History: Menarche at age 9. First Full-Term at age 15. Postmenopausal. Breast cancer, left, age 66. Breast cancer, left, age 66. 10/13/2021, Malignant US biopsy breast VAD LT on the left side. 10/13/2021, Malignant US biopsy breast add'l VAD LT on the left side. Technique: Method: Whole Breast Handheld. Prior Study Comparison: 09/29/2021 Bilateral Screening Mammogram, [facility]. 10/06/2021 Left Diagnostic Mammogram, [facility]. 10/13/2021 Left MG diagnostic mammo LT wo CAD., [facility]. Findings: The whole breast of the right breast, the axilla of the right breast and the retroareolar of the right breast were scanned. No solid or cystic masses are identified.. Overall Assessment: Suspicious, BI-RAD 4 Management: MRI-guided biopsy of the right breast. Second Look ultrasound fails to finding corresponding lesion to recent MRI. Large dystrophic calcification 10:00 position is used to help localize going more superior and just lateral to this. Advise MR guided sampling. Due to difficult location would advise performing at outside institution. Electronically signed and approved by: Rickey Perkins M.D.
== END | disposition home or self-care (01) ==
LOC: RADUSWWP 14:05
PROVIDERS: ATTEND Surgery
DX: R92.8 Other abnormal and inconclusive findings on diagnostic imaging of breast (principal); Z78.0 Asymptomatic menopausal state

== ENCOUNTER → 2021-12-23 | Outpatient (CLI) | payer MEDICARE, OTHER ==
[2021-12-23 16:31] VITALS: BP 187/71; RESP 20; TEMP 98.2
--- NOTE | 2021-12-23 16:39 | P.PN ---
Subjective Progress Note Date: 12/23/21 Principal diagnosis: Multifocal left breast invasive lobular carcinoma Invasive lobular carcinoma multifocal left breast Nichelle is a 66-year-old white female status post bilateral mammogram performed on 5521. This subsequently led to an ultrasound of the left breast which revealed 2 lesions one at the 1 o'clock position which was 1.3 cm in size and a 0.4 cm lesion at the 2 o'clock position. Both underwent ultrasound-guided core biopsy on . Pathology of both sites revealed invasive lobular carcinoma. This was ER/MD positive HER-2/ranjeet negative and grade 1. The patient did not feel anything of concern in either breast. She did not complain of any nipple discharge or skin changes. She never had any breast biopsies or surgery on her breast in the past. She underwent an MRI on 11-04-21. Revealed a questionable lesion in the right breast for which an ultrasound was performed that did not show any specific lesion of concern. She declined further attempt at biopsy via MRI guidance at this time. She understands the tumor could be present but we'll continue with surveillance at her institution at this time. She would like to proceed with treatment of the left breast/lumpectomy despite the fact that his multifocal invasive lobular cancer. Oncotype was performed. The recurrent score was 14. CAffiene: 3 cups/day nicotine: since 13 1/2 PPD chocolate: occasional hormones: none BCP: 3 years in the remote past Family History: mother: colon cancer father: Esophageal cancer sister: Brain cancer sister: lung cancer Hormonal history: Menarche:10 , breast fed: no; first born at 15 menopause: 38 BCP: 3 years hormones: none Surgical history: tubaligation left knee surgery left clavicle mass vagina Medical History: diabetes since 38 HTN high cholesterol COPD/ worse after COVID artheritis asthma Social History: nicotine: 1/2 PPD alcohol: none drugs: none - Constitutional Constitutional: Denies chills, Denies fever - EENT Eyes: denies blurred vision, denies pain Ears: deny: decreased hearing, tinnitus Ears, nose, mouth and throat: Reports headache, Denies sore throat - Breasts Breasts: bilateral: as per HPI - Cardiovascular Cardiovascular: Reports shortness of breath, Denies chest pain - Respiratory Respiratory: Reports cough - Gastrointestinal Gastrointestinal: Denies abdominal pain, Denies diarrhea, Denies nausea, Denies vomiting - Genitourinary (Female) Comment: UTI - Menstruation Menstruation: Reports postmenopausal - Musculoskeletal Musculoskeletal: Reports as per HPI - Integumentary Integumentary: Denies pruritus, Denies rash - Neurological Neurological: Reports paresthesias, Denies numbness, Denies weakness - Psychiatric Psychiatric: Denies anxiety, Denies depression - Endocrine Comment: diabetes - Hematologic/Lymphatic Comment: bruises easy - Allergic/Immunologic Allergic/Immunologic: Reports as per HPI, Reports seasonal allergies Objective - Exam BMI: 28.3 - Constitutional General appearance: Present: cooperative - EENT Eyes: Present: EOMI ENT: Present: hearing grossly normal - Neck Neck: Present: normal ROM - Respiratory Respiratory: bilateral: CTA - Cardiovascular Rhythm: regular Heart sounds: normal: S1, S2 - Gastrointestinal General gastrointestinal: Present: soft - Integumentary Integumentary: Present: normal turgor - Musculoskeletal Musculoskeletal: Present: gait normal - Psychiatric Psychiatric: Present: A&O x's 3, appropriate affect, intact judgment & insight - Additional findings Additional findings: Breast Exam: BRA: 44B inspection: The lateral grade 3 ptosis Right breast: Multipositional exam fibrocystic changes, no dominant masses or nodules of concern Right axilla: No adenopathy of concern Left breast: Multiple positional exam fibrocystic changes, no dominant masses or nodules of concern Left axilla: No adenopathy of concern Assessment and Plan Assessment: Impression: diabetes since 38 HTN high cholesterol COPD/ worse after COVID artheritis asthma 2 focal invasive lobular carcinoma left breast Plan: Medical clearance Dr. Adair Needle localization 2 sites in the left breast 1:00 and 2:00 with lumpectomy possible mastopexy incision, possible optical plastic tissue transfer, sentinel node injection left, sentinel node biopsy, possible left axillary node dissection CC: Dr. Adair Disc and benefits of the procedure again discussed with the patient. Risks include but are not limited to bleeding, infection, reaction to the anesthetic. The patient understands the margins were positive and further tumor may need to be resected.
== END ==
LOC: WWCWWP 15:13
PROVIDERS: ATTEND Surgery
DX: C50.412 Malignant neoplasm of upper-outer quadrant of left female breast (principal); E11.9 Type 2 diabetes mellitus without complications; I10 Essential (primary) hypertension; E78.00 Pure hypercholesterolemia, unspecified; M19.90 Unspecified osteoarthritis, unspecified site; J44.9 Chronic obstructive pulmonary disease, unspecified; F17.210 Nicotine dependence, cigarettes, uncomplicated; Z88.6 Allergy status to analgesic agent; Z88.9 Allergy status to unspecified drugs, medicaments and biological substances

== ENCOUNTER 2022-01-10 09:46 | Day surgery (SDC) | payer MEDICARE, OTHER ==
[2022-01-05 13:44] VITALS: BMI 28.3
[~2022-01-10 09:46] MED LIST changes: -BUPIVACAINE (PF) 0.5% 30 ML VIAL ONE; -DEXAMETHASONE SOD PHOS (MDV) 100 MG/10 ML VIAL ONE; +DEXAMETHASONE SOD PHOSPHATE 4 MG/ML 1 ML VIAL IV ONE; +HEPARIN SODIUM,PORCINE/PF 5,000 UNIT/0.5 ML SYRINGE SQ PRN; -IV FLUID CONTINUATION 1,000 ML IV ONE; -LACTATED RINGERS 1,000 ML IV ONE; +LACTATED RINGERS 1,000 ML IV SCH; +LIDOCAINE 1% (10MG/ML) FOR IV START INTRADERMA PRN; -LIDOCAINE 1% 20 ML VIAL (10MG/ML) FOR IV START INTRADERMA ONE; -MIDAZOLAM 2 MG/2 ML VIAL ONE; +MORPHINE SULFATE 4 MG/ML SYRINGE IV PRN; +ONDANSETRON 4 MG/2 ML VIAL IVP ONE; -fentaNYL (PF) 50 MCG/ML 2 ML AMP ONE
[2022-01-10 10:57] LABS: Glucose,Whole Blood 150 mg/dL (70-110)
[2022-01-10] MEDS ORDERED: ALPRAZolam 0.25 MG TAB ONE (11:00)
[2022-01-10] MEDS ORDERED: ALPRAZolam 0.25 MG TAB PO ONE (11:01)
[2022-01-10] MEDS ORDERED: LIDOCAINE 1% INJ 10MG/ML (20 ML MDV) SQ ONE ×2 (11:37→16:33)
--- NOTE | 2022-01-10 13:58 | P.NAPBC ---
NAPBC Queries - NAPBC Queries Was patient's case review presented at [facility] tumor board? If no, comment.: Yes Was patient's pathology reviewed at [facility]? If no, comment.: Yes Was breast conservation surgery offered? If no, comment.: Yes Was sentinel node biopsy offered? If no, comment.: Yes Was diagnosis confirmed by percutaneous core biopsy? If no, comment.: Yes Is patient mastectomy patient?: No Was a preop referral to reconstructive surgeon offered?: No Clinical Stage: Stage I multifocal invasive lobular cancer
--- NOTE | 2022-01-10 14:17 | NM ---
EXAMINATION TYPE: NM sentinel node injection DATE OF EXAM: 01/10/2022 COMPARISON: NONE HISTORY: Breast Cancer TECHNIQUE AND FINDINGS: The procedure of sentinel lymph node injection was explained to the patient. The benefits, alternatives, and risks were discussed. An informed consent was then obtained. Overlying skin is cleaned with sterile alcohol. Following this, 521 uCi [id number] Tilmanocept was inject ed in the upper outer aspect of the left nipple intradermally. The patient tolerated the procedure well without any immediate complication. The patient was kept in the radiology department for short stay after the procedure and then taken to surgery for surgical p rocedure what is presumed intraoperative gamma probe will be used for sentinel lymph node detection. IMPRESSION: Left breast radiotracer injection for sentinel node localization as above.
[2022-01-10] MEDS ORDERED: PROPOFOL 10 MG/ML 20 ML VIAL IV ONE (14:38)
[2022-01-10] MEDS ORDERED: LIDOCAINE 2% INJ 20 MG/ML (2 ML VIAL) ONE (14:38)
[2022-01-10] MEDS ORDERED: MIDAZOLAM 2 MG/2 ML VIAL ONE (14:38)
[2022-01-10] MEDS ORDERED: SUCCINYLCHOLINE CHLORIDE 200 MG/10 ML VIAL IV ONE (14:38)
[2022-01-10] MEDS ORDERED: PHENYLEPHRINE-0.9% NACL SYG 1,000 MCG/10 ML SYRINGE ONE (14:38)
[2022-01-10] MEDS ORDERED: fentaNYL (PF) 50 MCG/ML 2 ML AMP ONE (14:38)
--- NOTE | 2022-01-10 16:41 | P.OP ---
Date of Procedure: 01/10/22 Preoperative Diagnosis: Multifocal invasive lobular carcinoma left breast Postoperative Diagnosis: Same Procedure(s) Performed: Left breast needle localization of 2 areas with a lumpectomy, mastopexy, onco- plastic tissue transfer 63 CM2, sentinel node biopsy Anesthesia: GALILEAA Surgeon: Kelsea Oliveros Estimated Blood Loss (ml): 8 IV fluids (ml): 600 Pathology: other (Brethren node, axillary breast tissue) Condition: stable Disposition: same day Indications for Procedure: Invasive lobular carcinoma left breast, multifocal Operative Findings: Fibrofatty breast tissue Description of Procedure: The patient was initially seen in the radiology department. Localization of 2 areas of concern in the left breast were performed. The patient had injection for a sentinel node biopsy. She was brought to the operative suite. Following induction of anesthesia a neoprobe was used to interrogate the axilla. Radioactivity was noted to be present in the axilla. The patient was then prepped and draped in a sterile fashion. The axilla was approached initially. An incision was made in the axillary hairline. This was carried down into the axillary tissue. Using an Allis the tissue was grasped and using the neoprobe the area of greatest radioactivity was identified. The lymph node was identified and resected. Some additional axillary tissue was removed as well. The 10 second count on the sentinel lymph node was 10,927. The background count was 27. After assured that hemostasis was attained the deep tissues were closed using 3-0 Vicryl suture.. This was followed by closure of the skin with a 4-0 Monocryl. The axilla was irrigated prior to closure and hemostasis was attained. The area of the breast was approached. In the preoperative. Markings had been placed for mastopexy incision. The apex of the the nipple was 3 cm higher than prior. The skin was de-epithelialized. Dissection was performed and both areas were identified and dissection was performed around the needles in the specimen. The specimen was painted for orientation. Radiograph of the specimen revealed that the 2 needles and 2 clips were identified. No other abnormalities of concern were noted in the breast tissue. A superior flap was developed the superior flap was 6 cm x 4 cm, the inferior flap was 3 cm x 5 cm, and the cavity was a centimeters by 3 cm. This was a total of tissue transfer of 63 cm. The cavity was well irrigated. Titanium clips were placed. The deep tissues were closed using 3-0 Vicryl suture. This was followed by 3-0 Vicryl subcutaneous suture. A 4-0 Monocryl subcuticular suture was placed, to perform the mastopexy. Steri-Strips were applied. 10 mL of 1% lidocaine were used prior to placement of Steri-Strips. The patient tolerated the procedure in stable condition. All instrument and sponge counts were correct at the end of the case.
--- NOTE | 2022-01-10 16:43 | P.DS ---
Providers Attending physician: Kelsea Oliveros Primary care physician: Sumeet Adair Plan - Discharge Summary Discharge Rx Participant: No New Discharge Prescriptions: No Action Lovastatin [Mevacor] 40 mg PO W/SUPPER metFORMIN HCL [Glucophage] 1,000 mg PO BID Cholecalciferol [Vitamin D3 (25 Mcg = 1000 Iu)] 25 mcg PO DAILY Metoprolol Tartrate [Lopressor] 50 mg PO BID Losartan [Cozaar] 50 mg PO DAILY Fluticasone Furoate [Arnuity Ellipta] 1 puff INHALATION RT-DAILY hydroCHLOROthiazide [Hydrodiuril] 25 mg PO BID Ipratropium-Albuterol Nebulize [Duoneb 0.5 mg-3 mg/3 ml Soln] 3 ml INHALATION DIRECTED PRN PRN Reason: Shortness Of Breath Discharge Medication List Lovastatin [Mevacor] 40 mg PO W/SUPPER 07/26/16 [History] metFORMIN HCL [Glucophage] 1,000 mg PO BID 07/26/16 [History] Cholecalciferol [Vitamin D3 (25 Mcg = 1000 Iu)] 25 mcg PO DAILY 09/25/16 [History] Fluticasone Furoate [Arnuity Ellipta] 1 puff INHALATION RT-DAILY 02/28/21 [History] Losartan [Cozaar] 50 mg PO DAILY 02/28/21 [History] Metoprolol Tartrate [Lopressor] 50 mg PO BID 02/28/21 [History] hydroCHLOROthiazide [Hydrodiuril] 25 mg PO BID 02/28/21 [History] Ipratropium-Albuterol Nebulize [Duoneb 0.5 mg-3 mg/3 ml Soln] 3 ml INHALATION DIRECTED PRN 01/05/22 [History] Follow up Appointment(s)/Referral(s): Kelsea Oliveros MD [STAFF PHYSICIAN] - 01/19/22 1:00 pm Activity/Diet/Wound Care/Special Instructions: Do not drive until seen by Dr. Michael Wear bra at all times unless showering May shower after 48 hours Discharge Disposition: HOME SELF-CARE
[2022-01-10 17:20] VITALS: TEMP 98.8
[2022-01-10 17:22] LABS: Glucose,Whole Blood 193 mg/dL (70-110)
[2022-01-10] MEDS ORDERED: ALBUTEROL NEBULIZED 2.5 MG/3 ML INHALATION ONE (17:32)
[2022-01-10] MEDS ORDERED: HYDROmorphone 0.5 MG/0.5 ML SYRINGE IVP ONE (17:35)
[2022-01-10] MEDS ORDERED: HYDROcodone/APAP 5-325MG 1 EACH TAB ONE (18:10)
[2022-01-10] MEDS ORDERED: HYDROcodone/APAP 5-325MG 1 EACH TAB PO ONE (18:13)
[2022-01-10 18:29] VITALS: RESP 16
[2022-01-10 18:52] VITALS: BP 158/66; PULSE 99
--- NOTE | 2022-01-12 07:26 | USB ---
EXAMINATION TYPE: US breast localization LT, US breast localization LT DATE OF EXAM: 01/10/2022 11:50 AM COMPARISON: NONE HISTORY: C50.412, MALIGNANT NEOPLASM OF UOQ x 2 Informed consent was obtained and all the patient's questions were answered. The clips in question was localized sonographically. The standard sterile technique was utilized, as well as appropriate local anesthesia with 1% Lidocaine and bicarbonate. Localization needle followed by placement of a guidewire was performed under sonographic guidance at each site 1:00 and 2:00. Verification images demonstrate appropriate deployment of the guidewire. The patient tolerated the procedure well and left the department in stable condition. Specimen radiograph demonstrates the clips in question to reside within the specimen. IMPRESSION: Successful needle localization and open biopsy left breast with pathology results pending. Pathology Results: Result: Malignant, Invasive lobular carcinoma. A. LEFT SENTINEL LYMPH NODE, EXCISION: One sentinel lymph node, negative for metastatic carcinoma. CK7 and ISAURO stains, performed with appropriate controls on block A1, both negative for features of metastatic carcinoma. B. AXILLARY CONTENTS, EXCISION: One axillary lymph node, negative for metastatic carcinoma. C. LEFT BREAST, LUMPECTOMY: Favored multifocal invasive lobular carcinoma associated with multifocal lobular carcinoma in situ (LCIS). See surgical pathology cancer case summary and comment. Cauterized lobular carcinoma present at superior margin and lobular carcinoma present very close to and less than 1 mm from closest anterior margin. All other margins negative for invasive carcinoma. Focally suggestive area of low grade DCIS present 4 mm from closest superior margin. All margins negative for DCIS. Overall Assessment: Malignant Management: Surgical Consultation of the left breast. Appropriate oncologic management. MALLORY
== END 2022-01-10 19:05 | disposition home or self-care (01) ==
LOC: OR 09:46
PROVIDERS: ATTEND Surgery
DX: D05.02 Lobular carcinoma in situ of left breast (principal); F17.210 Nicotine dependence, cigarettes, uncomplicated; Z80.0 Family history of malignant neoplasm of digestive organs; Z80.1 Family history of malignant neoplasm of trachea, bronchus and lung; E11.9 Type 2 diabetes mellitus without complications; I10 Essential (primary) hypertension; E78.00 Pure hypercholesterolemia, unspecified; J44.9 Chronic obstructive pulmonary disease, unspecified; Z86.16 Personal history of COVID-19; M19.90 Unspecified osteoarthritis, unspecified site; Z80.8 Family history of malignant neoplasm of other organs or systems; Z98.51 Tubal ligation status; Z98.890 Other specified postprocedural states; Z97.2 Presence of dental prosthetic device (complete) (partial); Z79.84 Long term (current) use of oral hypoglycemic drugs; Z79.899 Other long term (current) drug therapy; Z88.6 Allergy status to analgesic agent; Z91.09 Other allergy status, other than to drugs and biological substances
CPT/HCPCS: 14301; 14302; 19301; 38525; 84132; 88342; 88307; 77065; 76098; 19285; 19286; 38792; A9520; J2250; J0330; J1100; J0690; J2405; J2001 ×2; J3010; J2370; J2704; J1170; J1644

== ENCOUNTER 2022-02-14 12:47 | Day surgery (SDC) | payer MEDICARE, OTHER ==
--- NOTE | 2022-02-10 13:17 | P.PN ---
Subjective Progress Note Date: 02/10/22 Principal diagnosis: Multifocal invasive lobular carcinoma left breast/abnormal right breast MRI for which patient has declined further workup at this time Multifocal left breast invasive lobular carcinoma; [place] [address], cauterized lobular carcinoma was present at the superior margin and lobular carcinoma very close to the anterior margin Nichelle is a 66-year-old white female status post bilateral mammogram performed on 5521. This subsequently led to an ultrasound of the left breast which revealed 2 lesions one at the 1 o'clock position which was 1.3 cm in size and a 0.4 cm lesion at the 2 o'clock position. Both underwent ultrasound-guided core biopsy on . Pathology of both sites revealed invasive lobular carcinoma. This was ER/IL positive HER-2/ranjeet negative and grade 1. The patient did not feel anything of concern in either breast. She did not complain of any nipple discharge or skin changes. She never had any breast biopsies or surgery on her breast in the past. She underwent an MRI on 11-04-21. Revealed a questionable lesion in the right breast for which an ultrasound was performed that did not show any specific lesion of concern. She declined further attempt at biopsy via MRI guidance at this time. She understands the tumor could be present but will continue with surveillance only at this time. She would like to proceeded with treatment of the left breast/lumpectomy despite the fact that his multifocal invasive lobular [place] [address] which again revealed positive margin superiorly and a close margin anteriorly. Additionally she was noted to have multifocal lobular carcinoma in situ as well as focally suggestive area of low-grade DCIS. Oncotype was performed. The recurrent score was 14. CAffiene: 3 cups/day nicotine: since 13 1/2 PPD chocolate: occasional hormones: none BCP: 3 years in the remote past Family History: mother: colon cancer father: Esophageal cancer sister: Brain cancer sister: lung cancer Hormonal history: Menarche:10 , breast fed: no; first born at 15 menopause: 38 BCP: 3 years hormones: none Surgical history: tubaligation left knee surgery left clavicle mass vagina Medical History: diabetes since 38 HTN high cholesterol COPD/ worse after COVID artheritis asthma Social History: nicotine: 1/2 PPD alcohol: none drugs: none - Constitutional Constitutional: Denies chills, Denies fever - EENT Eyes: denies blurred vision, denies pain Ears: deny: decreased hearing, tinnitus Ears, nose, mouth and throat: Reports headache, Denies sore throat - Breasts Breasts: bilateral: as per HPI - Cardiovascular Cardiovascular: Reports shortness of breath, Denies chest pain - Respiratory Respiratory: Reports cough - Gastrointestinal Gastrointestinal: Denies abdominal pain, Denies diarrhea, Denies nausea, Denies vomiting - Genitourinary (Female) Comment: UTI - Menstruation Menstruation: Reports postmenopausal - Musculoskeletal Musculoskeletal: Reports as per HPI - Integumentary Integumentary: Denies pruritus, Denies rash - Neurological Neurological: Reports paresthesias, Denies numbness, Denies weakness - Psychiatric Psychiatric: Denies anxiety, Denies depression - Endocrine Comment: diabetes - Hematologic/Lymphatic Comment: bruises easy - Allergic/Immunologic Allergic/Immunologic: Reports as per HPI, Reports seasonal allergies Objective - Constitutional General appearance: Present: cooperative - EENT Eyes: Present: EOMI ENT: Present: hearing grossly normal - Respiratory Respiratory: bilateral: CTA - Cardiovascular Rhythm: regular Heart sounds: normal: S1, S2 - Integumentary Integumentary: Present: normal turgor - Musculoskeletal Musculoskeletal: Present: gait normal - Psychiatric Psychiatric: Present: A&O x's 3, appropriate affect, intact judgment & insight - Additional findings Additional findings: Breast examination: BRA: 40B Inspection: Bilateral grade 3 ptosis, well-healed scar left breast recent surgery Palpation: Right breast: Multiple positional exam fibrocystic change or dominant masses or nodules of concern Right axilla: No adenopathy of concern Left breast: Well-healed scar prior surgery Left axilla: Well-healed scar from sentinel node biopsy Assessment and Plan Assessment: Impression: diabetes since 38 HTN high cholesterol COPD/ worse after COVID artheritis asthma Positive margin left breast lumpectomy invasive lobular carcinoma Plan: Reexcision superior and anterior margin left breast multifocal invasive lobular carcinoma sites, possible onco-palstic tissue transfer Risks and benefits of the procedure discussed with the patient. Risks include but are not limited to bleeding, infection, reaction to the anesthetic. Despite the fact that this is multifocal and lobular carcinoma the patient has not agreed to a mastectomy and at this point further excision is going to be performed. Additionally she understands them the MRI there was a lesion of concern in the contralateral/right breast for which she has declined further workup. CC: Dr. Adair
[2022-02-10 15:28] VITALS: BMI 28.4
[~2022-02-14 12:47] MED LIST changes: +HYDROmorphone 0.5 MG/0.5 ML SYRINGE IVP PRN; -LIDOCAINE 1% (10MG/ML) FOR IV START INTRADERMA PRN; -MORPHINE SULFATE 4 MG/ML SYRINGE IV PRN; +Pre Op ABX Message 1 EACH MISC MISCELLANE ONE
[2022-02-14 13:06] VITALS: TEMP 98.6
[2022-02-14 13:18] LABS: Glucose,Whole Blood 148 mg/dL (70-110)
--- NOTE | 2022-02-14 13:26 | P.NAPBC ---
NAPBC Queries - NAPBC Queries Was patient's case review presented at [facility] tumor board? If no, comment.: Yes Was patient's pathology reviewed at [facility]? If no, comment.: Yes Was breast conservation surgery offered? If no, comment.: Yes Was sentinel node biopsy offered? If no, comment.: Yes Was diagnosis confirmed by percutaneous core biopsy? If no, comment.: Yes Is patient mastectomy patient?: No Was a preop referral to reconstructive surgeon offered?: No Clinical Stage: multifocal stage Iinvasive lobular cancer; T1 [id number]+Her2-G1; positive superior margin; close anterior margin
[2022-02-14] MEDS ORDERED: SODIUM CHLORIDE 0.9% 100 ML with ceFAZolin 2,000 MG IV ONE ×2 (14:29)
[2022-02-14] MEDS ORDERED: LIDOCAINE 1% INJ 10MG/ML (20 ML MDV) SQ ONE (14:57)
--- NOTE | 2022-02-14 15:06 | P.OP ---
Date of Procedure: 02/14/22 Preoperative Diagnosis: Positive superior margin left breast invasive lobular carcinoma prior lumpectomy, close anterior margin Postoperative Diagnosis: Same Procedure(s) Performed: Reexcision superior and anterior margin left breast lumpectomy site Anesthesia: JASSON Surgeon: Kelsea Oliveros Estimated Blood Loss (ml): 5 IV fluids (ml): 550 Pathology: other (Superior and anterior margin reexcision) Condition: stable Disposition: same day Indications for Procedure: Prior lumpectomy for left breast invasive lobular carcinoma with a positive superior margin and close anterior margin Operative Findings: Dense breast tissue, prior lumpectomy cavity clearly delineated Description of Procedure: The patient is a 66-year-old white female status post left breast lumpectomy for invasive lobular carcinoma multifocal. She was noted to have a positive superior margin and close anterior margin on the permanent pathology slides. It was recommended she undergo reexcision of the superior and anterior margins. She was brought to the operative suite and following induction of anesthesia the left breast was prepped and draped in a sterile fashion. Incision was made in the prior mastopexy incision and carried down to the lumpectomy cavity. Upon entering the cavity of the superior margin was excised. This was grasped with an Allis clamp and surrounding tissue was excised. The anterior margin was likewise excised. The specimens were painted on the external surface with black pen from the superior margin and anterior margin. After assured that hemostasis was attained titanium clips were placed. Hemostasis was attained using electrocautery device. The deep tissues were closed using 3-0 Vicryl suture. This was followed by closure of the subcutaneous tissue with interrupted 3-0 Vicryl sutures followed by running 3-0 Vicryl suture and a 4-0 Monocryl. Surgical glue was placed. The patient tolerated the procedure in stable condition. The specimens were sent to pathology for permanent sectioning. All instruments and sponge counts were correct at the end of the case.
--- NOTE | 2022-02-14 15:08 | P.DS ---
Providers Attending physician: Kelsea Oliveros Primary care physician: Sumeet Adair Plan - Discharge Summary Discharge Rx Participant: Yes New Discharge Prescriptions: No Action Lovastatin [Mevacor] 40 mg PO W/SUPPER metFORMIN HCL [Glucophage] 1,000 mg PO BID Cholecalciferol [Vitamin D3 (25 Mcg = 1000 Iu)] 25 mcg PO DAILY Metoprolol Tartrate [Lopressor] 50 mg PO BID Losartan [Cozaar] 50 mg PO DAILY Fluticasone Furoate [Arnuity Ellipta] 1 puff INHALATION RT-DAILY hydroCHLOROthiazide [Hydrodiuril] 25 mg PO BID Ipratropium-Albuterol Nebulize [Duoneb 0.5 mg-3 mg/3 ml Soln] 3 ml INHALATION DIRECTED PRN PRN Reason: Shortness Of Breath Discharge Medication List Lovastatin [Mevacor] 40 mg PO W/SUPPER 07/26/16 [History] metFORMIN HCL [Glucophage] 1,000 mg PO BID 07/26/16 [History] Cholecalciferol [Vitamin D3 (25 Mcg = 1000 Iu)] 25 mcg PO DAILY 09/25/16 [History] Fluticasone Furoate [Arnuity Ellipta] 1 puff INHALATION RT-DAILY 02/28/21 [History] Losartan [Cozaar] 50 mg PO DAILY 02/28/21 [History] Metoprolol Tartrate [Lopressor] 50 mg PO BID 02/28/21 [History] hydroCHLOROthiazide [Hydrodiuril] 25 mg PO BID 02/28/21 [History] Ipratropium-Albuterol Nebulize [Duoneb 0.5 mg-3 mg/3 ml Soln] 3 ml INHALATION DIRECTED PRN 01/05/22 [History] Follow up Appointment(s)/Referral(s): Kelsea Oliveros MD [STAFF PHYSICIAN] - 02/23/22 12:00 pm Activity/Diet/Wound Care/Special Instructions: do not drive until seen by Dr. Michael may shower after 48 hours wear bra at all times Discharge Disposition: HOME SELF-CARE
[2022-02-14] MEDS ORDERED: HYDROcodone/APAP 5-325MG 1 EACH TAB ONE (16:39)
[2022-02-14] MEDS ORDERED: HYDROcodone/APAP 5-325MG 1 EACH TAB PO ONE (16:40)
[2022-02-14 16:42] VITALS: PULSE 91
[2022-02-14 17:07] VITALS: BP 177/82; RESP 18
== END 2022-02-14 17:22 | disposition home or self-care (01) ==
LOC: OR 12:47
PROVIDERS: ATTEND Surgery
DX: C50.412 Malignant neoplasm of upper-outer quadrant of left female breast (principal); N60.82 Other benign mammary dysplasias of left breast; E11.9 Type 2 diabetes mellitus without complications; I10 Essential (primary) hypertension; E78.00 Pure hypercholesterolemia, unspecified; J44.9 Chronic obstructive pulmonary disease, unspecified; M19.90 Unspecified osteoarthritis, unspecified site; Z86.16 Personal history of COVID-19; F17.210 Nicotine dependence, cigarettes, uncomplicated; Z79.84 Long term (current) use of oral hypoglycemic drugs; Z79.899 Other long term (current) drug therapy; Z79.890 Hormone replacement therapy; Z79.891 Long term (current) use of opiate analgesic; Z79.51 Long term (current) use of inhaled steroids
CPT/HCPCS: 19301; 88307; J1100; J2405; J0690; J2001; J1644

== ENCOUNTER → 2022-02-23 | Outpatient (CLI) | payer MEDICARE, OTHER ==
--- NOTE | 2022-02-23 12:50 | P.PN ---
Progress Note - Text Progress Note Date: 02/23/22 Nichelle is status post re-excision of superior margin left mastectomy site on 02-14-22. Margin was negative for invasive cancer. Her initial surgery was for an invasive lobular carcinoma at 2 sites which was grade 1 ER/MD positive HER- 2/ranjeet negative. Physical examination: Lungs: Clear Heart: Regular rate and rhythm Incision: Clean and dried Plan: Follow-up medical oncology Follow-up radiation oncology Follow-up here in 4 months CC: Dr. Adair
[2022-02-23 14:29] VITALS: BP 171/65; PULSE 77; RESP 17; TEMP 97.9
== END | disposition home or self-care (01) ==
LOC: WWCWWP 11:51
PROVIDERS: ATTEND Surgery
DX: Z53.9 Procedure and treatment not carried out, unspecified reason (principal)

== ENCOUNTER → 2022-03-10 | Outpatient (CLI) | payer MEDICARE, OTHER ==
--- NOTE | 2022-03-10 12:20 | BD ---
EXAMINATION TYPE: Axial Bone Density DATE OF EXAM: 03/10/2022 COMPARISON: FIRST DEXA STUDY AT [facility] CLINICAL HISTORY: 66 years year old Female. ICD-10 CODE: C50.412 MALIG IRA OF UPPER OUTER QUAD OF LE IGOR YOHANA Height: 63.2 Weight: 169 FRAX RISK QUESTIONS: Glucocorticoids (More than 3mos): YES (Ex: prednisone, prednisolone, methylprednisolone, dexamethasone, and hydrocortisone). Secondary Osteoporosis: YES 3. Menopause before 45: YES Current Tobacco Use: YES RISK FACTORS HISTORY OF: Postmenopausal woman: YES AT 38 YRS OLD ....NATURAL Lost more than 2 inches in height since high school: YES Hyperparathyroidism: NO Adrenal Insufficiency: NO MEDICATIONS: Prednisone or other steroids: YES, COPD, FOR ABOUT 10 YRS Additional Medications: BP MEDS, METFORMIN, RACLOPRIDE, STATIN FOR CHOLESTEROL, VIT D Additional History: LT BREAST CANCER, DECEMBER 2021, COPD, DIABETIC, CHOLESTEROL, EARLY MENOPAUSE, EXAM MEASUREMENTS: Bone mineral densitometry was performed using the [employer] System. Bone mineral density as measured about the Lumbar spine is: ----- L1-L4(G/cm2): 1.297 T Score Values are as follows: ----- L1: 0.7 ----- L2: 0.8 ----- L3: 0.4 ----- L4: 1.8 ----- L1-L4: 1.0 Bone mineral density BASELINE STUDY Bone mineral density about the R hip (g/cm2): 1.148 Bone mineral density about the L hip (g/cm2): 1.133 T Score values are as follows: -----R Neck: -0.3 -----L Neck: 0.2 -----R Total: 1.1 -----L Total: 1.0 Bone mineral density BASELINE STUDY FRAX%s: The graph provided illustrates a 11.1% chance for a major osteoporotic fx and a 1.2% chance f or the hips probability for fx in 10 years time. IMPRESSION: Normal (Values between +1 and -1 indicate normal bone mass). Consider repeating this study in 5 year s or sooner if there is some new clinical indication. NOTE: T-SCORE=SD OF THE YOUNG ADULT MEAN.
== END ==
LOC: RADBDWWP 09:29
PROVIDERS: ATTEND Internal Medicine
DX: C50.412 Malignant neoplasm of upper-outer quadrant of left female breast (principal); Z78.0 Asymptomatic menopausal state
CPT/HCPCS: 77080

== ENCOUNTER → 2022-06-26 | Outpatient (CLI) | payer MEDICARE, OTHER ==
--- NOTE | 2022-06-27 12:15 | MM ---
Reason for Exam: Follow-up at short interval from prior study. Last screening mammogram was performed 8 month(s) ago. Patient History: Menarche at age 9. First Full-Term at age 15. Postmenopausal. Breast cancer, left, age 66. Breast cancer, left, age 66. Breast cancer, left, age 66. 01/10/2022, Lumpectomy on the Left side. 01/10/2022, Malignant US breast localization LT on the left side. 01/10/2022, US breast localization LT on the Left side. 10/13/2021, Malignant US biopsy breast VAD LT on the left side. 10/13/2021, Malignant US biopsy breast add'l VAD LT on the left side. Prior Study Comparison: 01/09/2013 Bilateral Screening Mammogram, [facility]. 10/21/2015 Bilateral Screening Mammogram, [facility]. 03/30/2017 Bilateral Screening Mammogram, [facility]. 08/09/2018 Bilateral Screening Mammogram, [facility]. 03/18/2020 Bilateral Screening Mammogram, [facility]. 04/02/2020 Right Diagnostic Mammogram, [facility]. 09/29/2021 Bilateral Screening Mammogram, [facility]. 10/06/2021 Left Diagnostic Mammogram, [facility]. 10/06/2021 Left Diagnostic Ultrasound, [facility]. 10/13/2021 Left MG diagnostic mammo LT wo CAD., [facility]. 11/04/2021 Bilateral MR breast bilat wo/w con, [facility]. 11/30/2021 Right US breast RT, [facility]. 01/10/2022 Left MG diagnostic mammo LT wo CAD., [facility]. Tissue Density: Right: The breast tissue is heterogeneously dense. This may lower the sensitivity of mammography. Findings: Analyzed By CAD. No new suspicious mass or worrisome calcifications within the right breast. Benign calcifications are redemonstrated within the right breast. Overall Assessment: Benign, BI-RAD 2 Management: Diagnostic Mammogram of both breasts in 6 months. A clinical breast exam by your physician is recommended on an annual basis and results should be correlated with mammographic findings. This exam should not preclude additional follow-up of suspicious palpable abnormalities. Results were given to the patient verbally at the time of exam. Electronically signed and approved by: Mateo Lindsey D.O.
== END | disposition home or self-care (01) ==
LOC: RADMAMWWP 13:39
PROVIDERS: ATTEND Surgery
DX: R92.8 Other abnormal and inconclusive findings on diagnostic imaging of breast (principal); Z78.0 Asymptomatic menopausal state
CPT/HCPCS: 77065

== ENCOUNTER → 2022-06-30 | Outpatient (CLI) | payer MEDICARE, OTHER ==
[2022-06-30 13:56] VITALS: BP 110/72; PULSE 79; RESP 17; TEMP 98.9
--- NOTE | 2022-06-30 14:25 | P.PN ---
Subjective Progress Note Date: 06/30/22 Principal diagnosis: left breast invasive lobular cancer stage [place] 2021 Multifocal left breast invasive lobular carcinoma Nichelle is a 66-year-old white female status post bilateral mammogram performed on 5521. This subsequently led to an ultrasound of the left breast which revealed 2 lesions one at the 1 o'clock position which was 1.3 cm in size and a 0.4 cm lesion at the 2 o'clock position. Both underwent ultrasound-guided core biopsy on . Pathology of both sites revealed invasive lobular carcinoma. This was ER/ID positive HER-2/ranjeet negative and grade 1. The patient did not feel anything of concern in either breast. She did not complain of any nipple discharge or skin changes. She never had any breast biopsies or surgery on her breast in the past. She underwent an MRI on 11-04-21. Revealed a questionable lesion in the right breast for which an ultrasound was performed that did not show any specific lesion of concern. She declined further attempt at biopsy via MRI guidance at this time. She understands the tumor could be present but we'll continue with surveillance at her institution at this time. She would like to proceed with treatment of the left breast/lumpectomy despite the fact that his multifocal invasive lobular cancer. Nichelle underwent a left breast lumpectomy and SNB on 01-10-22, her node was negative but superior margin was (+). She underwent re-excision on 02-14-22 and margin was negative. The patient had a right breast mammogram on which was benign BIRADS 2 Oncotype was performed. The recurrent score was 14. She declined radiation therapy. She was started on anestrazole. She also was going to have genetic testing. 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 artheritis asthma Social History: nicotine: 1/2 PPD alcohol: none drugs: none - Constitutional Constitutional: Denies chills, Denies fever - EENT Eyes: denies blurred vision, denies pain Ears: deny: decreased hearing, tinnitus Ears, nose, mouth and throat: Reports headache, Denies sore throat - Breasts Breasts: bilateral: as per HPI - Cardiovascular Cardiovascular: Reports shortness of breath, Denies chest pain - Respiratory Respiratory: Reports cough - Gastrointestinal Gastrointestinal: Denies abdominal pain, Denies diarrhea, Denies nausea, Denies vomiting - Genitourinary (Female) Comment: UTI - Menstruation Menstruation: Reports postmenopausal - Musculoskeletal Musculoskeletal: Reports as per HPI - Integumentary Integumentary: Denies pruritus, Denies rash - Neurological Neurological: Reports paresthesias, Denies numbness, Denies weakness - Psychiatric Psychiatric: Denies anxiety, Denies depression - Endocrine Comment: diabetes - Hematologic/Lymphatic Comment: bruises easy - Allergic/Immunologic Allergic/Immunologic: Reports as per HPI, Reports seasonal allergies Objective - Vital Signs Vital signs: Vital Signs Temp 98.9 F 06/30/22 13:54 Pulse 79 06/30/22 13:54 Resp 17 06/30/22 13:54 BP 110/72 06/30/22 13:54 Pulse Ox 96 06/30/22 13:54 FiO2 Intake & Output 06/29/22 06/30/22 06/30/22 18:59 06:59 18:59 Weight 74.843 kg - Constitutional General appearance: Present: cooperative - EENT Eyes: Present: EOMI ENT: Present: hearing grossly normal - Neck Neck: Present: normal ROM - Respiratory Respiratory: bilateral: CTA - Cardiovascular Rhythm: regular Heart sounds: normal: S1, S2 - Gastrointestinal General gastrointestinal: Present: soft - Integumentary Integumentary: Present: normal turgor - Musculoskeletal Musculoskeletal: Present: gait normal - Psychiatric Psychiatric: Present: A&O x's 3, appropriate affect, intact judgment & insight - Additional findings Additional findings: Breast Exam: BRA: 44B Inspection: Well-healed scar left breast from prior mastopexy incision, bilateral grade 2 ptosis Palpation: Right breast: Multi-positional exam fibrocystic changes no dominant masses or nodules of concern Right axilla: No adenopathy of concern Left breast: Multi-positional exam fibrocystic changes no dominant masses or nodules of concern, postsurgical changes no evidence of any cancer Left axilla: No adenopathy of concern Assessment and Plan Assessment: Impression: diabetes since 38 HTN high cholesterol COPD/ worse after COVID artheritis asthma Patient status post left breast lumpectomy and sentinel node biopsy no evidence of any recurrent left breast cancer Recent right breast mammogram [id number] benign BIRADS 2 Patient presently on anastrozole tolerating this Plan: Right breast mammogram in September 2022 with appointment at that time Continue anastrozole Follow-up sooner any questions or concerns CC: DR. Adair
== END ==
LOC: WWCWWP 13:33
PROVIDERS: ATTEND Surgery
DX: Z85.3 Personal history of malignant neoplasm of breast (principal); I10 Essential (primary) hypertension; E11.9 Type 2 diabetes mellitus without complications; E78.00 Pure hypercholesterolemia, unspecified; J44.9 Chronic obstructive pulmonary disease, unspecified; M19.90 Unspecified osteoarthritis, unspecified site; F17.210 Nicotine dependence, cigarettes, uncomplicated; Z88.6 Allergy status to analgesic agent; Z91.048 Other nonmedicinal substance allergy status

== ENCOUNTER → 2022-11-15 | Outpatient (CLI) | payer MEDICARE, OTHER ==
--- NOTE | 2022-11-15 09:50 | CT ---
EXAMINATION TYPE: CT sinus wo con DATE OF EXAM: 11/15/2022 COMPARISON: None HISTORY: Chronic sinusitis. CT DLP: 575.3 mGycm. Automated Exposure Control for Dose Reduction was Utilized. TECHNIQUE: CT scan of the sinuses is performed without contrast, axial images are obtained, coronal r eformatted images are also reviewed. FINDINGS: The paranasal sinuses including the frontal, ethmoid, sphenoid, and maxillary sinuses bila terally are well-aerated large mucous retention cyst or polyp in the left maxillary sinus. There is a nasal septal deviation. Very mild ethmoidal mucosal thickening.. The ostiomeatal complex is patent bilaterally on the coronal images. Visualized portion of mastoid air cells show no abnormal opacification. The globes are intact bilate rally. IMPRESSION: 1. Very mild ethmoidal chronic sinusitis enlarged left maxillary sinus polyp. The ostiomeatal complex is patent bilaterally.
== END | disposition home or self-care (01) ==
LOC: RADCTMAIN 08:39
PROVIDERS: ATTEND Internal Medicine
DX: J32.2 Chronic ethmoidal sinusitis (principal); J33.0 Polyp of nasal cavity
CPT/HCPCS: 70486

== ENCOUNTER → 2022-11-24 | Outpatient (CLI) | payer MEDICARE, OTHER ==
--- NOTE | 2022-11-24 13:16 | MM ---
Reason for Exam: Additional evaluation requested from prior study. Last mammogram was performed 1 year(s) and 1 month(s) ago. Patient History: Menarche at age 9. First Full-Term at age 15. Postmenopausal. Breast cancer, left, age 66. Breast cancer, left, age 66. Breast cancer, left, age 66. 01/10/2022, Lumpectomy on the Left side. 01/10/2022, Malignant US breast localization LT on the left side. 01/10/2022, US breast localization LT on the Left side. 10/13/2021, Malignant US biopsy breast VAD LT on the left side. 10/13/2021, Malignant US biopsy breast add'l VAD LT on the left side. Prior Study Comparison: 03/18/2020 Bilateral Screening Mammogram, [facility]. 04/02/2020 Right Diagnostic Mammogram, [facility]. 09/29/2021 Bilateral Screening Mammogram, [facility]. 10/06/2021 Left Diagnostic Mammogram, [facility]. 06/26/2022 Right MG diagnostic mammo RT w CAD, [facility]. Tissue Density: The breast tissue is heterogeneously dense. This may lower the sensitivity of mammography. Findings: Analyzed By CAD. There is new diminished size with distortion and surgical clips in the left breast from presumed interval posttreatment change. There are some scattered, rounded dystrophic calcifications bilaterally redemonstrated. Stable small 6 mm round circumscribed mass in the middle to posterior depth upper outer quadrant left breast. Benign-appearing bilateral axillary lymph nodes are redemonstrated. Overall Assessment: Probably benign, BI-RAD 3 Management: Diagnostic Mammogram of the left breast in 6 months. Precautionary short-term follow-up left breast mammogram to confirm new baseline. Results were given to the patient verbally at the time of exam. Patient should continue monthly self-breast exams. A clinical breast exam by your physician is recommended on an annual basis. This exam should not preclude additional follow-up of suspicious palpable abnormalities. Note on Ambar scores and lifetime risk: 1. A Ambar score greater than 3% is considered moderate risk. If this is the case, consider specialist referral to assess eligibility for a risk reducing agent. 2. If overall lifetime risk for the development of breast cancer is 20% or higher, the patient may qualify for future screening with alternating mammogram and breast MRI. Electronically signed and approved by: Rickey Perkins M.D.
== END | disposition home or self-care (01) ==
LOC: RADMAMWWP 12:49
PROVIDERS: ATTEND Surgery
DX: R92.8 Other abnormal and inconclusive findings on diagnostic imaging of breast (principal); Z85.3 Personal history of malignant neoplasm of breast; Z78.0 Asymptomatic menopausal state
CPT/HCPCS: 77066; G0279; 77062

== ENCOUNTER → 2023-01-05 | Outpatient (CLI) | payer MEDICARE, OTHER ==
[2023-01-05 15:11] VITALS: BP 178/72; PULSE 84; RESP 16; TEMP 98.1
--- NOTE | 2023-01-05 15:31 | P.PN ---
Subjective Progress Note Date: 01/05/23 left breast invasive lobular cancer stage IA 2021 Multifocal left breast invasive lobular carcinoma Nichelle is a 66-year-old white female status post bilateral mammogram performed on 5521. This subsequently led to an ultrasound of the left breast which revealed 2 lesions one at the 1 o'clock position which was 1.3 cm in size and a 0.4 cm lesion at the 2 o'clock position. Both underwent ultrasound-guided core biopsy on . Pathology of both sites revealed invasive lobular carcinoma. This was ER/TX positive HER-2/ranjeet negative and grade 1. The patient did not feel anything of concern in either breast. She did not complain of any nipple discharge or skin changes. She never had any breast biopsies or surgery on her breast in the past. She underwent an MRI on 11-04-21. Revealed a questionable lesion in the right breast for which an ultrasound was performed that did not show any specific lesion of concern. She declined further attempt at biopsy via MRI guidance at this time. She understands the tumor could be present but we'll continue with surveillance at her institution at this time. She would like to proceed with treatment of the left breast/lumpectomy despite the fact that his multifocal invasive lobular cancer. Nichelle underwent a left breast lumpectomy and SNB on 01-10-22, her node was negative but superior margin was (+). She underwent re-excision on 02-14-22 and margin was negative. The patient had a right breast mammogram on which was benign BIRADS 2 Oncotype was performed. The recurrent score was 14. She declined radiation therapy. She was started on anestrazole. She also was going to have genetic testing. Note Medical Oncology reviewed 09-07-22 continue anestrazole bilateral mammogram on 11-24-22 BIRAD 3 repeat left breast mammogram in 6 months again declined any attempt at biopsy of MRI lesion in the right breast At this time she is not complaining of any new lumps masses or nodules of concern in either breast. CAffiene: 3 cups/day nicotine: since 05/29 PPD chocolate: occasional hormones: none BCP: 3 years in the remote past Family History: mother: colon cancer father: Esophageal cancer sister: Brain cancer sister: lung cancer Hormonal history: Menarche:10 , breast fed: no; first born at 15 menopause: 38 BCP: 3 years hormones: none Surgical history: tubaligation left knee surgery left clavicle mass vagina Medical History: diabetes since 38 HTN high cholesterol COPD/ worse after COVID artheritis asthma Social History: nicotine: 1/2 PPD alcohol: none drugs: none - Constitutional Constitutional: Denies chills, Denies fever - EENT Eyes: denies blurred vision, denies pain Ears: deny: decreased hearing, tinnitus Ears, nose, mouth and throat: Reports headache, Denies sore throat - Breasts Breasts: bilateral: as per HPI - Cardiovascular Cardiovascular: Reports shortness of breath, Denies chest pain - Respiratory Respiratory: Reports cough - Gastrointestinal Gastrointestinal: Denies abdominal pain, Denies diarrhea, Denies nausea, Denies vomiting - Genitourinary (Female) Comment: UTI - Menstruation Menstruation: Reports postmenopausal - Musculoskeletal Musculoskeletal: Reports as per HPI - Integumentary Integumentary: Denies pruritus, Denies rash - Neurological Neurological: Reports paresthesias, Denies numbness, Denies weakness - Psychiatric Psychiatric: Denies anxiety, Denies depression - Endocrine Comment: diabetes - Hematologic/Lymphatic Comment: bruises easy - Allergic/Immunologic Allergic/Immunologic: Reports as per HPI, Reports seasonal allergies Objective - Vital Signs Vital signs: Vital Signs Temp 98.1 F 01/05/23 15:06 Pulse 84 01/05/23 15:06 Resp 16 01/05/23 15:06 BP 178/72 01/05/23 15:06 Pulse Ox 93 L 01/05/23 15:06 FiO2 Intake & Output 01/04/23 01/05/23 01/05/23 18:59 06:59 18:59 Weight 74.843 kg - Constitutional General appearance: Present: cooperative - EENT Eyes: Present: EOMI ENT: Present: hearing grossly normal - Neck Neck: Present: normal ROM - Respiratory Respiratory: bilateral: CTA - Cardiovascular Rhythm: regular - Integumentary Integumentary: Present: normal turgor - Psychiatric Psychiatric: Present: A&O x's 3, appropriate affect, intact judgment & insight - Additional findings Additional findings: Breast Exam: BRA: 44B Inspection: Well-healed scar left breast from prior mastopexy incision, bilateral grade 2 ptosis Palpation: Right breast: Multi-positional exam fibrocystic changes no dominant masses or nodules of concern Right axilla: No adenopathy of concern Left breast: Multi-positional exam fibrocystic changes no dominant masses or nodules of concern, postsurgical changes no evidence of any cancer Left axilla: No adenopathy of concern Assessment and Plan Assessment: Impression: diabetes since 38 HTN high cholesterol COPD/ worse after COVID artheritis asthma Patient status post left breast lumpectomy and sentinel node biopsy no evidence of any recurrent left breast cancer Recent right breast mammogram [id number] benign BIRADS 2 Patient presently on anastrozole tolerating this Plan: left breast mammogram April 2023 with appointment consider MRI biopsy right breast, patient declined Continue anastrozole Follow-up sooner any questions or concerns CC: DR. Adair
== END ==
LOC: WWCWWP 14:53
PROVIDERS: ATTEND Surgery
DX: C50.912 Malignant neoplasm of unspecified site of left female breast (principal); Z17.0 Estrogen receptor positive status [ER+]; E11.9 Type 2 diabetes mellitus without complications; E78.00 Pure hypercholesterolemia, unspecified; I10 Essential (primary) hypertension; J44.9 Chronic obstructive pulmonary disease, unspecified; M19.90 Unspecified osteoarthritis, unspecified site; F17.210 Nicotine dependence, cigarettes, uncomplicated; Z79.899 Other long term (current) drug therapy; Z86.16 Personal history of COVID-19; Z85.3 Personal history of malignant neoplasm of breast; Z90.12 Acquired absence of left breast and nipple; Z91.048 Other nonmedicinal substance allergy status; Z88.6 Allergy status to analgesic agent; Z79.84 Long term (current) use of oral hypoglycemic drugs

== ENCOUNTER → 2023-01-18 | Outpatient (CLI) | payer MEDICARE, OTHER ==
--- NOTE | 2023-01-18 12:52 | XR ---
EXAMINATION TYPE: XR lumbosacral spine min 4V DATE OF EXAM: 01/18/2023 CLINICAL HISTORY: pain COMPARISON: NONE TECHNIQUE: Frontal, lateral, and oblique images of the lumbar spine are obtained. FINDINGS: There are 5 lumbar type vertebral bodies identified. The lumbar spine shows satisfactory alignment without evidence of acute fracture or dislocation. Vertebral body heights are within normal limits. There is curvature convex to the left. Severe multilevel degenerative disc space narrowing a nd spondylosis. Severe facet joint arthropathy. The overlying soft tissue appears unremarkable. IMPRESSION: No acute fracture or dislocation is seen in the lumbar spine.ICD 10 NO FRACTURE, INITIAL EVALUATION
== END | disposition home or self-care (01) ==
LOC: RADXRMAIN 11:54
PROVIDERS: ATTEND Internal Medicine
DX: M54.50 Low back pain, unspecified (principal)
CPT/HCPCS: 72110

== ENCOUNTER → 2023-02-12 | Outpatient (CLI) | payer MEDICARE, OTHER ==
--- NOTE | 2023-02-12 10:39 | US ---
EXAMINATION TYPE: US kidneys/renal and bladder DATE OF EXAM: 02/12/2023 COMPARISON: US 2018 CLINICAL INDICATION: Female, 67 years old with history of R10.9 UNSPECIFIED ABDOMINAL PAIN; Bilateral flank pain EXAM MEASUREMENTS: Right Kidney: 12.1 x 4.9 x 5.2 cm Left Kidney: 11.8 x 5.5 x 6.0 cm Right Kidney: wnl Left Kidney: wnl Bladder: wnl Bilateral Jets seen: no There is no evidence for hydronephrosis at this point in time. No nephrolithiasis is seen. No brian s are identified. Cortical medullary differentiation is maintained bilaterally. The urinary bladder is anechoic. IMPRESSION: No hydronephrosis or nephrolithiasis.
== END | disposition home or self-care (01) ==
LOC: RADUSWWP 10:02
PROVIDERS: ATTEND Internal Medicine
DX: R10.9 Unspecified abdominal pain (principal)
CPT/HCPCS: 76770

== ENCOUNTER → 2023-03-14 | Outpatient (CLI) | payer MEDICARE, OTHER ==
--- NOTE | 2023-03-14 12:21 | XR ---
EXAMINATION TYPE: XR chest 2V DATE OF EXAM: 03/14/2023 COMPARISON: 04/07/2021 HISTORY: Shortness of breath TECHNIQUE: Frontal and lateral views of the chest are obtained. FINDINGS: Scattered senescent parenchymal changes noted. Hyperinflation compatible with COPD. No evidence for infiltrate. No evidence for atelectasis. Heart size is stable. Mediastinal structures are stable and grossly unremarkable. No evidence for hilar prominence. Degenerative changes dorsal spine. IMPRESSION: 1. No evidence for acute pulmonary disease.
== END | disposition home or self-care (01) ==
LOC: RADXRMAIN 11:52
PROVIDERS: ATTEND Internal Medicine
DX: R06.02 Shortness of breath (principal)
CPT/HCPCS: 71046

== ENCOUNTER → 2023-05-29 | Outpatient (CLI) | payer MEDICARE, OTHER ==
--- NOTE | 2023-05-29 09:43 | MM ---
Reason for Exam: Follow-up at short interval from prior study. Last screening mammogram was performed 7 month(s) ago. Patient History: Menarche at age 9. First Full-Term at age 15. Postmenopausal. Breast cancer, left, age 66. Breast cancer, left, age 66. Breast cancer, left, age 66. 01/10/2022, Lumpectomy on the Left side. 01/10/2022, Malignant US breast localization LT on the left side. 01/10/2022, US breast localization LT on the Left side. 10/13/2021, Malignant US biopsy breast VAD LT on the left side. 10/13/2021, Malignant US biopsy breast add'l VAD LT on the left side. Prior Study Comparison: 01/10/2022 Left MG diagnostic mammo LT wo CAD., [facility]. 06/26/2022 Right MG diagnostic mammo RT w CAD, [facility]. 11/24/2022 Bilateral MG 3D diag mammo w/cad [facility], [facility]. Tissue Density: Left: The breast tissue is heterogeneously dense. This may lower the sensitivity of mammography. Findings: Analyzed By CAD. Pattern appears stable. Scattered benign-appearing calcifications are present. Postsurgical changes are present. Surgical clips are present. No suspicious groups of microcalcifications, spiculated or lobular masses, architectural distortion or other secondary signs of malignancy are mammographically apparent. Overall Assessment: Benign, BI-RAD 2 Management: Diagnostic Mammogram of both breasts in 6 months. A negative mammogram report should not preclude additional follow up of suspicious palpable abnormalities. Patient should continue monthly self breast exam. A clinical breast exam by your physician is recommended on an annual basis and results should be correlated with mammographic findings. Electronically signed and approved by: Alexi Sierra D.O. Radiologis
== END | disposition home or self-care (01) ==
LOC: RADMAMWWP 08:52
PROVIDERS: ATTEND Surgery
DX: R92.332 Mammographic heterogeneous density, left breast (principal); Z85.3 Personal history of malignant neoplasm of breast; Z78.0 Asymptomatic menopausal state
CPT/HCPCS: 77065; G0279; 77061

== ENCOUNTER → 2023-06-01 | Outpatient (CLI) | payer MEDICARE, OTHER ==
--- NOTE | 2023-06-01 14:42 | P.PN ---
Subjective Progress Note Date: 06/01/23 Principal diagnosis: left breast invasive lobular cancer stage IA 2021 left breast invasive lobular cancer stage IA 2021 Multifocal left breast invasive lobular carcinoma Nichelle is a 68-year-old white female status post bilateral mammogram performed on 5521. This subsequently led to an ultrasound of the left breast which revealed 2 lesions one at the 1 o'clock position which was 1.3 cm in size and a 0.4 cm lesion at the 2 o'clock position. Both underwent ultrasound-guided core biopsy on . Pathology of both sites revealed invasive lobular carcinoma. This was ER/TX positive HER-2/ranjeet negative and grade 1. The patient did not feel anything of concern in either breast. She did not complain of any nipple discharge or skin changes. She never had any breast biopsies or surgery on her breast in the past. She underwent an MRI on 11-04-21. Revealed a questionable lesion in the right breast for which an ultrasound was performed that did not show any specific lesion of concern. She declined further attempt at biopsy via MRI guidance at this time. She understands the tumor could be present but we'll continue with surveillance at her institution at this time. She would like to proceed with treatment of the left breast/lumpectomy despite the fact that his multifocal invasive lobular cancer. Nichelle underwent a left breast lumpectomy and SNB on 01-10-22, her node was negative but superior margin was (+). She underwent re-excision on 02-14-22 and margin was negative. The patient had a right breast mammogram on which was benign BIRADS 2 Oncotype was performed. The recurrent score was 14. She declined radiation therapy. She was started on anestrazole. She also was going to have genetic testing. Note Medical Oncology reviewed 04-26-23 continue anestrazole bilateral mammogram on 11-24-22 BIRAD 3 repeat left breast mammogram in 6 months; left breast mammogram 05-29-23 BIRAD 2 again declined any attempt at biopsy of MRI lesion in the right breast wants to wait until next mammogram At this time she is not complaining of any new lumps masses or nodules of concern in either breast. CAffiene: 3 cups/day nicotine: since 15 /2 PPD chocolate: occasional hormones: none BCP: 3 years in the remote past Family History: mother: colon cancer father: Esophageal cancer sister: Brain cancer sister: lung cancer Hormonal history: Menarche:10 , breast fed: no; first born at 15 menopause: 38 BCP: 3 years hormones: none Surgical history: tubaligation left knee surgery left clavicle mass vagina 01-10-22 left breast lumpectomy and SNB Medical History: diabetes since 38 HTN high cholesterol COPD/ worse after COVID artheritis asthma caugh at this time/sinus infection Social History: nicotine: < 1/2 PPD alcohol: none drugs: none - Constitutional Constitutional: Denies chills, Denies fever - EENT Eyes: denies blurred vision, denies pain Ears: deny: decreased hearing, tinnitus Ears, nose, mouth and throat: Reports headache, Denies sore throat - Breasts Breasts: bilateral: as per HPI - Cardiovascular Cardiovascular: Reports shortness of breath, Denies chest pain - Respiratory Respiratory: Reports cough - Gastrointestinal Gastrointestinal: Denies abdominal pain, Denies diarrhea, Denies nausea, Denies vomiting - Genitourinary (Female) Comment: UTI - Menstruation Menstruation: Reports postmenopausal - Musculoskeletal Musculoskeletal: Reports as per HPI - Integumentary Integumentary: Denies pruritus, Denies rash - Neurological Neurological: Reports paresthesias, Denies numbness, Denies weakness - Psychiatric Psychiatric: Denies anxiety, Denies depression - Endocrine Comment: diabetes - Hematologic/Lymphatic Comment: bruises easy - Allergic/Immunologic Allergic/Immunologic: Reports as per HPI, Reports seasonal allergies Objective - Constitutional General appearance: Present: cooperative - EENT Eyes: Present: EOMI ENT: Present: hearing grossly normal - Neck Neck: Present: normal ROM - Respiratory Respiratory: bilateral: CTA - Cardiovascular Heart sounds: normal: S1, S2 - Integumentary Integumentary: Present: normal turgor - Musculoskeletal Musculoskeletal: Present: gait normal - Psychiatric Psychiatric: Present: A&O x's 3, appropriate affect, intact judgment & insight - Additional findings Additional findings: Breast Exam: BRA: 44B Inspection: Well-healed scar left breast from prior mastopexy incision, bilateral grade 2 ptosis Palpation: Right breast: Multi-positional exam fibrocystic changes no dominant masses or nodules of concern Right axilla: No adenopathy of concern Left breast: Multi-positional exam fibrocystic changes no dominant masses or nodules of concern, postsurgical changes no evidence of any cancer Left axilla: No adenopathy of concern Assessment and Plan Assessment: Impression: diabetes since 38 HTN high cholesterol COPD/ worse after COVID artheritis asthma Patient status post left breast lumpectomy and sentinel node biopsy no evidence of any recurrent left breast cancer bilateral mammogram 11-24-22 BIRAD 3 repeat left breast mammogram in 6 months Patient presently on anastrozole tolerating this left breast mammogram 05-29-23 BIRAD 2 Plan: left breast mammogram 05-29-23 BIRAD 2; due for bilateral in 6 months with appointmnet at that time consider MRI biopsy right breast, patient declined on 06-01-23 states she will see what mammogram in 6 months shows Continue anastrozole Follow-up sooner any questions or concerns CC: DR. Adair
== END ==
LOC: WWCWWP 14:14
PROVIDERS: ATTEND Surgery
DX: Z12.31 Encounter for screening mammogram for malignant neoplasm of breast (principal); C50.912 Malignant neoplasm of unspecified site of left female breast; E11.9 Type 2 diabetes mellitus without complications; I10 Essential (primary) hypertension; E78.00 Pure hypercholesterolemia, unspecified; M19.90 Unspecified osteoarthritis, unspecified site; J44.89 Other specified chronic obstructive pulmonary disease; F17.200 Nicotine dependence, unspecified, uncomplicated; U07.1 COVID-19; Z17.0 Estrogen receptor positive status [ER+]; Z91.09 Other allergy status, other than to drugs and biological substances; Z88.6 Allergy status to analgesic agent; Z79.84 Long term (current) use of oral hypoglycemic drugs; Z79.899 Other long term (current) drug therapy

== ENCOUNTER 2023-08-05 09:46 | Inpatient (IN) | payer MEDICARE, OTHER ==
--- NOTE | 2023-08-05 10:00 | ED ---
General Adult HPI - General Chief complaint: Shortness of Breath Stated complaint: SOB Time Seen by Provider: 08/05/23 09:50 Source: patient, RN notes reviewed, old records reviewed Mode of arrival: ambulatory Limitations: no limitations - History of Present Illness Initial comments: This is a 68-year-old female who presents to the emergency department she has a past medical history of COPD and continues to smoke. Patient comes in today stating for the last couple of days she has had difficulty breathing and some left-sided lateral chest pain with deep breathing or coughing. Patient states her cough is definitely getting worse. Patient denies fever or chills. Patient denies any abdominal pain patient has nausea vomiting. Patient has a headache patient has numbness or weakness - Related Data Home Medications Medication Instructions Recorded Confirmed Lovastatin [Mevacor] 40 mg PO W/SUPPER 07/26/16 06/30/22 metFORMIN HCL [Glucophage] 1,000 mg PO BID 07/26/16 06/30/22 Cholecalciferol [Vitamin D3 (25 25 mcg PO DAILY 09/25/16 06/30/22 Mcg = 1000 Iu)] Fluticasone Furoate [Arnuity 1 puff INHALATION RT-DAILY 02/28/21 06/30/22 Ellipta] Losartan [Cozaar] 50 mg PO DAILY 02/28/21 06/30/22 Metoprolol Tartrate [Lopressor] 50 mg PO BID 02/28/21 06/30/22 hydroCHLOROthiazide [Hydrodiuril] 25 mg PO BID 02/28/21 06/30/22 Ipratropium-Albuterol Nebulize 3 ml INHALATION DIRECTED PRN 01/05/22 06/30/22 [Duoneb 0.5 mg-3 mg/3 ml Soln] Anastrozole 1 mg PO DAILY 06/30/22 06/30/22 Allergies Allergy/AdvReac Type Severity Reaction Status Date / Time nickel Allergy Rash/Hives Verified 08/05/23 09:51 aspirin AdvReac Nausea & Verified 08/05/23 09:51 Vomiting Review of Systems ROS Statement: Those systems with pertinent positive or pertinent negative responses have been documented in the HPI. ROS Other: All systems not noted in ROS Statement are negative. Past Medical History Past Medical History: Asthma, Cancer, COPD, Diabetes Mellitus, Hyperlipidemia, Hypertension, Osteoarthritis (OA) Additional Past Medical History / Comment(s): lower back & neck pain , sinus headaches., hospitalized for covid (feb 2021)., new diagnosis left breast cancer., bladder leakage-wears pads. History of Any Multi-Drug Resistant Organisms: None Reported Past Surgical History: Orthopedic Surgery, Tonsillectomy, Tubal Ligation Additional Past Surgical History / Comment(s): hemorrhoidectomy, Cataracts. Missing left knee cap d/t accident in the s. PAIN CLINIC PROCEDURES, bone removed left shoulder., Left Breast Lumpectomy with Sentinal node bx. (01/10/22) Past Anesthesia/Blood Transfusion Reactions: No Reported Reaction Past Psychological History: No Psychological Hx Reported Smoking Status: Current every day smoker Past Alcohol Use History: None Reported Past Drug Use History: None Reported - Past Family History Mother Family Medical History: Cancer Additional Family Medical History / Comment(s): Mother @ 80 from renal failure secondary to complication from diabetes. Father Family Medical History: Cancer Additional Family Medical History / Comment(s): Father at age 58 from esophageal cancer Sister(s) Family Medical History: Cancer Additional Family Medical History / Comment(s): Patient has 2 sisters. One from brain cancer and one from lung cancer. Brother(s) Family Medical History: Cancer Additional Family Medical History / Comment(s): Patient has 2 brothers one from combinations of diabetes. One is alive with no major medical problems. Daughter(s) Family Medical History: No Reported History Additional Family Medical History / Comment(s): . General Exam - General Exam Comments Initial Comments: GENERAL: Patient is well-developed and well-nourished. Patient is nontoxic and well- hydrated and is in mild distress. 87% on room air ENT: Neck is soft and supple. No significant lymphadenopathy is noted. Oropharynx is clear. Moist mucous membranes. Neck has full range of motion without el iciting any pain. EYES: The sclera were anicteric and conjunctiva were pink and moist. Extraocular movements were intact and pupils were equal round and reactive to light. Eyelids were unremarkable. PULMONARY: Unlabored respirations. Patient has diminished breath sounds in both bases and has crackles in the left side CARDIOVASCULAR: There is a regular rate and rhythm without any murmurs gallops or rubs. ABDOMEN: Soft and nontender with normal bowel sounds. SKIN: Skin is clear with no lesions or rashes and otherwise unremarkable. NEUROLOGIC: Patient is alert and oriented x3. Cranial nerves II through XII are grossly intact. Motor and sensory are also intact. Normal speech, volume and content. Symmetrical smile. MUSCULOSKELETAL: Normal extremities with adequate strength and full range of motion. LYMPHATICS: No significant lymphadenopathy is noted PSYCHIATRIC: Normal psychiatric evaluation. Limitations: no limitations Course Vital Signs 08/05/23 08/05/23 08/05/23 09:49 09:56 10:02 Temperature 98.8 F 98.9 F Pulse Rate 123 H 103 H Respiratory 26 H 22 22 Rate Blood Pressure 175/73 122/76 O2 Sat by Pulse 87 L 98 Oximetry 08/05/23 08/05/23 10:40 11:00 Temperature Pulse Rate 93 93 Respiratory 28 H 21 Rate Blood Pressure 127/56 134/59 O2 Sat by Pulse 98 98 Oximetry Medical Decision Making - Medical Decision Making EKG is interpreted by myself but EKG shows a sinus rhythm at 99 bpm NC interval 152 QRS is 97 QT interval is 343 QTc is 399. Patient's EKG shows no ST segment ovation or depression Was pt. sent in by a medical professional or institution (, PA, GAME PROGRAMMER, urgent care, hospital, or correction...) When possible be specific @ -No Did you speak to anyone other than the patient for history (EMS, parent, family, police, friend...)? What history was obtained from this source @ -No Did you review nursing and triage notes (agree or disagree)? Why? @ -I reviewed and agree with nursing and triage notes Were old charts reviewed (outside hosp., previous admission, EMS record, old EKG, old radiological studies, urgent care reports/EKG's, correction records)? Report findings @ -I reviewed prior notes prior charts and prior lab work on this patient Differential Diagnosis (chest pain, altered mental status, abdominal pain women, abdominal pain men, vaginal bleeding, weakness, fever, dyspnea, syncope, headache, dizziness, GI bleed, back pain, seizure, CVA, palpatations, mental health, musculoskeletal)? @ -Differential Dyspnea: Coronary syndrome, arrhythmia, tamponade, asthma, COPD, pulmonary embolism, pneumonia, pneumothorax, pulmonary effusion, anaphylaxis, diabetic ketoacidosis, flailed chest, pulmonary contusion, diaphragmatic rupture, anemia, neuromuscular, this is not meant to be an all-inclusive list. EKG interpreted by me (3pts min.). @ -As above X-rays interpreted by me (1pt min.). @ -Chest x-ray showed no acute abnormality CT interpreted by me (1pt min.). @ -None done U/S interpreted by me (1pt. min.). @ -None done What testing was considered but not performed or refused? (CT, X-rays, U/S, labs)? Why? @ -None What meds were considered but not given or refused? Why? @ -None Did you discuss the management of the patient with other professionals (professionals i.e. DrChloe, PA, GAME PROGRAMMER, lab, RT, psych nurse, social media sr strategy manager, locomotive firer/fireman, teacher, ict help desk officer, case packer and sealer)? Give summary @ -I spoke with Dr. Adair on this patient and he agreed admit the patient Was smoking cessation discussed for >3mins.? @ -No Was critical care preformed (if so, how long)? @ -35 minutes Were there social determinants of health that impacted care today? How? (Homelessness, low income, unemployed, alcoholism, drug addiction, transportation, low edu. Level, literacy, decrease access to med. care, [facility], rehab)? @ -No Was there de-escalation of care discussed even if they declined (Discuss DNR or withdrawal of care, Hospice)? DNR status @ -No What co-morbidities impacted this encounter? (DM, HTN, Smoking, COPD, CAD, Cancer, CVA, ARF, Chemo, Hep., AIDS, mental health diagnosis, sleep apnea, morbid obesity)? @ -None Was patient admitted / discharged? Hospital course, mention meds given and route, prescriptions, significant lab abnormalities, going to OR and other pertinent info. @ -Patient was not experiencing any chest pain except with coughing. Patient's troponin was elevated at 0.7. Patient was started on heparin patient also received 2 breathing treatments steroids and antibiotics for the COPD exacerbation. I spoke with Dr. Adair he agreed to admit the patient admitted the patient I wrote admitting orders I consult the cardiology Undiagnosed new problem with uncertain prognosis? @ -No Drug Therapy requiring intensive monitoring for toxicity (Heparin, Nitro, Insulin, Cardizem)? @ -No Were any procedures done? @ -No Diagnosis/symptom? @ -COPD exacerbation Acute, or Chronic, or Acute on Chronic? @ -Acute Uncomplicated (without systemic symptoms) or Complicated (systemic symptoms)? @ -Complicated Side effects of treatment? @ -No Exacerbation, Progression, or Severe Exacerbation? @ -No Poses a threat to life or bodily function? How? (Chest pain, USA, DE, pneumonia, PE, COPD, DKA, ARF, appy, cholecystitis, CVA, Diverticulitis, Homicidal, King icidal, threat to staff... and all critical care pts) @ -Yes this could lead to hypoxia and endorgan dysfunction Diagnosis/symptom? @ -NSTEMI Acute, or Chronic, or Acute on Chronic? @ -Acute Uncomplicated (without systemic symptoms) or Complicated (systemic symptoms)? @ -Complicated Side effects of treatment? @ -None Exacerbation, Progression, or Severe Exacerbation] @ -No Poses a threat to life or bodily function? @ -Yes this could lead to an DE and significant cardiac dysfunction - Lab Data Result diagrams: 08/05/23 10:05 08/05/23 10:05 Lab Results 08/05/23 08/05/23 08/05/23 Range/Units 10:05 10:05 10:05 WBC 6.5 (3.8-10.6) k/uL RBC 4.49 (3.80-5.40) m/uL Hgb 13.2 (11.4-16.0) gm/dL Hct 40.0 (34.0-46.0) % MCV 89.0 (80.0-100.0) fL MCH 29.4 (25.0-35.0) pg MCHC 33.0 (31.0-37.0) g/dL RDW 14.2 (11.5-15.5) % Plt Count 211 (150-450) k/uL MPV 8.4 Neutrophils % 84 % Lymphocytes % 9 % Monocytes % 5 % Eosinophils % 0 % Basophils % 0 % Neutrophils # 5.5 (1.3-7.7) k/uL Lymphocytes # 0.6 L (1.0-4.8) k/uL Monocytes # 0.3 (0-1.0) k/uL Eosinophils # 0.0 (0-0.7) k/uL Basophils # 0.0 (0-0.2) k/uL PT 9.9 L (10.0-12.5) sec INR 0.9 (<1.2) APTT 25.6 (22.0-30.0) sec Sodium 137 (137-145) mmol/L Potassium 5.2 H (3.5-5.1) mmol/L Chloride 101 (98-107) mmol/L Carbon Dioxide 24 (22-30) mmol/L Anion Gap 12 mmol/L BUN 35 H (7-17) mg/dL Creatinine 1.00 (0.52-1.04) mg/dL Est GFR (CKD-EPI)AfAm 66 (>60 ml/min/1.73 sqM) Est GFR (CKD-EPI)NonAf 58 (>60 ml/min/1.73 sqM) Glucose 249 H (74-99) mg/dL Plasma Lactic Acid Yo (0.7-2.0) mmol/L Calcium 9.3 (8.4-10.2) mg/dL Magnesium 1.6 (1.6-2.3) mg/dL Total Bilirubin 0.4 (0.2-1.3) mg/dL AST 35 (14-36) U/L ALT 20 (4-34) U/L Alkaline Phosphatase 88 (38-126) U/L Troponin I (0.000-0.034) ng/mL NT-Pro-B Natriuret Pep 5060 pg/mL Total Protein 7.1 (6.3-8.2) g/dL Albumin 4.2 (3.5-5.0) g/dL Influenza Type A (PCR) (Not Detectd) Influenza Type B (PCR) (Not Detectd) RSV (PCR) (Not Detectd) SARS-CoV-2 (PCR) (Not Detectd) 08/05/23 08/05/23 08/05/23 Range/Units 10:05 10:05 10:05 WBC (3.8-10.6) k/uL RBC (3.80-5.40) m/uL Hgb (11.4-16.0) gm/dL Hct (34.0-46.0) % MCV (80.0-100.0) fL MCH (25.0-35.0) pg MCHC (31.0-37.0) g/dL RDW (11.5-15.5) % Plt Count (150-450) k/uL MPV Neutrophils % % Lymphocytes % % Monocytes % % Eosinophils % % Basophils % % Neutrophils # (1.3-7.7) k/uL Lymphocytes # (1.0-4.8) k/uL Monocytes # (0-1.0) k/uL Eosinophils # (0-0.7) k/uL Basophils # (0-0.2) k/uL PT (10.0-12.5) sec INR (<1.2) APTT (22.0-30.0) sec Sodium (137-145) mmol/L Potassium (3.5-5.1) mmol/L Chloride (98-107) mmol/L Carbon Dioxide (22-30) mmol/L Anion Gap mmol/L BUN (7-17) mg/dL Creatinine (0.52-1.04) mg/dL Est GFR (CKD-EPI)AfAm (>60 ml/min/1.73 sqM) Est GFR (CKD-EPI)NonAf (>60 ml/min/1.73 sqM) Glucose (74-99) mg/dL Plasma Lactic Acid Yo 2.3 H* (0.7-2.0) mmol/L Calcium (8.4-10.2) mg/dL Magnesium (1.6-2.3) mg/dL Total Bilirubin (0.2-1.3) mg/dL AST (14-36) U/L ALT (4-34) U/L Alkaline Phosphatase (38-126) U/L Troponin I 0.786 H* (0.000-0.034) ng/mL NT-Pro-B Natriuret Pep pg/mL Total Protein (6.3-8.2) g/dL Albumin (3.5-5.0) g/dL Influenza Type A (PCR) Detected A (Not Detectd) Influenza Type B (PCR) Not Detected (Not Detectd) RSV (PCR) Not Detected (Not Detectd) SARS-CoV-2 (PCR) Not Detected (Not Detectd) Critical Care Time Critical Care Time: Yes Total Critical Care Time: 35 Disposition Clinical Impression: Acute exacerbation of chronic obstructive pulmonary disease, NSTEMI (non-ST elevated myocardial infarction) Disposition: ADMITTED IP TO THIS HOSP Referrals: Sumeet Adair MD [Primary Care Provider] - 1-2 days Time of Disposition: 11:16
[2023-08-05] MEDS: methylPREDNISolone SOD SUCCI 125 MG/2 ML VIAL IV STA (10:19)
[2023-08-05 10:20] LABS: Basophils % (A) 0 %; Eosinophils % (A) 0 %; HGB 13.2 gm/dL (11.4-16.0); Lymphocytes # (A) 0.6 k/uL (1.0-4.8); Lymphocytes % (A) 9 %; MCH 29.4 pg (25.0-35.0); Mean Platelet Volume 8.4; Monocytes # (A) 0.3 k/uL (0-1.0); Monocytes % (A) 5 %; Neutrophils # (A) 5.5 k/uL (1.3-7.7); Neutrophils % (A) 84 %; Platelet Count 211 k/uL (150-450); RBC 4.49 m/uL (3.80-5.40); RDW 14.2 % (11.5-15.5); WBC 6.5 k/uL (3.8-10.6)
[2023-08-05] MEDS: cefTRIAXone IN SWFI 1,000 MG/10 ML SYRINGE IVP STA ×2 (10:36→10:41)
[2023-08-05 10:41] LABS: INR 0.9 (<1.2); Partial Thromboplastin Time 25.6 sec (22.0-30.0); Prothrombin Time 9.9 sec (10.0-12.5)
[2023-08-05 10:43] LABS: ALT 20 U/L (4-34); AST 35 U/L (14-36); African American GFR (CKD) 66 (>60 ml/min/1.73 sqM); Albumin 4.2 g/dL (3.5-5.0); Alkaline Phosphatase 88 U/L (38-126); Anion Gap 12 mmol/L; Blood Urea Nitrogen 35 mg/dL (7-17); Calcium 9.3 mg/dL (8.4-10.2); Carbon Dioxide 24 mmol/L (22-30); Chloride 101 mmol/L (98-107); Glucose 249 mg/dL (74-99); Magnesium 1.6 mg/dL (1.6-2.3); Non-African American GFR(CKD) 58 (>60 ml/min/1.73 sqM); Potassium 5.2 mmol/L (3.5-5.1); Sodium 137 mmol/L (137-145); Total Bilirubin 0.4 mg/dL (0.2-1.3); Total Protein 7.1 g/dL (6.3-8.2)
--- NOTE | 2023-08-05 10:44 | XR ---
EXAMINATION TYPE: XR chest 2V DATE OF EXAM: 08/05/2023 COMPARISON: 03/14/2023 HISTORY: 68 year-old female shortness of breath, difficulty breathing TECHNIQUE: AP and lateral views FINDINGS: Heart normal size. Mild atherosclerotic arch calcifications. Similar bilateral hilar prominence. We n ote prominent lymph nodes on the patient's 02/28/2021 CT. Hyperinflation. No consolidation or pleural effusion. IMPRESSION: 1. COPD with moderate emphysema. 2. Similar bilateral hilar enlargement. We note prominent lymph nodes on the patient's 02/28/[address] CT[address] follow-up to ensure stability of these nodes. Granulomatous disease such as sarcoidosis and connective tissue disorders, and indolent lymphoma are some differential considerati ons. 3. Otherwise, no acute process seen.
[2023-08-05 10:53] LABS: NT-Pro-B-Type Natriuretic Pept 5060 pg/mL
[2023-08-05] MEDS ORDERED: NALOXONE 0.4 MG/ML 1 ML VIAL IVP PRN (11:17)
[2023-08-05] MEDS ORDERED: IPRATROPIUM-ALBUTEROL 3 ML NEB INHALATION PRN (11:17)
[2023-08-05] MEDS ORDERED: DEXTROSE 50% SYRINGE 50 ML IVP PRN ×2 (11:25)
[2023-08-05] MEDS: IPRATROPIUM 0.5 MG/2.5 ML NEBU INHALATION STA (11:29)
[2023-08-05] MEDS: ALBUTEROL NEBULIZED 2.5 MG/3 ML INHALATION STA (11:29)
--- NOTE | 2023-08-05 11:34 | P.HPIM ---
History of Present Illness H&P Date: 08/05/23 This is a 68-year-old female patient who presented to the ER with complaints of increased shortness of breath and cough for the past few days along with left- sided lateral chest pain. Patient has a history of COPD and nicotine dependence. Additional medical history includes asthma, diabetes mellitus, hyperlipidemia, hypertension, osteoporosis, chronic back pain, left breast cancer. Chest x-ray completed showing COPD with moderate emphysema. Small bilateral hilar enlargement we no prominent lymph nodes on the patient's 02/29/[address] follow-up granulomatous disease such as separate doses and connective tissue disorders or some differential considerations. Lab work revealing influenza A positive. Troponin 0.786, lactic acid 2.3. At this time patient will be admitted. Heparin drip ordered per emergency department due to elevated troponin. Patient started on IV Solu- Medrol and azithromycin. Tamiflu also started. Pulmonary and cardiology services consulted repeat labs ordered. Current vital signs temp 98.9, heart rate 93, respiratory rate 22, blood pressure 122/76 with pulse ox 98% on 3 L Review of Systems please refer to HPI otherwise unremarkable Past Medical History Past Medical History: Asthma, Cancer, COPD, Diabetes Mellitus, Hyperlipidemia, Hypertension, Osteoarthritis (OA) Additional Past Medical History / Comment(s): lower back & neck pain , sinus headaches., hospitalized for covid (feb 2021)., new diagnosis left breast cancer., bladder leakage-wears pads. History of Any Multi-Drug Resistant Organisms: None Reported Past Surgical History: Orthopedic Surgery, Tonsillectomy, Tubal Ligation Additional Past Surgical History / Comment(s): hemorrhoidectomy, Cataracts. Mi ssing left knee cap d/t accident in the s. PAIN CLINIC PROCEDURES, bone removed left shoulder., Left Breast Lumpectomy with Sentinal node bx. (01/10/22) Past Anesthesia/Blood Transfusion Reactions: No Reported Reaction Past Psychological History: No Psychological Hx Reported Smoking Status: Current every day smoker Past Alcohol Use History: None Reported Past Drug Use History: None Reported - Past Family History Mother Family Medical History: Cancer Additional Family Medical History / Comment(s): Mother @ 80 from renal failure secondary to complication from diabetes. Father Family Medical History: Cancer Additional Family Medical History / Comment(s): Father at age 58 from esophageal cancer Sister(s) Family Medical History: Cancer Additional Family Medical History / Comment(s): Patient has 2 sisters. One from brain cancer and one from lung cancer. Brother(s) Family Medical History: Cancer Additional Family Medical History / Comment(s): Patient has 2 brothers one from combinations of diabetes. One is alive with no major medical problems. Daughter(s) Family Medical History: No Reported History Additional Family Medical History / Comment(s): . Medications and Allergies Home Medications Medication Instructions Recorded Confirmed Type Lovastatin [Mevacor] 40 mg PO W/SUPPER 07/26/16 06/30/22 History metFORMIN HCL [Glucophage] 1,000 mg PO BID 07/26/16 06/30/22 History Cholecalciferol [Vitamin D3 (25 25 mcg PO DAILY 09/25/16 06/30/22 History Mcg = 1000 Iu)] Fluticasone Furoate [Arnuity 1 puff INHALATION RT-DAILY 02/28/21 06/30/22 History Ellipta] Losartan [Cozaar] 50 mg PO DAILY 02/28/21 06/30/22 History Metoprolol Tartrate [Lopressor] 50 mg PO BID 02/28/21 06/30/22 History hydroCHLOROthiazide [Hydrodiuril] 25 mg PO BID 02/28/21 06/30/22 History Ipratropium-Albuterol Nebulize 3 ml INHALATION DIRECTED PRN 01/05/22 06/30/22 History [Duoneb 0.5 mg-3 mg/3 ml Soln] Anastrozole 1 mg PO DAILY 06/30/22 06/30/22 History Allergies Allergy/AdvReac Type Severity Reaction Status Date / Time nickel Allergy Rash/Hives Verified 08/05/23 09:51 aspirin AdvReac Nausea & Verified 08/05/23 09:51 Vomiting Physical Exam Vitals: Vital Signs Temp Pulse Resp BP Pulse Ox 08/05/23 11:00 93 21 134/59 98 08/05/23 10:40 93 28 H 127/56 98 08/05/23 10:02 98.9 F 103 H 22 122/76 98 08/05/23 09:56 22 08/05/23 09:49 98.8 F 123 H 26 H 175/73 87 L Intake and Output 08/04/23 08/05/23 08/05/23 21:59 06:59 14:59 Other: Weight 74.389 kg Head normocephalic Neck supple Lungs diminished sounds bilaterally Heart regular rate and rhythm S1-S2, no rub or gallop Abdomen is soft nontender nondistended positive bowel sounds no hepatosplenomegaly Extremities no edema Neuro alert and orientated to 3 Results CBC & Chem 7: 08/05/23 10:05 08/05/23 10:05 Labs: Abnormal Lab Results - Last 24 Hours (Table) 08/05/23 08/05/23 08/05/23 Range/Units 10:05 10:05 10:05 Lymphocytes # 0.6 L (1.0-4.8) k/uL PT 9.9 L (10.0-12.5) sec Potassium 5.2 H (3.5-5.1) mmol/L BUN 35 H (7-17) mg/dL Glucose 249 H (74-99) mg/dL Plasma Lactic Acid Yo (0.7-2.0) mmol/L Troponin I (0.000-0.034) ng/mL Influenza Type A (PCR) (Not Detectd) 08/05/23 08/05/23 08/05/23 Range/Units 10:05 10:05 10:05 Lymphocytes # (1.0-4.8) k/uL PT (10.0-12.5) sec Potassium (3.5-5.1) mmol/L BUN (7-17) mg/dL Glucose (74-99) mg/dL Plasma Lactic Acid Yo 2.3 H* (0.7-2.0) mmol/L Troponin I 0.786 H* (0.000-0.034) ng/mL Influenza Type A (PCR) Detected A (Not Detectd) Assessment and Plan Assessment: 1. Increased shortness breath and cough 2. Influenza A positive 3. Positive troponins 4. Acute COPD exacerbation 5. Lactic acidosis 6. Underlying history of diabetes mellitus 7. History of essential hypertension 8. Ongoing nicotine dependence 9. History of hyperlipidemia 10. History of COPD 11. Left breast cancer DVT prophylaxis heparin drip. GI prophylaxis Protonix Cardiology and pulmonary service is consulted Patient started IV steroids and antibiotic Patient started on IV heparin Patient started on Tamiflu Repeat labs ordered Time with Patient: Greater than 30 (Greater than 60% of the total time spent in counseling and coordination of care)
[2023-08-05] MEDS: IPRATROPIUM-ALBUTEROL 3 ML NEB INHALATION SCH (11:43)
[2023-08-05] MEDS: HEPARIN SODIUM 1,000 UN/ML (10ML VL) IV ONE (11:51)
[2023-08-05] MEDS: HEPARIN SOD,PORK IN 0.45% NACL 25,000 UNIT in 0.45% NACL 1 250ML.BAG IV SCH (11:51)
[2023-08-05 12:25] LABS: Glucose,Whole Blood 230 mg/dL (70-110)
[2023-08-05] MEDS: INSULIN ASPART (NovoLOG) 100 UNIT/ML VIAL SQ SCH (12:42)
[2023-08-05] MEDS ORDERED: FLUTICASONE 50MCG/SPRAY NASAL 16GM EA NOSTRIL PRN (14:45)
--- NOTE | 2023-08-05 14:59 | P.CNPUL ---
History of Present Illness Consult date: 08/05/23 Requesting physician: Sumeet Adair Reason for consult: dyspnea Chief complaint: Shortness of breath, weakness, poor appetite History of present illness: This is a 68-year-old female patient with a history of diabetes mellitus, hypertension, hyperlipidemia, chronic obstructive pulmonary disease, chronic and ongoing tobacco dependence of greater than 50 years. She presented here to the emergency room this morning with a 1 week history of shortness of breath, cough, chills, headache, poor appetite worsening over the past several days. She also had some left-sided chest discomfort. Chest x-ray shows evidence of COPD with moderate emphysema. Some similar bilateral hilar enlargement noted on previous exam as far back as February 2021. Granulomatous disease versus sarcoidosis and connective tissue disorders within the differential. Otherwise, no acute pulmonary process. White count 6.5. Hemoglobin 13.2. Platelets 211. INR 0.9. Sodium 137. Potassium 5.2. Bicarb 24. BUN 35. Creatinine 1.00. Glucose 249. Initial lactic 2.3, currently 1.4. Troponin 0.786, 0.926. proBNP 5060. Viral screen positive for influenza A. She is seen today in consultation on the selective care unit. She is currently up ambulating in her room. Awake and alert in no acute distress. She denies any worsening shortness of breath, cough or congestion. No chest pain currently. She has been initiated on a heparin drip. Continued O2 saturations in the 90s on 3 L/min per nasal cannula. Afebr ile. Hemodynamically stable. Review of Systems REVIEW OF SYSTEMS: CONSTITUTIONAL: Positive for generalized weakness, denies any recent significant weight loss or weight gain. EYES: Denies change in vision. EARS, NOSE, MOUTH, THROAT: Denies headaches, denies sore throat. CARDIOVASCULAR: Positive for chest pain, no palpitations or syncopal episodes. RESPIRATORY: Positive for shortness of breath, cough, congestion no hemoptysis. GASTROINTESTINAL: Denies change in appetite, denies abdominal pain GENITOURINARY: Denies hematuria, denies infections. MUSKULOSKELETAL: Denies pain, denies swelling. INTEGUMENTARY: Denies rash, denies eczema. NEUROLOGICAL: Denies recent memory loss, no recent seizure activity. PSYCHIATRIC: Denies anxiety, denies depression. HEMATOLOGIC/LYMPHATIC: Denies anemia, denies enlarged lymph nodes. Past Medical History Past Medical History: Asthma, Cancer, COPD, Diabetes Mellitus, Hyperlipidemia, Hypertension, Osteoarthritis (OA) Additional Past Medical History / Comment(s): lower back & neck pain , sinus headaches., hospitalized for covid (feb 2021)., new diagnosis left breast cancer., bladder leakage-wears pads. History of Any Multi-Drug Resistant Organisms: None Reported Past Surgical History: Orthopedic Surgery, Tonsillectomy, Tubal Ligation Additional Past Surgical History / Comment(s): hemorrhoidectomy, Cataracts. Missing left knee cap d/t accident in the . PAIN CLINIC PROCEDURES, bone removed left shoulder., Left Breast Lumpectomy with Sentinal node bx. (01/10/22) Past Anesthesia/Blood Transfusion Reactions: No Reported Reaction Past Psychological History: No Psychological Hx Reported Smoking Status: Current every day smoker Past Alcohol Use History: None Reported Past Drug Use History: None Reported - Past Family History Mother Family Medical History: Cancer Additional Family Medical History / Comment(s): Mother @ 80 from renal failure secondary to complication from diabetes. Father Family Medical History: Cancer Additional Family Medical History / Comment(s): Father at age 58 from esophageal cancer Sister(s) Family Medical History: Cancer Additional Family Medical History / Comment(s): Patient has 2 sisters. One from brain cancer and one from lung cancer. Brother(s) Family Medical History: Cancer Additional Family Medical History / Comment(s): Patient has 2 brothers one from combinations of diabetes. One is alive with no major medical problems. Daughter(s) Family Medical History: No Reported History Additional Family Medical History / Comment(s): . Medications and Allergies Home Medications Medication Instructions Recorded Confirmed Type Lovastatin [Mevacor] 40 mg PO W/SUPPER 07/26/16 08/05/23 History metFORMIN HCL [Glucophage] 1,000 mg PO BID 07/26/16 08/05/23 History Fluticasone Furoate [Arnuity 1 puff INHALATION RT-DAILY 02/28/21 08/05/23 History Ellipta] Losartan [Cozaar] 50 mg PO DAILY 02/28/21 08/05/23 History Metoprolol Tartrate [Lopressor] 50 mg PO BID 02/28/21 08/05/23 History hydroCHLOROthiazide [Hydrodiuril] 25 mg PO BID 02/28/21 08/05/23 History Anastrozole 1 mg PO DAILY 06/30/22 08/05/23 History Albuterol Sulfate [Albuterol 1 puff PO RT-Q4H 08/05/23 08/05/23 History Sulfate Hfa] Fluticasone Nasal [place] [Flonase 1 spray EA NOSTRIL DAILY PRN 08/05/23 08/05/23 History Nasal [place]] Glimepiride [Amaryl] 2 mg PO DAILY 08/05/23 08/05/23 History Allergies Allergy/AdvReac Type Severity Reaction Status Date / Time nickel Allergy Rash/Hives Verified 08/05/23 09:51 aspirin AdvReac Nausea & Verified 08/05/23 09:51 Vomiting Physical Exam Vitals: Vital Signs Temp Pulse Resp BP Pulse Ox 08/05/23 11:47 96 08/05/23 11:30 88 08/05/23 11:00 89 26 H 142/46 99 08/05/23 10:40 93 28 H 127/56 98 08/05/23 10:02 98.9 F 103 H 22 122/76 98 08/05/23 09:56 22 08/05/23 09:49 98.8 F 123 H 26 H 175/73 87 L Intake and Output 08/04/23 08/05/23 08/05/23 21:59 06:59 14:59 Other: Weight 74.389 kg GENERAL EXAM: Alert, 68-year-old female patient, on 3 L nasal cannula, fairly comfortable in no apparent distress. HEAD: Normocephalic. EYES: Normal reaction of pupils, equal size. NOSE: Clear with pink turbinates. THROAT: No erythema or exudates. NECK: No masses, no JVD. CHEST: No chest wall deformity. LUNGS: Equal air entry with bilateral scattered rhonchi, end expiratory wheeze. CVS: S1 and S2 normal with no audible murmur, regular rhythm. ABDOMEN: No hepatosplenomegaly, normal bowel sounds, no guarding or rigidity. SPINE: No scoliosis or deformity SKIN: No rashes CENTRAL NERVOUS SYSTEM: No focal deficits, tone is normal in all 4 extremities. EXTREMITIES: There is no peripheral edema. No clubbing, no cyanosis. Peripheral pulses are intact. Results - Laboratory Findings CBC and BMP: 08/05/23 10:05 08/05/23 10:05 PT/INR, D-dimer PT 9.9 sec (10.0-12.5) L 08/05/23 10:05 INR 0.9 (<1.2) 08/05/23 10:05 Abnormal lab findings: Abnormal Labs 08/05/23 08/05/23 08/05/23 10:05 10:05 10:05 Lymphocytes # 0.6 L PT 9.9 L Potassium 5.2 H BUN 35 H Glucose 249 H POC Glucose (mg/dL) Plasma Lactic Acid Yo Troponin I Influenza Type A (PCR) 08/05/23 08/05/23 08/05/23 10:05 10:05 10:05 Lymphocytes # PT Potassium BUN Glucose POC Glucose (mg/dL) Plasma Lactic Acid Yo 2.3 H* Troponin I 0.786 H* Influenza Type A (PCR) Detected A 08/05/23 08/05/23 12:17 12:27 Lymphocytes # PT Potassium BUN Glucose POC Glucose (mg/dL) 230 H Plasma Lactic Acid Yo Troponin I 0.926 H* Influenza Type A (PCR) - Diagnostic Findings Chest x-ray: image reviewed Assessment and Plan Assessment: Acute hypoxemic respiratory failure secondary to an acute exacerbation of COPD complicated by influenza A Acute influenza A infection Troponin leak Chronic and ongoing tobacco dependence of greater than 50 years Chronic obstructive pulmonary disease Diabetes mellitus, type II Hypertension Hyperlipidemia Plan: The patient was seen and evaluated Chest x-ray, labs and medications reviewed Initiated on a heparin drip Add DuoNeb inhalations, Symbicort, Solu-Medrol Add Tamiflu Check a procalcitonin Empiric antibiotics for now Obtain an echocardiogram Educated regarding importance of complete smoking cessation NicoDerm patch will be offered We will continue to follow and make further recommendations based on her clinical status I have personally seen and examined the patient, performed the documentation and the assessment and plan as written. Number of minutes spent on the visit: 20.
[2023-08-05] MEDS: ANASTROZOLE 1 MG TAB PO SCH (16:12)
[2023-08-05] MEDS: LOSARTAN 50 MG TAB PO SCH (16:13)
[2023-08-05 16:46] LABS: Glucose,Whole Blood 222 mg/dL (70-110)
[2023-08-05] MEDS: ATORVASTATIN 10 MG TAB PO SCH (17:08)
[2023-08-05] MEDS: methylPREDNISolone SOD SUCCI 125 MG/2 ML VIAL IV SCH (17:08)
--- NOTE | 2023-08-05 17:58 | P.CRDCN ---
History of Present Illness Consult date: 08/05/23 History of present illness: HISTORY OF PRESENTING ILLNESS Patient is a 68-year-old male with past medical history of type 2 diabetes, hypertension dyslipidemia, COPD, chronic and ongoing tobacco use for 50 years. She presented to the hospital because of increased breathing difficulty and shortness of breath that has progressively got worse in the last 2 weeks. She a lso reports poor appetite, chills. On admission she was tested positive for influenza A. Her chest x-ray showed chronic COPD changes with mild pulmonary congestion. Hemoglobin 13.2, platelets 211, INR 0.9, BUN 35, creatinine 1, glucose 249, lactate 2.3, repeat 1.4. Her troponin was elevated at 0.7, 0.9. BNP was elevated at 5000. Her ECG shows sinus rhythm, left axis deviation with poor R wave progression. No significant ST-T wave changes diagnostic for ischemia REVIEW OF SYSTEMS 14 point review of system is negative except what is mentioned above in HPI. PHYSICAL EXAMINATION Vital signs reviewed. Head: Normocephalic. Eyes: Sclerae nonicteric. Neck: Brisk carotid upstroke, no jugular venous distention. Lungs: Clear to auscultation. Heart: Regular rate and rhythm, S1-S2, no S3, no murmur or rub. Abdomen: Soft nontender, positive bowel sounds. Extremities: No edema, intact distal pulses. Neuro: Alert, oritented, no focal deficits. Detailed neuro exam was not performed. ASSESSMENT Acute hypoxic respiratory failure Influenza A infection COPD exacerbation NSTEMI, likely type II High pretest probability for CAD Hypertension Type II diabetes Chronic smoker, [id number] smoking history Breast cancer with partial breast resection. Currently on anastrozole no reported radiation or chemotherapy received in the past. PLAN Start aspirin 81 mg. Lipitor 40 start IV heparin drip. Continue IV heparin for 48 hours Continue metoprolol 50 mg twice daily and losartan 50 mg daily which at home medication Obtain an echocardiogram Once patient's respiratory status and COPD improves, evaluate if patient can get inpatient heart catheterization. If not scheduled for an outpatient heart catheterization. Buck Nguyen MD, FACC, RPVI Thank you for allowing [facility] to participate in this patient's care. Feel free to reach out in case of any followup questions. Past Medical History Past Medical History: Asthma, Cancer, COPD, Diabetes Mellitus, Hyperlipidemia, Hypertension, Osteoarthritis (OA) Additional Past Medical History / Comment(s): lower back & neck pain , sinus headaches., hospitalized for covid (feb 2021)., new diagnosis left breast cancer., bladder leakage-wears pads. History of Any Multi-Drug Resistant Organisms: None Reported Past Surgical History: Orthopedic Surgery, Tonsillectomy, Tubal Ligation Additional Past Surgical History / Comment(s): hemorrhoidectomy, Cataracts. Missing left knee cap d/t accident in the s. PAIN CLINIC PROCEDURES, bone removed left shoulder., Left Breast Lumpectomy with Sentinal node bx. (01/10/22) Past Anesthesia/Blood Transfusion Reactions: No Reported Reaction Past Psychological History: No Psychological Hx Reported Smoking Status: Current every day smoker Past Alcohol Use History: None Reported Past Drug Use History: None Reported - Past Family History Mother Family Medical History: Cancer Additional Family Medical History / Comment(s): Mother @ 80 from renal failure secondary to complication from diabetes. Father Family Medical History: Cancer Additional Family Medical History / Comment(s): Father at age 58 from esophageal cancer Sister(s) Family Medical History: Cancer Additional Family Medical History / Comment(s): Patient has 2 sisters. One from brain cancer and one from lung cancer. Brother(s) Family Medical History: Cancer Additional Family Medical History / Comment(s): Patient has 2 brothers one from combinations of diabetes. One is alive with no major medical problems. Daughter(s) Family Medical History: No Reported History Additional Family Medical History / Comment(s): . Medications and Allergies Home Medications Medication Instructions Recorded Confirmed Type Lovastatin [Mevacor] 40 mg PO W/SUPPER 07/26/16 08/05/23 History metFORMIN HCL [Glucophage] 1,000 mg PO BID 07/26/16 08/05/23 History Fluticasone Furoate [Arnuity 1 puff INHALATION RT-DAILY 02/28/21 08/05/23 History Ellipta] Losartan [Cozaar] 50 mg PO DAILY 02/28/21 08/05/23 History Metoprolol Tartrate [Lopressor] 50 mg PO BID 02/28/21 08/05/23 History hydroCHLOROthiazide [Hydrodiuril] 25 mg PO BID 02/28/21 08/05/23 History Anastrozole 1 mg PO DAILY 06/30/22 08/05/23 History Albuterol Sulfate [Albuterol 1 puff PO RT-Q4H 08/05/23 08/05/23 History Sulfate Hfa] Fluticasone Nasal [place] [Flonase 1 spray EA NOSTRIL DAILY PRN 08/05/23 08/05/23 History Nasal [place]] Glimepiride [Amaryl] 2 mg PO DAILY 08/05/23 08/05/23 History Allergies Allergy/AdvReac Type Severity Reaction Status Date / Time nickel Allergy Rash/Hives Verified 08/05/23 09:51 aspirin AdvReac Nausea & Verified 08/05/23 09:51 Vomiting Physical Exam Vitals: Vital Signs Temp Pulse Pulse Resp BP BP Pulse Ox 08/05/23 16:31 75 08/05/23 16:20 75 08/05/23 14:00 72 18 08/05/23 12:00 98.1 F 72 18 149/57 92 L 08/05/23 11:47 96 08/05/23 11:30 88 08/05/23 11:00 89 26 H 142/46 99 08/05/23 10:40 93 28 H 127/56 98 08/05/23 10:02 98.9 F 103 H 22 122/76 98 08/05/23 09:56 22 08/05/23 09:49 98.8 F 123 H 26 H 175/73 87 L Intake and Output 08/05/23 08/05/23 08/05/23 06:59 14:59 22:59 Intake Total 54.008 Balance 54.008 Intake: Intake, IV Titration 54.008 Amount Heparin Sod,Pork in 0.45% 54.008 NaCl 25,000 unit In 0.45 % NaCl 1 250ml.bag @ 12 UNITS/KG/HR 8.927 mls/hr IV .Q24H [facility] Rx#: [id number] Other: Voiding Method Toilet Weight 74.389 kg Results 08/05/23 10:05 08/05/23 10:05 Cardiac Enzymes 08/05/23 08/05/23 08/05/23 Range/Units 10:05 10:05 12:27 AST 35 (14-36) U/L Troponin I 0.786 H* 0.926 H* (0.000-0.034) ng/mL Coagulation 08/05/23 08/05/23 Range/Units 10:05 17:13 PT 9.9 L (10.0-12.5) sec APTT 25.6 46.5 H (22.0-30.0) sec CBC 08/05/23 Range/Units 10:05 WBC 6.5 (3.8-10.6) k/uL RBC 4.49 (3.80-5.40) m/uL Hgb 13.2 (11.4-16.0) gm/dL Hct 40.0 (34.0-46.0) % Plt Count 211 (150-450) k/uL Comprehensive Metabolic Panel 08/05/23 Range/Units 10:05 Sodium 137 (137-145) mmol/L Potassium 5.2 H (3.5-5.1) mmol/L Chloride 101 (98-107) mmol/L Carbon Dioxide 24 (22-30) mmol/L BUN 35 H (7-17) mg/dL Creatinine 1.00 (0.52-1.04) mg/dL Glucose 249 H (74-99) mg/dL Calcium 9.3 (8.4-10.2) mg/dL AST 35 (14-36) U/L ALT 20 (4-34) U/L Alkaline Phosphatase 88 (38-126) U/L Total Protein 7.1 (6.3-8.2) g/dL Albumin 4.2 (3.5-5.0) g/dL Current Medications Generic Name Dose Route Start Last Admin Trade Name Freq PRN Reason Stop Dose Admin Albuterol/Ipratropium 3 ml 08/05/23 12:00 08/05/23 16:20 Ipratropium-Albuterol 3 Ml Neb INHALATION 3 ml RT-QID HIWOT Administration Albuterol/Ipratropium 3 ml 08/05/23 11:17 Ipratropium-Albuterol 3 Ml Neb INHALATION RT-Q2H PRN Shortness Of Breath Or Wheezing Anastrozole 1 mg 08/05/23 15:00 08/05/23 16:12 Anastrozole 1 Mg Tab PO Not Given DAILY [facility] Aspirin 81 mg 08/05/23 18:00 Aspirin 81 Mg PO DAILY [facility] Atorvastatin Calcium 10 mg 08/05/23 17:30 08/05/23 17:08 Atorvastatin 10 Mg Tab PO 10 mg W/SUPPER HIWOT Administration Atorvastatin Calcium 40 mg 08/05/23 21:00 Atorvastatin 40 Mg Tab PO HS HIWOT Azithromycin 500 mg 08/06/23 09:00 Azithromycin 500 Mg Tab PO 08/08/23 09:01 DAILY [facility] Protocol Budesonide/Formoterol Fumarate 2 puff 08/05/23 20:00 Symbicort 160-4.5 Mcg Inhaler INHALATION RT-BID HIWOT Dextrose/Water 25 ml 08/05/23 11:25 Dextrose 50% Syringe 50 Ml IVP PER PROTOCOL PRN Hypoglycemia Protocol Dextrose/Water 50 ml 08/05/23 11:25 Dextrose 50% Syringe 50 Ml IVP PER PROTOCOL PRN Hypoglycemia Protocol Fluticasone Propionate 1 spray 08/05/23 14:45 Fluticasone 50mcg/[place] Nasal 16gm EA NOSTRIL DAILY PRN Allergy Symptoms Glimepiride 2 mg 08/06/23 07:30 Glimepiride 2 Mg Tab PO AC-BRKFST [facility] Hydrochlorothiazide 25 mg 08/05/23 21:00 Hydrochlorothiazide 25 Mg Tab PO BID [facility] Heparin Sodium/Sodium Chloride 250 mls @ 8.927 mls/hr 08/05/23 11:15 08/05/23 17:54 25,000 unit/ Sodium Chloride IV 12 units/kg/hr .Q24H HIWOT 8.927 mls/hr Titration Protocol 12 UNITS/KG/HR Insulin Aspart 0 unit 08/05/23 12:30 08/05/23 17:08 Insulin Aspart (Novolog) 100 Unit/Ml Vial SQ 2 unit ACHS HIWOT Administration Protocol Losartan Potassium 50 mg 08/05/23 15:00 08/05/23 16:13 Losartan 50 Mg Tab PO Not Given DAILY [facility] Methylprednisolone Sodium Succinate 60 mg 08/05/23 16:00 08/05/23 17:08 Methylprednisolone Sod Succi 125 Mg/2 Ml Vial IV 60 mg Q6H HIWOT Administration Metoprolol Tartrate 50 mg 08/05/23 21:00 Metoprolol Tartrate 50 Mg Tab PO BID HIWOT Naloxone HCl 0.2 mg 08/05/23 11:17 Naloxone 0.4 Mg/Ml 1 Ml Vial IVP Q2M PRN Opioid Reversal Nicotine 1 patch 08/06/23 09:00 Nicotine 21mg/24hr Patch TRANSDERM DAILY [facility] Oseltamivir Phosphate 30 mg 08/05/23 21:00 Oseltamivir 60 Mg/10 Ml Oral Syringe PO 08/10/23 09:01 Q12HR [facility] Protocol Intake and Output 08/05/23 08/05/23 08/05/23 06:59 14:59 22:59 Intake Total 54.008 Balance 54.008 Intake: Intake, IV Titration 54.008 Amount Heparin Sod,Pork in 0.45% 54.008 NaCl 25,000 unit In 0.45 % NaCl 1 250ml.bag @ 12 UNITS/KG/HR 8.927 mls/hr IV .Q24H [facility] Rx#: [id number] Other: Voiding Method Toilet Weight 74.389 kg Patient Weight 08/06/23 06:59 Weight 74.389 kg 08/05/23 10:05 08/05/23 10:05
[2023-08-05] MEDS: ASPIRIN 81 MG PO SCH (18:26)
[2023-08-05] MEDS: SYMBICORT 160-4.5 MCG INHALER INHALATION SCH (20:24)
[2023-08-05 20:39] LABS: Glucose,Whole Blood 354 mg/dL (70-110)
[2023-08-05] MEDS: METOPROLOL TARTRATE 50 MG TAB PO SCH (20:53)
[2023-08-05] MEDS: hydroCHLOROthiazide 25 MG TAB PO SCH (20:53)
[2023-08-05] MEDS: ATORVASTATIN 40 MG TAB PO SCH (20:53)
[2023-08-05] MEDS: OSELTAMIVIR 60 MG/10 ML ORAL SYRINGE PO SCH (21:15)
[2023-08-06 06:20] LABS: Glucose,Whole Blood 228 mg/dL (70-110)
[2023-08-06] MEDS: GLIMEPIRIDE 2 MG TAB PO SCH (06:39)
[2023-08-06] MEDS ORDERED: FLUTICASONE 110 MCG INHALER INHALATION SCH (08:00)
[2023-08-06] MEDS: NICOTINE 21MG/24HR PATCH TRANSDERM SCH (08:59)
[2023-08-06] MEDS: AZITHROMYCIN 500 MG TAB PO SCH (08:59)
[2023-08-06 09:04] LABS: Basophils % (A) 0 %; Eosinophils % (A) 0 %; HCT 37.4 % (34.0-46.0); HGB 12.1 gm/dL (11.4-16.0); Lymphocytes # (A) 0.4 k/uL (1.0-4.8); Lymphocytes % (A) 9 %; MCH 28.9 pg (25.0-35.0); MCHC 32.3 g/dL (31.0-37.0); MCV 89.5 fL (80.0-100.0); Mean Platelet Volume 8.4; Monocytes # (A) 0.3 k/uL (0-1.0); Monocytes % (A) 5 %; Neutrophils # (A) 3.9 k/uL (1.3-7.7); Neutrophils % (A) 84 %; Platelet Count 207 k/uL (150-450); RBC 4.18 m/uL (3.80-5.40); WBC 4.7 k/uL (3.8-10.6)
[2023-08-06 09:27] LABS: ALT 15 U/L (4-34); AST 24 U/L (14-36); African American GFR (CKD) 59 (>60 ml/min/1.73 sqM); Albumin 3.8 g/dL (3.5-5.0); Alkaline Phosphatase 83 U/L (38-126); Anion Gap 9 mmol/L; Blood Urea Nitrogen 47 mg/dL (7-17); Calcium 8.8 mg/dL (8.4-10.2); Carbon Dioxide 29 mmol/L (22-30); Chloride 101 mmol/L (98-107); Glucose 240 mg/dL (74-99); Non-African American GFR(CKD) 51 (>60 ml/min/1.73 sqM); Potassium 5.1 mmol/L (3.5-5.1); Sodium 139 mmol/L (137-145); Total Bilirubin 0.3 mg/dL (0.2-1.3); Total Protein 6.6 g/dL (6.3-8.2)
--- NOTE | 2023-08-06 11:32 | CA ---
Transthoracic Echo Report Name: Nichelle Shell Age: 68 Gender: F : 1955 Exam Date: 08/06/2023 08:04 Exam Location: [place] [facility] Ht (in): 65 Wt (lb): 164 Ordering Physician: Buck Nguyen MD ([email or web address]) Attending/Referring Phys: [employer] Karen Doty RCS Procedure CPT: Indications: NSETMI, Pulmo HTN Cardiac Hx: Technical Quality: Technically difficult study Contrast 1: Definity Total Dose (mL): 2 Contrast 2: Total Dose (mL): MEASUREMENTS (Male / Female) Normal Values 2D ECHO LVOT Diameter 1.9 cm LV Diastolic Volume MOD BP 116.3 cm??? 67 - 155 / 56 - 104 cm??? LV Systolic Volume MOD BP 60.4 cm??? 22 - 58 / 19 - 49 cm??? LV Ejection Fraction MOD BP 48.1 % >= 55 % LV Cardiac Index MOD BP 2639.6 cm???/min???m??? LV Diastolic Volume MOD 4C 108.4 cm??? LV Systolic Volume MOD 4C 61.2 cm??? LV Ejection Fraction MOD 4C 43.5 % LV Cardiac Index MOD 4C 2226.8 cm???/min???m??? LV Diastolic Length 4C 7.2 cm LV Systolic Length 4C 6.8 cm LV Diastolic Volume MOD 2C 115.9 cm??? LV Systolic Volume MOD 2C 59.2 cm??? LV Ejection Fraction MOD 2C 48.9 % LV Cardiac Index MOD 2C 2677.3 cm???/min???m??? LV Diastolic Length 2C 7.8 cm LV Systolic Length 2C 6.9 cm LA Volume 33.3 cm??? 18 - 58 / 22 - 52 cm??? LA Volume Index 17.9 cm???/m??? 16 - 28 cm???/m??? DOPPLER AV Peak Velocity 210.3 cm/s AV Peak Gradient 17.7 mmHg AV Mean Velocity 149.6 cm/s AV Mean Gradient 9.8 mmHg AV Velocity Time Integral 41.4 cm LVOT Peak Velocity 151.3 cm/s LVOT Peak Gradient 9.2 mmHg LVOT Velocity Time Integral 31.0 cm LVOT Stroke Volume 84.6 cm??? LVOT Stroke Volume Index 46.5 ml/m??? LVOT Cardiac Index 3992.7 cm???/min???m??? AV Area Cont Eq vti 2.0 cm??? AV Area Cont Eq pk 2.0 cm??? Mitral E Point Velocity 75.3 cm/s Mitral A Point Velocity 92.8 cm/s Mitral E to A Ratio 0.8 MV Deceleration Time 196.3 ms MV E' Velocity 4.5 cm/s Mitral E to MV E' Ratio 16.6 PV Peak Velocity 100.8 cm/s PV Peak Gradient 4.1 mmHg FINDINGS Left Ventricle Left ventricular ejection fraction is estimated at 45-50 %. Mildly increased left ventricular diastolic volume. Moderately increased left ventricular systolic volume. Mildly decreased left ventricular ejection fraction. Right Ventricle Normal right ventricular size and function. Unable to determine right ventricular systolic function. Right Atrium Normal right atrial size. Left Atrium Normal left atrial size. Mitral Valve Structurally normal mitral valve. No evidence for mitral valve prolapse. No mitral stenosis. Trace mitral regurgitation. Aortic Valve Aortic valve not well visualized. No aortic stenosis. No aortic regurgitation. Tricuspid Valve Structurally normal tricuspid valve. No tricuspid stenosis. Trace tricuspid regurgitation. Pulmonic Valve Pulmonic valve not well visualized. Pericardium No pericardial effusion. Aorta Aortic annulus normal. Ascending aorta not well visualized. CONCLUSIONS Technically difficult study. Contrast was used Mildly impaired LV function with EF between 45-50% Poorly visualized intracardiac valves No pericardial effusion Previewed by: Dr. Satish Hardin MD (Electronically Signed) Final Date: 06 August 2023 11:32
[2023-08-06 12:01] LABS: Glucose,Whole Blood 273 mg/dL (70-110)
--- NOTE | 2023-08-06 14:28 | P.PN ---
Subjective Progress Note Date: 08/06/23 This is a 68-year-old female patient with a history of diabetes mellitus, hypertension, hyperlipidemia, chronic obstructive pulmonary disease, chronic and ongoing tobacco dependence of greater than 50 years. She presented here to the emergency room this morning with a 1 week history of shortness of breath, cough, chills, headache, poor appetite worsening over the past several days. She also had some left-sided chest discomfort. Chest x-ray shows evidence of COPD with moderate emphysema. Some similar bilateral hilar enlargement noted on previous exam as far back as February 2021. Granulomatous disease versus sarcoidosis and connective tissue disorders within the differential. Otherwise, no acute pulmonary process. White count 6.5. Hemoglobin 13.2. Platelets 211. INR 0.9. Sodium 137. Potassium 5.2. Bicarb 24. BUN 35. Creatinine 1.00. Glucose 249. Initial lactic 2.3, currently 1.4. Troponin 0.786, 0.926. proBNP 5060. Viral screen positive for influenza A. She is seen today in consultation on the selective care unit. She is currently up ambulating in her room. Awake and a lert in no acute distress. She denies any worsening shortness of breath, cough or congestion. No chest pain currently. She has been initiated on a heparin drip. Continued O2 saturations in the 90s on 3 L/min per nasal cannula. Afebrile. Hemodynamically stable. The patient is seen today August 06, 2023 in follow-up on the regular medical floor. She is currently sitting up in bed. Awake and alert in no acute distress. She is maintaining O2 saturations in the 90s on 3 L/min per nasal cannula. She is afebrile. Hemodynamically stable. White count 4.7. Hemoglobin 12.1. Platelets 207. Sodium 139. Potassium 5.1. Bicarb 29. BUN 47. Creatinine 1.10. Glucose 240. She remains on a heparin drip. Echocardiogram revealed mildly impaired left ventricular systolic function with an ejection fraction 45 to 50%. She remains on DuoNeb ventilations, Symbicort, Solu-Medrol. NicoDerm patch in place. Continued on Tamiflu. Procalcitonin 0.41. Continued on azithromycin. Objective - Vital Signs Vital signs: Vital Signs Temp 98.2 F 08/06/23 08:55 Pulse 80 08/06/23 12:08 Resp 16 08/06/23 08:55 BP 156/73 08/06/23 08:55 Pulse Ox 94 L 08/06/23 08:55 FiO2 Intake & Output 08/05/23 08/06/23 08/06/23 18:59 06:59 18:59 Intake Total 54.008 166.489 Output Total 0 0 Balance 54.008 0 166.489 Weight 74.389 kg Intake: Intake, IV Titration 54.008 166.489 Amount Heparin Sod,Pork in 0.45% 54.008 166.489 NaCl 25,000 unit In 0.45 % NaCl 1 250ml.bag @ 12 UNITS/KG/HR 8.927 mls/hr IV .Q[facility]H [facility] Rx#: [id number] Output: Gastric Drainage 0 Urine 0 Stool 0 0 Urine/Stool Mix 0 Oral Regurgitation 0 Other 0 Other: Voiding Method Toilet Toilet # Voids 0 2 # Bowel Movements 0 - Exam GENERAL EXAM: Alert, unkept 68-year-old female, on 3 L nasal cannula, comfortable in no apparent distress. HEAD: Normocephalic. EYES: Normal reaction of pupils, equal size. NOSE: Clear with pink turbinates. THROAT: No erythema or exudates. NECK: No masses, no JVD. CHEST: No chest wall deformity. LUNGS: Equal air entry with bilateral end expiratory wheeze, diminished. CVS: S1 and S2 normal with no audible murmur, regular rhythm. ABDOMEN: No hepatosplenomegaly, normal bowel sounds, no guarding or rigidity. SPINE: No scoliosis or deformity SKIN: No rashes CENTRAL NERVOUS SYSTEM: No focal deficits, tone is normal in all 4 extremities. EXTREMITIES: There is no peripheral edema. No clubbing, no cyanosis. Peripheral pulses are intact. - Labs CBC & Chem 7: 08/06/23 07:46 08/06/23 07:46 Labs: Abnormal Lab Results - Last 24 Hours (Table) 08/05/23 08/05/23 08/05/23 Range/Units 12:27 16:45 17:13 Lymphocytes # (1.0-4.8) k/uL APTT (22.0-30.0) sec BUN (7-17) mg/dL Creatinine (0.52-1.04) mg/dL Glucose (74-99) mg/dL POC Glucose (mg/dL) 222 H (70-110) mg/dL Hemoglobin A1c (<=6.0) % Troponin I 0.926 H* 0.555 H* (0.000-0.034) ng/mL Procalcitonin (0.02-0.09) ng/mL 08/05/23 08/05/23 08/05/23 Range/Units 17:13 17:13 20:37 Lymphocytes # (1.0-4.8) k/uL APTT 46.5 H (22.0-30.0) sec BUN (7-17) mg/dL Creatinine (0.52-1.04) mg/dL Glucose (74-99) mg/dL POC Glucose (mg/dL) 354 H (70-110) mg/dL Hemoglobin A1c (<=6.0) % Troponin I (0.000-0.034) ng/mL Procalcitonin 0.41 H (0.02-0.09) ng/mL 08/06/23 08/06/23 08/06/23 Range/Units 06:17 07:46 07:46 Lymphocytes # 0.4 L (1.0-4.8) k/uL APTT (22.0-30.0) sec BUN (7-17) mg/dL Creatinine (0.52-1.04) mg/dL Glucose (74-99) mg/dL POC Glucose (mg/dL) 228 H (70-110) mg/dL Hemoglobin A1c 7.4 H (<=6.0) % Troponin I (0.000-0.034) ng/mL Procalcitonin (0.02-0.09) ng/mL 08/06/23 08/06/23 08/06/23 Range/Units 07:46 07:46 11:59 Lymphocytes # (1.0-4.8) k/uL APTT 38.7 H (22.0-30.0) sec BUN 47 H (7-17) mg/dL Creatinine 1.10 H (0.52-1.04) mg/dL Glucose 240 H (74-99) mg/dL POC Glucose (mg/dL) 273 H (70-110) mg/dL Hemoglobin A1c (<=6.0) % Troponin I (0.000-0.034) ng/mL Procalcitonin (0.02-0.09) ng/mL Assessment and Plan Assessment: Acute hypoxemic respiratory failure secondary to an acute exacerbation of COPD complicated by influenza A Acute influenza A infection Troponin leak Chronic and ongoing tobacco dependence of greater than 50 years Chronic obstructive pulmonary disease Diabetes mellitus, type II Hypertension Hyperlipidemia Plan: The patient was seen and evaluated Echocardiogram, labs and medications reviewed Continue on a heparin drip Continued on bronchodilators and steroid Continue Tamiflu Continue antibiotics NicoDerm patch in place We will continue to follow I have personally seen and examined the patient, performed the documentation and the assessment and plan as written. Number of minutes spent on the visit: 10.
--- NOTE | 2023-08-06 15:23 | P.PN ---
Subjective Progress Note Date: 08/06/23 HISTORY OF PRESENTING ILLNESS Patient is a 68-year-old male with past medical history of type 2 diabetes, hypertension dyslipidemia, COPD, chronic and ongoing tobacco use for 50 years. She presented to the hospital because of increased breathing difficulty and shortness of breath that has progressively got worse in the last 2 weeks. She also reports poor appetite, chills. On admission she was tested positive for influenza A. Her chest x-ray showed chronic COPD changes with mild pulmonary congestion. Hemoglobin 13.2, platelets 211, INR 0.9, BUN 35, creatinine 1, glucose 249, lactate 2.3, repeat 1.4. Her troponin was elevated at 0.7, 0.9. BNP was elevated at 5000. Her ECG shows sinus rhythm, left axis deviation with poor R wave progression. No significant ST-T wave changes diagnostic for ischemia 08/05 Patient remains on heparin drip. She states she is feeling better today she is still feeling congested is little bit of cough and a little wheeze. Blood pressure 156/73, heart rate 90, pulse ox 94% on 3 L nasal cannula. CBC is unremarkable. Electrolytes normal, BUN 47 creatinine 1.1. Hemoglobin A1c is 7.4. Echocardiogram performed 08/05/2023 reveals EF of 45 to 50%, poorly visualized intracardiac valves. No pericardial effusion. PHYSICAL EXAMINATION Vital signs reviewed. Head: Normocephalic. Eyes: Sclerae nonicteric. Neck: Brisk carotid upstroke, no jugular venous distention. Lungs: Clear to auscultation. Heart: Regular rate and rhythm, S1-S2, no S3, no murmur or rub. Abdomen: Soft nontender, positive bowel sounds. Extremities: No edema, intact distal pulses. Neuro: Alert, oritented, no focal deficits. Detailed neuro exam was not performed. ASSESSMENT Acute hypoxic respiratory failure Influenza A infection COPD exacerbation NSTEMI, likely type II High pretest probability for CAD Hypertension Type II diabetes Chronic smoker, [id number] smoking history Breast cancer with partial breast resection. Currently on anastrozole no reported radiation or chemotherapy received in the past. PLAN Continue aspirin 81 mg. Lipitor 40 40 mg daily Discontinue heparin drip Continue metoprolol 50 mg twice daily and losartan 50 mg daily Once patient's respiratory status and COPD improves, evaluate if patient can get inpatient heart catheterization. If not scheduled for an outpatient heart catheterization. Nurse practitioner note has been reviewed, I agree with documented findings and plan of care. Patient was seen and examined. Objective - Vital Signs Vital signs: Vital Signs Temp 98.2 F 08/06/23 08:55 Pulse 80 08/06/23 12:08 Resp 16 08/06/23 08:55 BP 156/73 08/06/23 08:55 Pulse Ox 94 L 08/06/23 08:55 FiO2 Intake & Output 08/05/23 08/06/23 08/06/23 18:59 06:59 18:59 Intake Total 54.008 166.489 Output Total 0 0 Balance 54.008 0 166.489 Weight 74.389 kg Intake: Intake, IV Titration 54.008 166.489 Amount Heparin Sod,Pork in 0.45% 54.008 166.489 NaCl 25,000 unit In 0.45 % NaCl 1 250ml.bag @ 12 UNITS/KG/HR 8.927 mls/hr IV .Q24H [facility] Rx#: [id number] Output: Gastric Drainage 0 Urine 0 Stool 0 0 Urine/Stool Mix 0 Oral Regurgitation 0 Other 0 Other: Voiding Method Toilet Toilet # Voids 0 2 # Bowel Movements 0 - Labs CBC & Chem 7: 08/06/23 07:46 08/06/23 07:46 Labs: Abnormal Lab Results - Last 24 Hours (Table) 08/05/23 08/05/23 08/05/23 Range/Units 12:27 16:45 17:13 Lymphocytes # (1.0-4.8) k/uL APTT (22.0-30.0) sec BUN (7-17) mg/dL Creatinine (0.52-1.04) mg/dL Glucose (74-99) mg/dL POC Glucose (mg/dL) 222 H (70-110) mg/dL Hemoglobin A1c (<=6.0) % Troponin I 0.926 H* 0.555 H* (0.000-0.034) ng/mL Procalcitonin (0.02-0.09) ng/mL 08/05/23 08/05/23 08/05/23 Range/Units 17:13 17:13 20:37 Lymphocytes # (1.0-4.8) k/uL APTT 46.5 H (22.0-30.0) sec BUN (7-17) mg/dL Creatinine (0.52-1.04) mg/dL Glucose (74-99) mg/dL POC Glucose (mg/dL) 354 H (70-110) mg/dL Hemoglobin A1c (<=6.0) % Troponin I (0.000-0.034) ng/mL Procalcitonin 0.41 H (0.02-0.09) ng/mL 08/06/23 08/06/23 08/06/23 Range/Units 06:17 07:46 07:46 Lymphocytes # 0.4 L (1.0-4.8) k/uL APTT (22.0-30.0) sec BUN (7-17) mg/dL Creatinine (0.52-1.04) mg/dL Glucose (74-99) mg/dL POC Glucose (mg/dL) 228 H (70-110) mg/dL Hemoglobin A1c 7.4 H (<=6.0) % Troponin I (0.000-0.034) ng/mL Procalcitonin (0.02-0.09) ng/mL 08/06/23 08/06/23 08/06/23 Range/Units 07:46 07:46 11:59 Lymphocytes # (1.0-4.8) k/uL APTT 38.7 H (22.0-30.0) sec BUN 47 H (7-17) mg/dL Creatinine 1.10 H (0.52-1.04) mg/dL Glucose 240 H (74-99) mg/dL POC Glucose (mg/dL) 273 H (70-110) mg/dL Hemoglobin A1c (<=6.0) % Troponin I (0.000-0.034) ng/mL Procalcitonin (0.02-0.09) ng/mL
[2023-08-06] MEDS: OSELTAMIVIR 30 MG CAP PO SCH (16:30)
--- NOTE | 2023-08-06 17:29 | P.PN ---
Subjective Progress Note Date: 08/06/23 This is a 68-year-old female patient who presented to the ER with complaints of increased shortness of breath and cough for the past few days along with left- sided lateral chest pain. Patient has a history of COPD and nicotine dependence. Additional medical history includes asthma, diabetes mellitus, hyperlipidemia, hypertension, osteoporosis, chronic back pain, left breast cancer. Chest x-ray completed showing COPD with moderate emphysema. Small bilateral hilar enlargement we no prominent lymph nodes on the patient's 02/29/[address] follow-up granulomatous disease such as separate doses and connective tissue disorders or some differential considerations. Lab work revealing influenza A positive. Troponin 0.786, lactic acid 2.3. At this time patient will be admitted. Heparin drip ordered per emergency department due to elevated troponin. Patient started on IV Solu- Medrol and azithromycin. Tamiflu also started. Pulmonary and cardiology services consulted repeat labs ordered. Current vital signs temp 98.9, heart rate 93, respiratory rate 22, blood pressure 122/76 with pulse ox 98% on 3 L On 08/06/2023 patient was seen and examined on the medical floor she is alert and oriented 3 in no apparent distress she is still complaining of cough shortness of breath and wheezing otherwise she denies any complaints there is no fever or chills no headache or dizziness no chest pain no palpitation no nausea or vomiting no abdominal pain no diarrhea and no urinary symptoms Objective - Vital Signs Vital signs: Vital Signs Temp 98.2 F 08/05/23 20:00 Pulse 81 08/06/23 04:00 Resp 18 08/06/23 04:00 BP 128/69 08/06/23 04:00 Pulse Ox 97 08/06/23 04:00 FiO2 Intake & Output 08/05/23 08/06/23 08/06/23 18:59 06:59 18:59 Intake Total 54.008 Output Total 0 0 Balance 54.008 0 Weight 74.389 kg Intake: Intake, IV Titration 54.008 Amount Heparin Sod,Pork in 0.45% 54.008 NaCl 25,000 unit In 0.45 % NaCl 1 250ml.bag @ 12 UNITS/KG/HR 8.927 mls/hr IV .Q24H [facility] Rx#: [id number] Output: Gastric Drainage 0 Urine 0 Stool 0 0 Urine/Stool Mix 0 Oral Regurgitation 0 Other 0 Other: Voiding Method Toilet Toilet # Voids 0 2 # Bowel Movements 0 - Exam In general patient is alert and oriented 3 in no apparent distress Head normocephalic and atraumatic Neck supple no JVD no goiter Lungs diminished sounds bilaterally Heart regular rate and rhythm S1-S2, no rub or gallop Abdomen is soft nontender nondistended positive bowel sounds no hepatosplenomegaly Extremities no edema Neuro no gross focal deficit - Labs CBC & Chem 7: 08/06/23 07:46 08/06/23 07:46 Labs: Abnormal Lab Results - Last 24 Hours (Table) 08/05/23 08/05/23 08/05/23 Range/Units 10:05 10:05 10:05 Lymphocytes # 0.6 L (1.0-4.8) k/uL PT 9.9 L (10.0-12.5) sec APTT (22.0-30.0) sec Potassium 5.2 H (3.5-5.1) mmol/L BUN 35 H (7-17) mg/dL Glucose 249 H (74-99) mg/dL POC Glucose (mg/dL) (70-110) mg/dL Plasma Lactic Acid Yo (0.7-2.0) mmol/L Troponin I (0.000-0.034) ng/mL Procalcitonin (0.02-0.09) ng/mL Influenza Type A (PCR) (Not Detectd) 08/05/23 08/05/23 08/05/23 Range/Units 10:05 10:05 10:05 Lymphocytes # (1.0-4.8) k/uL PT (10.0-12.5) sec APTT (22.0-30.0) sec Potassium (3.5-5.1) mmol/L BUN (7-17) mg/dL Glucose (74-99) mg/dL POC Glucose (mg/dL) (70-110) mg/dL Plasma Lactic Acid Yo 2.3 H* (0.7-2.0) mmol/L Troponin I 0.786 H* (0.000-0.034) ng/mL Procalcitonin (0.02-0.09) ng/mL Influenza Type A (PCR) Detected A (Not Detectd) 08/05/23 08/05/23 08/05/23 Range/Units 12:17 12:27 16:45 Lymphocytes # (1.0-4.8) k/uL PT (10.0-12.5) sec APTT (22.0-30.0) sec Potassium (3.5-5.1) mmol/L BUN (7-17) mg/dL Glucose (74-99) mg/dL POC Glucose (mg/dL) 230 H 222 H (70-110) mg/dL Plasma Lactic Acid Yo (0.7-2.0) mmol/L Troponin I 0.926 H* (0.000-0.034) ng/mL Procalcitonin (0.02-0.09) ng/mL Influenza Type A (PCR) (Not Detectd) 08/05/23 08/05/23 08/05/23 Range/Units 17:13 17:13 17:13 Lymphocytes # (1.0-4.8) k/uL PT (10.0-12.5) sec APTT 46.5 H (22.0-30.0) sec Potassium (3.5-5.1) mmol/L BUN (7-17) mg/dL Glucose (74-99) mg/dL POC Glucose (mg/dL) (70-110) mg/dL Plasma Lactic Acid Yo (0.7-2.0) mmol/L Troponin I 0.555 H* (0.000-0.034) ng/mL Procalcitonin 0.41 H (0.02-0.09) ng/mL Influenza Type A (PCR) (Not Detectd) 08/05/23 08/06/23 Range/Units 20:37 06:17 Lymphocytes # (1.0-4.8) k/uL PT (10.0-12.5) sec APTT (22.0-30.0) sec Potassium (3.5-5.1) mmol/L BUN (7-17) mg/dL Glucose (74-99) mg/dL POC Glucose (mg/dL) 354 H 228 H (70-110) mg/dL Plasma Lactic Acid Yo (0.7-2.0) mmol/L Troponin I (0.000-0.034) ng/mL Procalcitonin (0.02-0.09) ng/mL Influenza Type A (PCR) (Not Detectd) Assessment and Plan Assessment: 1. Increased shortness breath and cough 2. Influenza A positive 3. Positive troponins 4. Acute COPD exacerbation 5. Lactic acidosis 6. Underlying history of diabetes mellitus 7. History of essential hypertension 8. Ongoing nicotine dependence 9. History of hyperlipidemia 10. History of COPD 11. Left breast cancer DVT prophylaxis heparin drip. GI prophylaxis Protonix Cardiology and pulmonary service is consulted Patient started IV steroids and antibiotic Patient started on IV heparin Patient started on Tamiflu Repeat labs ordered
[2023-08-06 17:35] LABS: Glucose,Whole Blood 309 mg/dL (70-110)
[2023-08-06 20:11] LABS: Glucose,Whole Blood 427 mg/dL (70-110)
[2023-08-07 06:14] LABS: Glucose,Whole Blood 277 mg/dL (70-110)
--- NOTE | 2023-08-07 09:09 | P.PN ---
Subjective Progress Note Date: 08/07/23 This is a 68-year-old female patient who presented to the ER with complaints of increased shortness of breath and cough for the past few days along with left- sided lateral chest pain. Patient has a history of COPD and nicotine dependence. Additional medical history includes asthma, diabetes mellitus, h yperlipidemia, hypertension, osteoporosis, chronic back pain, left breast cancer. Chest x-ray completed showing COPD with moderate emphysema. Small bilateral hilar enlargement we no prominent lymph nodes on the patient's 02/29/[address] follow-up granulomatous disease such as separate doses and connective tissue disorders or some differential considerations. Lab work revealing influenza A positive. Troponin 0.786, lactic acid 2.3. At this time patient will be admitted. Heparin drip ordered per emergency department due to elevated troponin. Patient started on IV Solu- Medrol and azithromycin. Tamiflu also started. Pulmonary and cardiology services consulted repeat labs ordered. Current vital signs temp 98.9, heart rate 93, respiratory rate 22, blood pressure 122/76 with pulse ox 98% on 3 L On 08/06/2023 patient was seen and examined on the medical floor she is alert and oriented 3 in no apparent distress she is still complaining of cough shortness of breath and wheezing otherwise she denies any complaints there is no fever or chills no headache or dizziness no chest pain no palpitation no nausea or vomiting no abdominal pain no diarrhea and no urinary symptoms On 08/07/2023 for patients alert and oriented 3. Patient reports improvement with cough and congestion. Per cardiology possible plans for inpatient cardiac catheterization. Current vital signs temp 98.3, heart rate 66, respiratory rate 18, blood pressure 1 4462 with pulse ox 97% on 2 L cardiology and pulmonary services are following. Patient denies chest pain. Patient denies nausea vomiting or diarrhea. Patient denies any urinary burning or frequency Objective - Vital Signs Vital signs: Vital Signs Temp 97.7 F 08/07/23 04:00 Pulse 68 08/07/23 04:00 Resp 18 08/07/23 04:00 BP 175/59 08/07/23 04:00 Pulse Ox 94 L 08/07/23 04:00 FiO2 Intake & Output 08/06/23 08/07/23 08/07/23 18:59 06:59 18:59 Intake Total 166.489 Output Total 0 Balance 166.489 0 Intake: Intake, IV Titration 166.489 Amount Heparin Sod,Pork in 0.45% 166.489 NaCl 25,000 unit In 0.45 % NaCl 1 250ml.bag @ 12 UNITS/KG/HR 8.927 mls/hr IV .Q24H [facility] Rx#: [id number] Output: Urine 0 Stool 0 Other: Voiding Method Toilet Toilet # Voids 4 - Exam In general patient is alert and oriented 3 in no apparent distress Head normocephalic and atraumatic Neck supple no JVD no goiter Lungs diminished sounds bilaterally Heart regular rate and rhythm S1-S2, no rub or gallop Abdomen is soft nontender nondistended positive bowel sounds no hepatosplenomegaly Extremities no edema Neuro no gross focal deficit - Labs CBC & Chem 7: 08/06/23 07:46 08/06/23 07:46 Labs: Abnormal Lab Results - Last 24 Hours (Table) 08/06/23 08/06/23 08/06/23 Range/Units 07:46 07:46 07:46 APTT 38.7 H (22.0-30.0) sec BUN 47 H (7-17) mg/dL Creatinine 1.10 H (0.52-1.04) mg/dL Glucose 240 H (74-99) mg/dL POC Glucose (mg/dL) (70-110) mg/dL Hemoglobin A1c 7.4 H (<=6.0) % 08/06/23 08/06/23 08/06/23 Range/Units 11:59 17:34 20:09 APTT (22.0-30.0) sec BUN (7-17) mg/dL Creatinine (0.52-1.04) mg/dL Glucose (74-99) mg/dL POC Glucose (mg/dL) 273 H 309 H 427 H (70-110) mg/dL Hemoglobin A1c (<=6.0) % 08/07/23 Range/Units 06:10 APTT (22.0-30.0) sec BUN (7-17) mg/dL Creatinine (0.52-1.04) mg/dL Glucose (74-99) mg/dL POC Glucose (mg/dL) 277 H (70-110) mg/dL Hemoglobin A1c (<=6.0) % Microbiology - Last 24 Hours (Table) 08/05/23 10:15 Blood Culture - Preliminary Blood 08/05/23 10:05 Blood Culture - Preliminary Blood Assessment and Plan Assessment: 1. Increased shortness breath and cough 2. Influenza A positive 3. Positive troponins 4. Acute COPD exacerbation 5. Lactic acidosis 6. Underlying history of diabetes mellitus 7. History of essential hypertension 8. Ongoing nicotine dependence 9. History of hyperlipidemia 10. History of COPD 11. Left breast cancer DVT prophylaxis heparin drip. GI prophylaxis Protonix Cardiology and pulmonary service is consulted Patient started IV steroids and antibiotic Patient started on IV heparin Patient started on Tamiflu Repeat labs ordered
[2023-08-07 09:13] LABS: Basophils % (A) 0 %; Eosinophils % (A) 0 %; HCT 38.7 % (34.0-46.0); HGB 12.8 gm/dL (11.4-16.0); Lymphocytes # (A) 0.5 k/uL (1.0-4.8); Lymphocytes % (A) 7 %; MCH 29.1 pg (25.0-35.0); MCV 88.2 fL (80.0-100.0); Mean Platelet Volume 8.9; Monocytes # (A) 0.3 k/uL (0-1.0); Monocytes % (A) 4 %; Neutrophils # (A) 6.1 k/uL (1.3-7.7); Neutrophils % (A) 87 %; Platelet Count 241 k/uL (150-450); RBC 4.38 m/uL (3.80-5.40); RDW 14.3 % (11.5-15.5)
[2023-08-07 09:30] LABS: ALT 20 U/L (4-34); AST 26 U/L (14-36); African American GFR (CKD) 54 (>60 ml/min/1.73 sqM); Alkaline Phosphatase 85 U/L (38-126); Anion Gap 11 mmol/L; Blood Urea Nitrogen 59 mg/dL (7-17); Calcium 9.3 mg/dL (8.4-10.2); Carbon Dioxide 29 mmol/L (22-30); Chloride 98 mmol/L (98-107); Glucose 313 mg/dL (74-99); Non-African American GFR(CKD) 47 (>60 ml/min/1.73 sqM); Potassium 5.4 mmol/L (3.5-5.1); Sodium 138 mmol/L (137-145); Total Bilirubin 0.3 mg/dL (0.2-1.3); Total Protein 6.9 g/dL (6.3-8.2)
[2023-08-07 11:39] LABS: Glucose,Whole Blood 298 mg/dL (70-110)
[2023-08-07] MEDS: amLODIPine 5 MG TAB PO SCH (12:53)
--- NOTE | 2023-08-07 13:39 | P.PN ---
Subjective Progress Note Date: 08/07/23 This is a 68-year-old female patient with a history of diabetes mellitus, hypertension, hyperlipidemia, chronic obstructive pulmonary disease, chronic and ongoing tobacco dependence of greater than 50 years. She presented here to the emergency room this morning with a 1 week history of shortness of breath, cough, chills, headache, poor appetite worsening over the past several days. She also had some left-sided chest discomfort. Chest x-ray shows evidence of COPD with moderate emphysema. Some similar bilateral hilar enlargement noted on previous exam as far back as February 2021. Granulomatous disease versus sarcoidosis and connective tissue disorders within the differential. Otherwise, no acute pulmonary process. White count 6.5. Hemoglobin 13.2. Platelets 211. INR 0.9. Sodium 137. Potassium 5.2. Bicarb 24. BUN 35. Creatinine 1.00. Glucose 249. Initial lactic 2.3, currently 1.4. Troponin 0.786, 0.926. proBNP 5060. Viral screen positive for influenza A. She is seen today in consultation on the selective care unit. She is currently up ambulating in her room. Awake and a lert in no acute distress. She denies any worsening shortness of breath, cough or congestion. No chest pain currently. She has been initiated on a heparin drip. Continued O2 saturations in the 90s on 3 L/min per nasal cannula. Afebrile. Hemodynamically stable. The patient is seen today August 06, 2023 in follow-up on the regular medical floor. She is currently sitting up in bed. Awake and alert in no acute distress. She is maintaining O2 saturations in the 90s on 3 L/min per nasal cannula. She is afebrile. Hemodynamically stable. White count 4.7. Hemoglobin 12.1. Platelets 207. Sodium 139. Potassium 5.1. Bicarb 29. BUN 47. Creatinine 1.10. Glucose 240. She remains on a heparin drip. Echocardiogram revealed mildly impaired left ventricular systolic function with an ejection fraction 45 to 50%. She remains on DuoNeb ventilations, Symbicort, Solu-Medrol. NicoDerm patch in place. Continued on Tamiflu. Procalcitonin 0.41. Continued on azithromycin. The patient is seen today August 07, 2023 in follow-up on the regular medical floor. She is currently sitting up at the bedside. Awake and alert in no acute distress. She is maintaining O2 saturations in the 90s on 2 L/min per nasal cannula. Blood cultures revealed no growth. White count 7.0. Hemoglobin 12.8. Platelets 241. Sodium 138. Potassium 5.4. Bicarb 29. BUN 59. Creatinine 1.18. Glucose 313. She is continued on DuoNeb ventilations, Symbicort, Solu- Medrol. NicoDerm patch in place. Remains on Tamiflu. Objective - Vital Signs Vital signs: Vital Signs Temp 98.1 F 08/07/23 08:00 Pulse 77 08/07/23 13:31 Resp 18 08/07/23 13:31 BP 146/64 08/07/23 12:00 Pulse Ox 90 L 08/07/23 12:00 FiO2 Intake & Output 08/06/23 08/07/23 08/07/23 18:59 06:59 18:59 Intake Total 166.489 360 Output Total 0 Balance 166.489 0 360 Intake: Intake, IV Titration 166.489 Amount Heparin Sod,Pork in 0.45% 166.489 NaCl 25,000 unit In 0.45 % NaCl 1 250ml.bag @ 12 UNITS/KG/HR 8.927 mls/hr IV .Q24H [facility] Rx#: [id number] Oral 360 Output: Urine 0 Stool 0 Other: Voiding Method Toilet Toilet # Voids 4 3 - Exam GENERAL EXAM: Alert, 68-year-old female, on 2 L nasal cannula, in no apparent distress. HEAD: Normocephalic. EYES: Normal reaction of pupils, equal size. NOSE: Clear with pink turbinates. THROAT: No erythema or exudates. NECK: No masses, no JVD. CHEST: No chest wall deformity. LUNGS: Equal air entry with bilateral end expiratory wheeze, diminished. CVS: S1 and S2 normal with no audible murmur, regular rhythm. ABDOMEN: No hepatosplenomegaly, normal bowel sounds, no guarding or rigidity. SPINE: No scoliosis or deformity SKIN: No rashes CENTRAL NERVOUS SYSTEM: No focal deficits, tone is normal in all 4 extremities. EXTREMITIES: There is no peripheral edema. No clubbing, no cyanosis. Peripheral pulses are intact. - Labs CBC & Chem 7: 08/07/23 08:54 08/07/23 08:54 Labs: Abnormal Lab Results - Last 24 Hours (Table) 08/06/23 08/06/23 08/07/23 Range/Units 17:34 20:09 06:10 Lymphocytes # (1.0-4.8) k/uL Potassium (3.5-5.1) mmol/L BUN (7-17) mg/dL Creatinine (0.52-1.04) mg/dL Glucose (74-99) mg/dL POC Glucose (mg/dL) 309 H 427 H 277 H (70-110) mg/dL 08/07/23 08/07/23 08/07/23 Range/Units 08:54 08:54 11:38 Lymphocytes # 0.5 L (1.0-4.8) k/uL Potassium 5.4 H (3.5-5.1) mmol/L BUN 59 H (7-17) mg/dL Creatinine 1.18 H (0.52-1.04) mg/dL Glucose 313 H (74-99) mg/dL POC Glucose (mg/dL) 298 H (70-110) mg/dL Microbiology - Last 24 Hours (Table) 08/05/23 10:15 Blood Culture - Preliminary Blood 08/05/23 10:05 Blood Culture - Preliminary Blood Assessment and Plan Assessment: Acute hypoxemic respiratory failure secondary to an acute exacerbation of COPD complicated by influenza A Acute influenza A infection Troponin leak Acute kidney injury Chronic and ongoing tobacco dependence of greater than 50 years Chronic obstructive pulmonary disease Diabetes mellitus, type II Hypertension Hyperlipidemia Plan: The patient was seen and evaluated Labs and medications reviewed Continue the current treatment plan NicoDerm patch in place Possible inpatient cardiac catheterization We will continue to follow I have personally seen and examined the patient, performed the documentation and the assessment and plan as written. Number of minutes spent on the visit: 10.
--- NOTE | 2023-08-07 14:56 | P.PN ---
Subjective Progress Note Date: 08/07/23 HISTORY OF PRESENTING ILLNESS Patient is a 68-year-old male with past medical history of type 2 diabetes, hypertension dyslipidemia, COPD, chronic and ongoing tobacco use for 50 years. She presented to the hospital because of increased breathing difficulty and shortness of breath that has progressively got worse in the last 2 weeks. She also reports poor appetite, chills. On admission she was tested positive for influenza A. Her chest x-ray showed chronic COPD changes with mild pulmonary congestion. Hemoglobin 13.2, platelets 211, INR 0.9, BUN 35, creatinine 1, glucose 249, lactate 2.3, repeat 1.4. Her troponin was elevated at 0.7, 0.9. BNP was elevated at 5000. Her ECG shows sinus rhythm, left axis deviation with poor R wave progression. No significant ST-T wave changes diagnostic for ischemia 08/05 Patient remains on heparin drip. She states she is feeling better today she is still feeling congested is little bit of cough and a little wheeze. Blood pressure 156/73, heart rate 90, pulse ox 94% on 3 L nasal cannula. CBC is unremarkable. Electrolytes normal, BUN 47 creatinine 1.1. Hemoglobin A1c is 7.4. Echocardiogram performed 08/05/2023 reveals EF of 45 to 50%, poorly visualized intracardiac valves. No pericardial effusion. 08/06 Patient complains of cough, no wheezing. Blood pressure readings are still elevated and we will decrease hydrochlorothiazide due to worsening renal function. Blood pressure 174/60, heart rate is in the 70s, pulse ox 91 to 94% on 2 L nasal cannula. Repeat blood work reveals CBC unremarkable. BUN 59 creatinine 1.18, potassium 5.4. PHYSICAL EXAMINATION Vital signs reviewed. Head: Normocephalic. Eyes: Sclerae nonicteric. Neck: Brisk carotid upstroke, no jugular venous distention. Lungs: Clear to auscultation. Heart: Regular rate and rhythm, S1-S2, no S3, no murmur or rub. Abdomen: Soft nontender, positive bowel sounds. Extremities: No edema, intact distal pulses. Neuro: Alert, oritented, no focal deficits. Detailed neuro exam was not performed. ASSESSMENT Acute hypoxic respiratory failure Influenza A infection COPD exacerbation NSTEMI, likely type II High pretest probability for CAD Hypertension Type II diabetes Chronic smoker, 50-kelx-velo smoking history Breast cancer with partial breast resection. Currently on anastrozole no reported radiation or chemotherapy received in the past. PLAN Continue aspirin 81 mg. Lipitor 40 40 mg daily Continue metoprolol 50 mg twice daily and losartan 50 mg daily Decrease hydrochlorothiazide to 25 mg daily Start patient on amlodipine 5 mg daily No plan for heart catheterization during this hospitalization Cardiology will sign off this case and follow on an as-needed basis. Please reconsult for any new concerns. Patient may follow-up in the office with Dr. Nguyen in one to 2 weeks. Nurse practitioner note has been reviewed, I agree with documented findings and plan of care. Patient was seen and examined. Objective - Vital Signs Vital signs: Vital Signs Temp 98.1 F 08/07/23 08:00 Pulse 77 08/07/23 13:31 Resp 18 08/07/23 13:31 BP 146/64 08/07/23 12:00 Pulse Ox 90 L 08/07/23 12:00 FiO2 Intake & Output 08/06/23 08/07/23 08/07/23 18:59 06:59 18:59 Intake Total 166.489 360 Output Total 0 Balance 166.489 0 360 Intake: Intake, IV Titration 166.489 Amount Heparin Sod,Pork in 0.45% 166.489 NaCl 25,000 unit In 0.45 % NaCl 1 250ml.bag @ 12 UNITS/KG/HR 8.927 mls/hr IV .Q24H [facility] Rx#: [id number] Oral 360 Output: Urine 0 Stool 0 Other: Voiding Method Toilet Toilet # Voids 4 3 - Labs CBC & Chem 7: 08/07/23 08:54 08/07/23 08:54 Labs: Abnormal Lab Results - Last 24 Hours (Table) 08/06/23 08/06/23 08/07/23 Range/Units 17:34 20:09 06:10 Lymphocytes # (1.0-4.8) k/uL Potassium (3.5-5.1) mmol/L BUN (7-17) mg/dL Creatinine (0.52-1.04) mg/dL Glucose (74-99) mg/dL POC Glucose (mg/dL) 309 H 427 H 277 H (70-110) mg/dL 08/07/23 08/07/23 08/07/23 Range/Units 08:54 08:54 11:38 Lymphocytes # 0.5 L (1.0-4.8) k/uL Potassium 5.4 H (3.5-5.1) mmol/L BUN 59 H (7-17) mg/dL Creatinine 1.18 H (0.52-1.04) mg/dL Glucose 313 H (74-99) mg/dL POC Glucose (mg/dL) 298 H (70-110) mg/dL Microbiology - Last 24 Hours (Table) 08/05/23 10:15 Blood Culture - Preliminary Blood 08/05/23 10:05 Blood Culture - Preliminary Blood
[2023-08-07 16:46] LABS: Glucose,Whole Blood 421 mg/dL (70-110)
[2023-08-07 20:30] LABS: Glucose,Whole Blood 374 mg/dL (70-110)
[2023-08-08 06:17] LABS: Glucose,Whole Blood 314 mg/dL (70-110)
[2023-08-08] MEDS: hydroCHLOROthiazide 25 MG TAB PO SCH (08:57)
[2023-08-08 10:15] LABS: ALT 21 U/L (4-34); AST 28 U/L (14-36); African American GFR (CKD) 48 (>60 ml/min/1.73 sqM); Alkaline Phosphatase 86 U/L (38-126); Anion Gap 12 mmol/L; Blood Urea Nitrogen 65 mg/dL (7-17); Carbon Dioxide 26 mmol/L (22-30); Chloride 96 mmol/L (98-107); Glucose 458 mg/dL (74-99); Non-African American GFR(CKD) 41 (>60 ml/min/1.73 sqM); Potassium 5.1 mmol/L (3.5-5.1); Sodium 134 mmol/L (137-145); Total Bilirubin 0.5 mg/dL (0.2-1.3); Total Protein 6.9 g/dL (6.3-8.2)
[2023-08-08 10:41] LABS: Basophils # (A) 0.1 k/uL (0-0.2); Basophils % (A) 1 %; Eosinophils % (A) 0 %; HCT 41.1 % (34.0-46.0); Lymphocytes # (A) 0.5 k/uL (1.0-4.8); Lymphocytes % (A) 6 %; MCH 28.5 pg (25.0-35.0); MCHC 31.7 g/dL (31.0-37.0); MCV 89.9 fL (80.0-100.0); Mean Platelet Volume 9.6; Monocytes # (A) 0.3 k/uL (0-1.0); Monocytes % (A) 4 %; Neutrophils # (A) 6.8 k/uL (1.3-7.7); Neutrophils % (A) 85 %; Platelet Count 306 k/uL (150-450); RBC 4.57 m/uL (3.80-5.40); RDW 14.4 % (11.5-15.5)
[2023-08-08 11:16] LABS: Glucose,Whole Blood >600 mg/dL (70-110)
--- NOTE | 2023-08-08 11:31 | P.PN ---
Subjective Progress Note Date: 08/08/23 This is a 68-year-old female patient with a history of diabetes mellitus, hypertension, hyperlipidemia, chronic obstructive pulmonary disease, chronic and ongoing tobacco dependence of greater than 50 years. She presented here to the emergency room this morning with a 1 week history of shortness of breath, cough, chills, headache, poor appetite worsening over the past several days. She also had some left-sided chest discomfort. Chest x-ray shows evidence of COPD with moderate emphysema. Some similar bilateral hilar enlargement noted on previous exam as far back as February 2021. Granulomatous disease versus sarcoidosis and connective tissue disorders within the differential. Otherwise, no acute pulmonary process. White count 6.5. Hemoglobin 13.2. Platelets 211. INR 0.9. Sodium 137. Potassium 5.2. Bicarb 24. BUN 35. Creatinine 1.00. Glucose 249. Initial lactic 2.3, currently 1.4. Troponin 0.786, 0.926. proBNP 5060. Viral screen positive for influenza A. She is seen today in consultation on the selective care unit. She is currently up ambulating in her room. Awake and a lert in no acute distress. She denies any worsening shortness of breath, cough or congestion. No chest pain currently. She has been initiated on a heparin drip. Continued O2 saturations in the 90s on 3 L/min per nasal cannula. Afebrile. Hemodynamically stable. The patient is seen today August 06, 2023 in follow-up on the regular medical floor. She is currently sitting up in bed. Awake and alert in no acute distress. She is maintaining O2 saturations in the 90s on 3 L/min per nasal cannula. She is afebrile. Hemodynamically stable. White count 4.7. Hemoglobin 12.1. Platelets 207. Sodium 139. Potassium 5.1. Bicarb 29. BUN 47. Creatinine 1.10. Glucose 240. She remains on a heparin drip. Echocardiogram revealed mildly impaired left ventricular systolic function with an ejection fraction 45 to 50%. She remains on DuoNeb ventilations, Symbicort, Solu-Medrol. NicoDerm patch in place. Continued on Tamiflu. Procalcitonin 0.41. Continued on azithromycin. The patient is seen today August 07, 2023 in follow-up on the regular medical floor. She is currently sitting up at the bedside. Awake and alert in no acute distress. She is maintaining O2 saturations in the 90s on 2 L/min per nasal cannula. Blood cultures revealed no growth. White count 7.0. Hemoglobin 12.8. Platelets 241. Sodium 138. Potassium 5.4. Bicarb 29. BUN 59. Creatinine 1.18. Glucose 313. She is continued on DuoNeb ventilations, Symbicort, Solu- Medrol. NicoDerm patch in place. Remains on Tamiflu. The patient is seen today August 08, 2023 in follow-up on the regular medical floor. She is awake and alert in no acute distress. Sitting up in bed. Denies any worsening shortness of breath, cough or congestion. Denies any chest pain or palpitations. Maintaining O2 saturations in the 90s on 1 L/min per nasal cannula. She is afebrile. Hemodynamically stable. She remains on DuoNeb inhalations, Symbicort, Solu-Medrol. Continued on Tamiflu. NicoDerm patch in place. White count 8.0. Hemoglobin 13.0. Platelets 306. Sodium 134. Potassium 5.1. Bicarb 26. BUN 65. Creatinine 1.31. Glucose 458. Objective - Vital Signs Vital signs: Vital Signs Temp 98.0 F 08/08/23 08:00 Pulse 80 08/08/23 11:20 Resp 18 08/08/23 08:00 BP 166/66 08/08/23 08:00 Pulse Ox 92 L 08/08/23 08:10 FiO2 Intake & Output 08/07/23 08/08/23 08/08/23 18:59 06:59 18:59 Intake Total 1140 200 110 Output Total 0 Balance 1140 200 110 Intake: Oral 1140 200 110 Output: Stool 0 Other: Voiding Method Toilet # Voids 2 2 - Exam GENERAL EXAM: Alert, pleasant 68-year-old female, on 1 L nasal cannula, in no apparent distress. HEAD: Normocephalic. EYES: Normal reaction of pupils, equal size. NOSE: Clear with pink turbinates. THROAT: No erythema or exudates. NECK: No masses, no JVD. CHEST: No chest wall deformity. LUNGS: Equal air entry with bilateral end expiratory wheeze, diminished. CVS: S1 and S2 normal with no audible murmur, regular rhythm. ABDOMEN: No hepatosplenomegaly, normal bowel sounds, no guarding or rigidity. SPINE: No scoliosis or deformity SKIN: No rashes CENTRAL NERVOUS SYSTEM: No focal deficits, tone is normal in all 4 extremities. EXTREMITIES: There is no peripheral edema. No clubbing, no cyanosis. Peripheral pulses are intact. - Labs CBC & Chem 7: 08/08/23 08:09 08/08/23 08:09 Labs: Abnormal Lab Results - Last 24 Hours (Table) 08/07/23 08/07/23 08/07/23 Range/Units 11:38 16:44 20:28 Lymphocytes # (1.0-4.8) k/uL Sodium (137-145) mmol/L Chloride (98-107) mmol/L BUN (7-17) mg/dL Creatinine (0.52-1.04) mg/dL Glucose (74-99) mg/dL POC Glucose (mg/dL) 298 H 421 H 374 H (70-110) mg/dL 08/08/23 08/08/23 08/08/23 Range/Units 06:15 08:09 08:09 Lymphocytes # 0.5 L (1.0-4.8) k/uL Sodium 134 L (137-145) mmol/L Chloride 96 L (98-107) mmol/L BUN 65 H (7-17) mg/dL Creatinine 1.31 H (0.52-1.04) mg/dL Glucose 458 H (74-99) mg/dL POC Glucose (mg/dL) 314 H (70-110) mg/dL 08/08/23 Range/Units 11:14 Lymphocytes # (1.0-4.8) k/uL Sodium (137-145) mmol/L Chloride (98-107) mmol/L BUN (7-17) mg/dL Creatinine (0.52-1.04) mg/dL Glucose (74-99) mg/dL POC Glucose (mg/dL) >600 H (70-110) mg/dL Microbiology - Last 24 Hours (Table) 08/05/23 10:15 Blood Culture - Preliminary Blood 08/05/23 10:05 Blood Culture - Preliminary Blood Assessment and Plan Assessment: Acute hypoxemic respiratory failure secondary to an acute exacerbation of COPD complicated by influenza A Acute influenza A infection Troponin leak Acute kidney injury Chronic and ongoing tobacco dependence of greater than 50 years Chronic obstructive pulmonary disease Diabetes mellitus, type II with steroid-induced hyperglycemia Hypertension Hyperlipidemia Plan: The patient was seen and evaluated Labs and medications reviewed Discontinue Solu-Medrol Add prednisone taper starting at 30 mg daily for 3 days Continue Symbicort, albuterol HFA Educated again regarding smoking cessation NicoDerm patch in place Cleared for discharge from the pulmonary standpoint Follow-up in our office in 1 week I have personally seen and examined the patient, performed the documentation and the assessment and plan as written. Number of minutes spent on the visit: 10.
[2023-08-08 11:32] LABS: Glucose,Whole Blood 590 mg/dL (70-110)
--- NOTE | 2023-08-08 12:22 | P.PN ---
Subjective Progress Note Date: 08/08/23 This is a 68-year-old female patient who presented to the ER with complaints of increased shortness of breath and cough for the past few days along with left- sided lateral chest pain. Patient has a history of COPD and nicotine dependence. Additional medical history includes asthma, diabetes mellitus, hyperlipidemia, hypertension, osteoporosis, chronic back pain, left breast cancer. Chest x-ray completed showing COPD with moderate emphysema. Small bilateral hilar enlargement we no prominent lymph nodes on the patient's 02/29/[address] follow-up granulomatous disease such as separate doses and connective tissue disorders or some differential considerations. Lab work revealing influenza A positive. Troponin 0.786, lactic acid 2.3. At this time patient will be admitted. Heparin drip ordered per emergency department due to elevated troponin. Patient started on IV Solu- Medrol and azithromycin. Tamiflu also started. Pulmonary and cardiology services consulted repeat labs ordered. Current vital signs temp 98.9, heart rate 93, respiratory rate 22, blood pressure 122/76 with pulse ox 98% on 3 L On 08/06/2023 patient was seen and examined on the medical floor she is alert and oriented 3 in no apparent distress she is still complaining of cough shortness of breath and wheezing otherwise she denies any complaints there is no fever or chills no headache or dizziness no chest pain no palpitation no nausea or vomiting no abdominal pain no diarrhea and no urinary symptoms On 08/07/2023 for patients alert and oriented 3. Patient reports improvement with cough and congestion. Per cardiology possible plans for inpatient cardiac catheterization. Current vital signs temp 98.3, heart rate 66, respiratory rate 18, blood pressure 1 4462 with pulse ox 97% on 2 L cardiology and pulmonary services are following. Patient denies chest pain. Patient denies nausea vomiting or diarrhea. Patient denies any urinary burning or frequency On 08/08/2023 for patients alert and oriented 3 per cardiology plans for cardiac catheterization will follow up outpatient. Pulmonary also cleared patient for patient had blood sugar greater than 600 will stop IV steroids and start patient on insulin drip. Patient denies chest pain. Patient denies nausea vomiting or diarrhea. Patient denies any urinary burning or frequency Objective - Vital Signs Vital signs: Vital Signs Temp 98.0 F 08/08/23 08:00 Pulse 84 08/08/23 11:31 Resp 18 08/08/23 08:00 BP 166/66 08/08/23 08:00 Pulse Ox 92 L 08/08/23 08:10 FiO2 Intake & Output 08/07/23 08/08/23 08/08/23 18:59 06:59 18:59 Intake Total 1140 200 110 Output Total 0 Balance 1140 200 110 Intake: Oral 1140 200 110 Output: Stool 0 Other: Voiding Method Toilet # Voids 2 2 - Exam In general patient is alert and oriented 3 in no apparent distress Head normocephalic and atraumatic Neck supple no JVD no goiter Lungs diminished sounds bilaterally Heart regular rate and rhythm S1-S2, no rub or gallop Abdomen is soft nontender nondistended positive bowel sounds no hepatosplenomegaly Extremities no edema Neuro no gross focal deficit - Labs CBC & Chem 7: 08/08/23 08:09 08/08/23 08:09 Labs: Abnormal Lab Results - Last 24 Hours (Table) 08/07/23 08/07/23 08/08/23 Range/Units 16:44 20:28 06:15 Lymphocytes # (1.0-4.8) k/uL Sodium (137-145) mmol/L Chloride (98-107) mmol/L BUN (7-17) mg/dL Creatinine (0.52-1.04) mg/dL Glucose (74-99) mg/dL POC Glucose (mg/dL) 421 H 374 H 314 H (70-110) mg/dL 08/08/23 08/08/23 08/08/23 Range/Units 08:09 08:09 11:14 Lymphocytes # 0.5 L (1.0-4.8) k/uL Sodium 134 L (137-145) mmol/L Chloride 96 L (98-107) mmol/L BUN 65 H (7-17) mg/dL Creatinine 1.31 H (0.52-1.04) mg/dL Glucose 458 H (74-99) mg/dL POC Glucose (mg/dL) >600 H (70-110) mg/dL 08/08/23 Range/Units 11:31 Lymphocytes # (1.0-4.8) k/uL Sodium (137-145) mmol/L Chloride (98-107) mmol/L BUN (7-17) mg/dL Creatinine (0.52-1.04) mg/dL Glucose (74-99) mg/dL POC Glucose (mg/dL) 590 H (70-110) mg/dL Microbiology - Last 24 Hours (Table) 08/05/23 10:15 Blood Culture - Preliminary Blood 08/05/23 10:05 Blood Culture - Preliminary Blood Assessment and Plan Assessment: 1. Increased shortness breath and cough 2. Influenza A positive 3. Positive troponins 4. Acute COPD exacerbation 5. Lactic acidosis 6. Underlying history of diabetes mellitus 7. History of essential hypertension 8. Ongoing nicotine dependence 9. History of hyperlipidemia 10. History of COPD 11. Left breast cancer DVT prophylaxis heparin drip. GI prophylaxis Protonix Cardiology and pulmonary service is consulted Patient started IV steroids and antibiotic Per cardiology no plans for inpatient follow-up outpatient Patient started on Tamiflu Repeat labs ordered
[2023-08-08] MEDS ORDERED: DEXTROSE 50% SYRINGE 50 ML IVP PRN ×2 (12:23)
[2023-08-08] MEDS: INSULIN REGULAR 100 UNIT in SODIUM CHLORIDE 0.9% 100 ML IV SCH (13:19)
[2023-08-08 14:30] LABS: Glucose,Whole Blood 413 mg/dL (70-110)
[2023-08-08 15:30] LABS: Glucose,Whole Blood 309 mg/dL (70-110)
[2023-08-08 16:31] LABS: Glucose,Whole Blood 276 mg/dL (70-110)
[2023-08-08 17:30] LABS: Glucose,Whole Blood 176 mg/dL (70-110)
[2023-08-08 18:29] LABS: Glucose,Whole Blood 213 mg/dL (70-110)
[2023-08-08 19:32] LABS: Glucose,Whole Blood 219 mg/dL (70-110)
[2023-08-08 20:24] LABS: Glucose,Whole Blood 159 mg/dL (70-110)
[2023-08-08] MEDS: ACETAMINOPHEN TAB 325 MG TAB PO PRN (20:51)
[2023-08-08 21:34] LABS: Glucose,Whole Blood 119 mg/dL (70-110)
[2023-08-08 22:40] LABS: Glucose,Whole Blood 138 mg/dL (70-110)
[2023-08-08 23:30] LABS: Glucose,Whole Blood 184 mg/dL (70-110)
[2023-08-09 00:44] LABS: Glucose,Whole Blood 146 mg/dL (70-110)
[2023-08-09 01:34] LABS: Glucose,Whole Blood 100 mg/dL (70-110)
[2023-08-09 06:01] LABS: Glucose,Whole Blood 166 mg/dL (70-110)
[2023-08-09] MEDS: INSULIN ASPART (NovoLOG) 100 UNIT/ML VIAL SQ SCH (06:33)
[2023-08-09] MEDS: predniSONE 10 MG TAB PO SCH (08:45)
[2023-08-09 09:26] VITALS: BP 147/72; PULSE 96; RESP 17; TEMP 98.1
--- NOTE | 2023-08-09 11:06 | P.DS ---
Providers Date of admission: 08/05/23 11:18 Expected date of discharge: 08/09/23 Attending physician: Sumeet Adair Consults: 08/05/23 11:17 Consult Physician Urgent Consulting Provider: [facility] Consult Reason/Comments: NSTEMI Do you want consulting provider notified?: Yes 08/05/23 11:23 Consult Physician Routine Consulting Provider: Jill Velasquez Reason/Comments: COPD, FLU Do you want consulting provider notified?: Yes Primary care physician: Sumeet Mana [facility] Course: Diagnosis on discharge: 1. Increased shortness breath and cough 2. Influenza A positive 3. Positive troponins 4. Acute COPD exacerbation 5. Lactic acidosis 6. Underlying history of diabetes mellitus 7. History of essential hypertension 8. Ongoing nicotine dependence 9. History of hyperlipidemia 10. History of COPD 11. Left breast cancer Hospital course: This is a 68-year-old female patient who presented to the ER with complaints of increased shortness of breath and cough for the past few days along with left- sided lateral chest pain. Patient has a history of COPD and nicotine dependence. Additional medical history includes asthma, diabetes mellitus, hyperlipidemia, hypertension, osteoporosis, chronic back pain, left breast cancer. Chest x-ray completed showing COPD with moderate emphysema. Small bilateral hilar enlargement we no prominent lymph nodes on the patient's 02/29/[address] follow-up granulomatous disease such as separate doses and connective tissue disorders or some differential considerations. Lab work revealing influenza A positive. Troponin 0.786, lactic acid 2.3. At this time patient will be admitted. Heparin drip ordered per emergency department due to elevated troponin. Patient started on IV Solu- Medrol and azithromycin. Tamiflu also started. Pulmonary and cardiology services consulted repeat labs ordered. Current vital signs temp 98.9, heart rate 93, respiratory rate 22, blood pressure 122/76 with pulse ox 98% on 3 L On 08/06/2023 patient was seen and examined on the medical floor she is alert and oriented 3 in no apparent distress she is still complaining of cough shortness of breath and wheezing otherwise she denies any complaints there is no fever or chills no headache or dizziness no chest pain no palpitation no nausea or vomiting no abdominal pain no diarrhea and no urinary symptoms On 08/07/2023 for patients alert and oriented 3. Patient reports improvement with cough and congestion. Per cardiology possible plans for inpatient cardiac catheterization. Current vital signs temp 98.3, heart rate 66, respiratory rate 18, blood pressure 1 4462 with pulse ox 97% on 2 L cardiology and pulmonary services are following. Patient denies chest pain. Patient denies nausea vomiting or diarrhea. Patient denies any urinary burning or frequency On 08/08/2023 for patients alert and oriented 3 per cardiology plans for cardiac catheterization will follow up outpatient. Pulmonary also cleared patient for patient had blood sugar greater than 600 will stop IV steroids and start patient on insulin drip. Patient denies chest pain. Patient denies nausea vomiting or diarrhea. Patient denies any urinary burning or frequency Plan - Discharge Summary Discharge Rx Participant: No New Discharge Prescriptions: New Aspirin 81 mg PO DAILY 30 Days #30 tab predniSONE 10 mg PO DIRECTED 12 Days #30 tab Oseltamivir [Tamiflu] 30 mg PO Q12HR 5 Days #10 cap Nicotine 21Mg/24Hr Patch [Habitrol] 1 patch TRANSDERM DAILY 30 Days #30 patch amLODIPine [Norvasc] 5 mg PO DAILY 30 Days #30 tab Continue Lovastatin [Mevacor] 40 mg PO W/SUPPER metFORMIN HCL [Glucophage] 1,000 mg PO BID Metoprolol Tartrate [Lopressor] 50 mg PO BID Losartan [Cozaar] 50 mg PO DAILY Fluticasone Furoate [Arnuity Ellipta] 1 puff INHALATION RT-DAILY Anastrozole 1 mg PO DAILY Glimepiride [Amaryl] 2 mg PO DAILY Albuterol Sulfate [Albuterol Sulfate Hfa] 1 puff PO RT-Q4H hydroCHLOROthiazide [Hydrodiuril] 25 mg PO BID Fluticasone Nasal Somers [Flonase Nasal Somers] 1 spray EA NOSTRIL DAILY PRN PRN Reason: Allergy Symptoms Discharge Medication List Lovastatin [Mevacor] 40 mg PO W/SUPPER 07/26/16 [History] metFORMIN HCL [Glucophage] 1,000 mg PO BID 07/26/16 [History] Fluticasone Furoate [Arnuity Ellipta] 1 puff INHALATION RT-DAILY 02/28/21 [History] Losartan [Cozaar] 50 mg PO DAILY 02/28/21 [History] Metoprolol Tartrate [Lopressor] 50 mg PO BID 02/28/21 [History] hydroCHLOROthiazide [Hydrodiuril] 25 mg PO BID 02/28/21 [History] Anastrozole 1 mg PO DAILY 06/30/22 [History] Albuterol Sulfate [Albuterol Sulfate Hfa] 1 puff PO RT-Q4H 08/05/23 [History] Fluticasone Nasal Somers [Flonase Nasal Somers] 1 spray EA NOSTRIL DAILY PRN 08/05/23 [History] Glimepiride [Amaryl] 2 mg PO DAILY 08/05/23 [History] Aspirin 81 mg PO DAILY 30 Days #30 tab 08/08/23 [Rx] Nicotine 21Mg/24Hr Patch [Habitrol] 1 patch TRANSDERM DAILY 30 Days #30 patch 08/08/23 [Rx] Oseltamivir [Tamiflu] 30 mg PO Q12HR 5 Days #10 cap 08/08/23 [Rx] amLODIPine [Norvasc] 5 mg PO DAILY 30 Days #30 tab 08/08/23 [Rx] predniSONE 10 mg PO DIRECTED 12 Days #30 tab 08/08/23 [Rx] Follow up Appointment(s)/Referral(s): Buck Nguyen MD [Medical Doctor] - 1 Week (office will call you to schedule appt once they pulll your records.) Sumeet Adair MD [Primary Care Provider] - 1-2 days (message left with office to call you to schedule. ) Patient Instructions/Handouts: Heart Attack (DC), COPD (Chronic Obstructive Pulmonary Disease) (DC) Discharge Disposition: HOME WITH HOME HEALTH SERVICES
--- NOTE | 2023-08-09 14:07 | PN ---
PROGRESS NOTE DATE OF SERVICE: 08/09/2023 This is a Pulmonary/Critical Care Progress Note. SUBJECTIVE: This is a 68-year-old female seen in room 383. The patient is doing relatively well. The patient is currently on room air. She is not receiving any IV fluids. The patient is feeling much improved. The patient does have a history of diabetes, hypertension, hyperlipidemia, and COPD. The patient was to have a cardiac catheterization on this admission, but Cardiology decided not to do it at this time. The patient denies any chest pain or chest discomfort. She continues on Tamiflu, for her influenza infection. PHYSICAL EXAMINATION: VITAL SIGNS: Current vital signs are reviewed. Temperature is 98.1, heart rate 100, respiratory rate 17, blood pressure 147/72, mean 97, and room air saturation 94%. GENERAL: She appears in no acute distress. HEENT: Examination is grossly unremarkable. NECK: Supple, full range of motion. No adenopathy. Neck veins are flat. CARDIOVASCULAR: Examination reveals regular rhythm rate. S1, S2 normal. No S3, S4, or murmur. LUNGS: Reveal some mild expiratory rhonchi. Minimal expiratory wheezes. Breath sounds are equal but diminished. ABDOMEN: Soft. Bowel sounds are heard. EXTREMITIES: Intact. No cyanosis, clubbing, or edema. SKIN: Without rash. NEUROLOGIC: Examination is brief, but nonfocal. LABORATORY DATA: No new labs today other than a glucose of 166. ASSESSMENT: 1. Acute hypoxemic respiratory failure secondary to chronic obstructive pulmonary disease exacerbation, complicated by and triggered by influenza A. 2. Acute influenza A infection, treated with Tamiflu. 3. Troponin leak. 4. Acute kidney injury. 5. Chronic and ongoing tobacco dependence. 6. Chronic obstructive pulmonary disease. 7. Diabetes mellitus, type 2. 8. Hypertension. 9. Hyperlipidemia. PLAN: The patient has been stable from the respiratory status, for a couple days now. The patient continues with her current regimen. Additional recommendations and suggestions are forthcoming. The patient will finish out her 5 days of Tamiflu. Solu-Medrol was converted to prednisone. The patient does not need oxygen therapy on discharge. MMODL / IJN: [id number] /
== END 2023-08-09 11:03 | disposition left against medical advice (07) | DRG 193 ==
LOC: EC 09:46 → 3SCARD 11:18
PROVIDERS: ADMIT Internal Medicine; ATTEND Internal Medicine
DX: J10.1 Influenza due to other identified influenza virus with other respiratory manifestations (principal); I21.A1 Myocardial infarction type 2; J96.01 Acute respiratory failure with hypoxia; J44.1 Chronic obstructive pulmonary disease with (acute) exacerbation; N17.9 Acute kidney failure, unspecified; E87.20 Acidosis, unspecified; Z53.29 Procedure and treatment not carried out because of patient's decision for other reasons; J43.9 Emphysema, unspecified; M81.0 Age-related osteoporosis without current pathological fracture; E78.5 Hyperlipidemia, unspecified; C50.912 Malignant neoplasm of unspecified site of left female breast; T38.0X5A Adverse effect of glucocorticoids and synthetic analogues, initial encounter; X58.XXXA Exposure to other specified factors, initial encounter; F17.210 Nicotine dependence, cigarettes, uncomplicated; I10 Essential (primary) hypertension; I07.1 Rheumatic tricuspid insufficiency; I25.10 Atherosclerotic heart disease of native coronary artery without angina pectoris; Z79.811 Long term (current) use of aromatase inhibitors; Z79.84 Long term (current) use of oral hypoglycemic drugs; Z79.899 Other long term (current) drug therapy; Z85.3 Personal history of malignant neoplasm of breast; Z98.51 Tubal ligation status; Z98.42 Cataract extraction status, left eye; Z98.41 Cataract extraction status, right eye; Z87.19 Personal history of other diseases of the digestive system; Z88.6 Allergy status to analgesic agent; Z88.8 Allergy status to other drugs, medicaments and biological substances
CPT/HCPCS: 36415; 71046; 80053; 82947; 83036; 83605; 83735; 83880; 84145; 84484; 85025; 85610; 85730; 87040; 87636; 93005; 93306; 94640; 94760; 96374; 96375; 99291

== ENCOUNTER → 2023-12-03 | Outpatient (CLI) | payer MEDICARE, OTHER ==
--- NOTE | 2023-12-03 13:16 | MM ---
Reason for Exam: Hx of breast cancer, conservation therapy. Last mammogram was performed 1 year(s) and 1 month(s) ago. Patient History: Menarche at age 9. First Full-Term at age 15. Postmenopausal. Breast cancer, left, age 66. Breast cancer, left, age 66. Breast cancer, left, age 66. 01/10/2022, Lumpectomy on the Left side. 01/10/2022, Malignant US breast localization LT on the left side. 01/10/2022, US breast localization LT on the Left side. 10/13/2021, Malignant US biopsy breast VAD LT on the left side. 10/13/2021, Malignant US biopsy breast add'l VAD LT on the left side. Prior Study Comparison: 03/18/2020 Bilateral Screening Mammogram, [facility]. 04/02/2020 Right Diagnostic Mammogram, [facility]. 09/29/2021 Bilateral Screening Mammogram, [facility]. 10/06/2021 Left Diagnostic Mammogram, [facility]. 10/06/2021 Left Diagnostic Ultrasound, [facility]. 10/13/2021 Left MG diagnostic mammo LT wo CAD., [facility]. 11/04/2021 Bilateral MR breast bilat wo/w con, [facility]. 11/30/2021 Right US breast RT, [facility]. 01/10/2022 Left MG diagnostic mammo LT wo CAD., [facility]. 06/26/2022 Right MG diagnostic mammo RT w CAD, [facility]. 11/24/2022 Bilateral MG 3D diag mammo w/cad JULIA, [facility]. 05/29/2023 Left MG 3D diag mammo w/cad LT, [facility]. Tissue Density: The breasts are heterogeneously dense, which may obscure small masses. Findings: Analyzed By CAD. The pattern is stable. Multiple surgical clips from prior lumpectomy within the posterior left breast. Multiple benign-appearing calcifications are present bilaterally. No suspicious groups of microcalcifications, spiculated or lobular masses, architectural distortion or other secondary signs of malignancy are mammographically apparent. Overall Assessment: Benign, BI-RAD 2 Management: Diagnostic Mammogram of both breasts in 1 year. A negative mammogram report should not preclude additional follow up of suspicious palpable abnormalities. Patient should continue monthly self breast exam. A clinical breast exam by your physician is recommended on an annual basis and results should be correlated with mammographic findings. Note on Ambar scores and lifetime risk: 1. A Ambar score greater than 3% is considered moderate risk. If this is the case, consider specialist referral to assess eligibility for a risk reducing agent. 2. If overall lifetime risk for the development of breast cancer is 20% or higher, the patient may qualify for future screening with alternating mammogram and breast MRI. Electronically signed and approved by: Alexi Sierra D.O. Radiologis
== END | disposition home or self-care (01) ==
LOC: RADMAMWWP 12:47
PROVIDERS: ATTEND Surgery
DX: R92.333 Mammographic heterogeneous density, bilateral breasts (principal); Z85.3 Personal history of malignant neoplasm of breast; Z78.0 Asymptomatic menopausal state
CPT/HCPCS: 77066; G0279; 77062

== ENCOUNTER → 2023-12-07 | Outpatient (CLI) | payer MEDICARE, OTHER ==
[2023-12-07 12:10] VITALS: BP 177/67; PULSE 70; RESP 16; TEMP 98
--- NOTE | 2023-12-07 12:16 | P.PN ---
Subjective Progress Note Date: 12/07/23 Principal diagnosis: multifocal invasive lobular cancer left breast 202106/01/23 Principal diagnosis: left breast invasive lobular cancer stage IA 2021 left breast invasive lobular cancer stage IA 2021 Multifocal left breast invasive lobular carcinoma Nichelle is a 68-year-old white female status post bilateral mammogram performed on 5521. This subsequently led to an ultrasound of the left breast which revealed 2 lesions one at the 1 o'clock position which was 1.3 cm in size and a 0.4 cm lesion at the 2 o'clock position. Both underwent ultrasound-guided core biopsy on . Pathology of both sites revealed invasive lobular carcinoma. This was ER/AK positive HER-2/ranjeet negative and grade 1. The patient did not feel anything of concern in either breast. She did not complain of any nipple discharge or skin changes. She never had any breast biopsies or surgery on her breast in the past. She underwent an MRI on 11-04-21. Revealed a questionable lesion in the right breast for which an ultrasound was performed that did not show any specific lesion of concern. She declined further attempt at biopsy via MRI guidance at this time. She understands the tumor could be present but we'll continue with surveillance at her institution at this time. She would like to proceed with treatment of the left breast/lumpectomy despite the fact that his multifocal invasive lobular cancer. Nichelle underwent a left breast lumpectomy and SNB on 01-10-22, her node was negative but superior margin was (+). She underwent re-excision on 02-14-22 and margin was negative. The patient had a right breast mammogram on which was benign BIRADS 2 Oncotype was performed. The recurrent score was 14. She declined radiation therapy. She was started on anestrazole. She also was going to have genetic testing. Note Medical Oncology reviewed 04-26-23 continue anestrazole bilateral mammogram 12-03-23 BIRAD 2, personally reviewed At this time she is not complaining of any new lumps masses or nodules of concern in either breast. She does state that her COPD has become worse since her last visit. CAffiene: 3 cups/day nicotine: since 13 05/29 PPD chocolate: occasional hormones: none BCP: 3 years in the remote past Family History: mother: colon cancer father: Esophageal cancer sister: Brain cancer sister: lung cancer Hormonal history: Menarche:10 , breast fed: no; first born at 15 menopause: 38 BCP: 3 years hormones: none Surgical history: tubaligation left knee surgery left clavicle mass vagina 01-10-22 left breast lumpectomy and SNB Medical History: diabetes since 38 HTN high cholesterol COPD/ worse after COVID artheritis asthma caugh at this time/sinus infection Social History: nicotine: < 1/2 PPD alcohol: none drugs: none - Constitutional Constitutional: Denies chills, Denies fever - EENT Eyes: denies blurred vision, denies pain Ears: deny: decreased hearing, tinnitus Ears, nose, mouth and throat: Reports headache, Denies sore throat - Breasts Breasts: bilateral: as per HPI - Cardiovascular Cardiovascular: Reports shortness of breath, Denies chest pain - Respiratory Respiratory: Reports cough - Gastrointestinal Gastrointestinal: Denies abdominal pain, Denies diarrhea, Denies nausea, Denies vomiting - Genitourinary (Female) Comment: UTI - Menstruation Menstruation: Reports postmenopausal - Musculoskeletal Musculoskeletal: Reports as per HPI - Integumentary Integumentary: Denies pruritus, Denies rash - Neurological Neurological: Reports paresthesias, Denies numbness, Denies weakness - Psychiatric Psychiatric: Denies anxiety, Denies depression - Endocrine Comment: diabetes - Hematologic/Lymphatic Comment: bruises easy - Allergic/Immunologic Allergic/Immunologic: Reports as per HPI, Reports seasonal allergies Objective - Constitutional General appearance: Present: cooperative - EENT Eyes: Present: EOMI ENT: Present: hearing grossly normal - Neck Neck: Present: normal ROM - Respiratory Respiratory: bilateral: CTA - Cardiovascular Heart sounds: normal: S1, S2 - Integumentary Integumentary: Present: normal turgor - Musculoskeletal Musculoskeletal Comment(s): limping - Psychiatric Psychiatric: Present: A&O x's 3, appropriate affect, intact judgment & insight - Additional findings Additional findings: Breast Exam: BRA: 44B Inspection: Well-healed scar left breast from prior mastopexy incision, bilater al grade 2 ptosis Palpation: Right breast: Multi-positional exam fibrocystic changes, and increased fullness in the 11:00 region approximately 2 cm from the nipple areolar complex no definite discrete mass Right axilla: No adenopathy of concern Left breast: Multi-positional exam fibrocystic changes no dominant masses or nodules of concern, postsurgical changes no evidence of any cancer Left axilla: No adenopathy of concern Assessment and Plan Assessment: Impression: diabetes since 38 HTN high cholesterol COPD/ worse after COVID artheritis asthma Patient status post left breast lumpectomy and sentinel node biopsy no evidence of any recurrent left breast cancer bilateral mammogram 12-03-23 BIRAD 2 Patient presently on anastrozole tolerating this Fullness in the 11 o'clock position right breast periareolar region Plan: Would recommend MRI of the breast at this time secondary to history of lobular invasive carcinoma and questionable MRI finding in the right breast and now questionable nodularity on physical examination Follow-up after MRI Continue anastrozole CC: DR. Adair
== END ==
LOC: WWCWWP 11:32
PROVIDERS: ATTEND Surgery
DX: C50.912 Malignant neoplasm of unspecified site of left female breast (principal); J44.89 Other specified chronic obstructive pulmonary disease; M19.90 Unspecified osteoarthritis, unspecified site; I10 Essential (primary) hypertension; E11.9 Type 2 diabetes mellitus without complications; E78.00 Pure hypercholesterolemia, unspecified; Z17.0 Estrogen receptor positive status [ER+]; Z87.891 Personal history of nicotine dependence; Z88.6 Allergy status to analgesic agent; Z91.09 Other allergy status, other than to drugs and biological substances; Z79.899 Other long term (current) drug therapy; Z79.84 Long term (current) use of oral hypoglycemic drugs; Z79.51 Long term (current) use of inhaled steroids

== ENCOUNTER → 2024-01-02 | Outpatient (CLI) | payer MEDICARE, OTHER ==
--- NOTE | 2024-01-29 16:14 | BMR ---
EXAM DATE: 01/02/2024 EXAM DESCRIPTION: MRI-Breast Bilat (W/WO Contrast) INDICATION: History of left breast cancer. Surveillance. Previous finding right breast. COMPARISON: PRIOR MRIs: 11/04/2021. Correlation to mammograms: 12/03/2023. Correlation to ultrasound: None available. CONTRAST: 6.5 cc Gadavist IV gadolinium contrast TECHNIQUE: Multiplanar multisequence MR imaging of both breasts was performed with a dedicated breast coil. Images were obtained before and after administration of IV gadolinium, using the standard breast mass protocol. Computer aided detection was utilized for interpretation. FINDINGS: LMP: Postmenopausal General breast composition: The breast is heterogeneously dense Background parenchymal enhancement: Mild RIGHT BREAST: The T2 weighted series shows no areas of abnormal signal intensity. Review of the dynamic series shows no early or abnormal enhancement. Previously visualized non mass area of enhancement at the 10 o'clock position is no longer present. LEFT BREAST: Postsurgical changes of the left breast. There is mild T2 hyperintensity and rim enhancement within the postsurgical scar in the upper outer quadrant. LYMPH NODES: There is no evidence of internal mammary or axillary adenopathy. IMPRESSION: RIGHT BREAST: No MR evidence of malignancy. LEFT BREAST: No MR evidence of malignancy. Mild rim enhancement within the postsurgical scar favors benign postsurgical enhancement/fat necrosis. OVERALL ASSESSMENT -- BI-RADS 2: Benign MTDD
== END | disposition home or self-care (01) ==
LOC: RADMRIMAIN 14:30
PROVIDERS: ATTEND Surgery
DX: R92.323 Mammographic fibroglandular density, bilateral breasts (principal); Z78.0 Asymptomatic menopausal state
CPT/HCPCS: C8908; A9585; 77049

== ENCOUNTER → 2024-01-02 | Outpatient (CLI) | payer MEDICARE, OTHER ==
--- NOTE | 2024-02-07 14:26 | CTL ---
EXAMINATION TYPE: CT Low Dose Lung DATE OF EXAM ORDERED: 01/02/2024 HISTORY: Personal history of tobacco use. Lung cancer screening CT DLP: 75.[address] CTDI: 2.30 mGy Automated exposure control for dose reduction was used. SCREENING VISIT: First screening visit COMPARISON: Chest radiograph 08/05/2023 TECHNIQUE: Low dose computed tomography scan was performed through the chest at 1 mm thick sections a nd reconstructed images in multiple planes at 1 mm and [address] DIAGNOSTIC QUALITY: Satisfactory FINDINGS: Nodules: Right mid lung 4.8 mm solid pulmonary nodule (series 6, image 27). Right lower lobe 2.9 mm solid pulmonary nodule (series 6, image 42). LUNGS: COPD: Severity: Moderate Fibrosis: Severity: None Lymph nodes: None Other findings: None RIGHT PLEURAL SPACE: Effusion: None Calcification: None Thickening: None Pneumothorax: None LEFT PLEURAL SPACE: Effusion: None Calcification: None Thickening: None Pneumothorax: None HEART: Heart Size: Normal Coronary Calcification: Moderate Pericardial Effusion: Trace OTHER FINDINGS: Upper abdomen: Left adrenal gland is 4.1 cm macroscopic fat-containing lesion. Bony thorax: No acute processes. Remote right clavicular fracture. Degenerative changes of the spine Supraclavicular region: None Other: Dystrophic calcifications within both breasts with surgical/biopsy clips in the left breast. A therosclerotic calcification of the aorta and its branches. IMPRESSION: 1. Couple of pulmonary nodules with largest measuring up to 4.8 mm. 2. Moderate COPD changes. 3. Left adrenal myolipoma. CT LUNG RAD AND CT CHEST RECOMMENDATION: Lung-Rad 2 Benign Appearance or Behavior: Continue annual sc reening with LDCT in 12 months. S Modifier (other clinically significant findings): None
== END | disposition home or self-care (01) ==
LOC: RADCTMAIN 14:21
PROVIDERS: ATTEND Internal Medicine
DX: Z12.2 Encounter for screening for malignant neoplasm of respiratory organs (principal); F17.210 Nicotine dependence, cigarettes, uncomplicated; J44.9 Chronic obstructive pulmonary disease, unspecified; D17.79 Benign lipomatous neoplasm of other sites; I70.0 Atherosclerosis of aorta
CPT/HCPCS: 71271

== ENCOUNTER → 2024-03-12 | Outpatient (CLI) | payer MEDICARE, OTHER ==
--- NOTE | 2024-03-12 22:46 | BD ---
EXAMINATION TYPE: Axial Bone Density DATE OF EXAM: 03/12/2024 CLINICAL HISTORY: 68 years old Female. ICD-10 CODE: C50.412 BREAST CANCER Height: 63 Weight: 147.2 FRAX RISK QUESTIONS: Alcohol (3 or more units per day): no Family History (Parent hip fracture): no Glucocorticoids (More than 3mos): no (Ex: prednisone, prednisolone, methylprednisolone, dexamethasone, and hydrocortisone). History of Fracture in Adulthood: no Secondary Osteoporosis: 1. Type 1 Diabetes: no 2. Hyperthyroidism: no 3. Menopause before 45: yes 4. Malnutrition: no 5. Chronic liver disease: no Rheumatoid Arthritis: no Current Tobacco Use: yes RISK FACTORS HISTORY OF: Hip Fracture (Right/Left): no Spine Fracture: no History of Wrist Fracture: no Surgery to Spine/Hip(right/left)/Wrist (right/left): no MEDICATIONS: Thyroid Medications: no Osteoporosis Medications: no Breast Ca. 2020 EXAM MEASUREMENTS: Bone mineral densitometry was performed using the Kili System. Bone mineral density as measured about the Lumbar spine is: ----- L1-L4(G/cm2): 1.418 T Score Values are as follows: ----- L1: 0.2 ----- L2: 0.8 ----- L3: 3.5 ----- L4: 3.0 ----- L1-L4: 2.0 Z Score Values are as follows: ----- L1: 1.8 ----- L2: 2.4 ----- L3: 5.1 ----- L4: 4.7 ----- L1-L4: 3.6 Bone mineral density has: increased 9.3 % since study of: 03/10/2022 Bone mineral density about the R hip (g/cm2): 1.0920 Bone mineral density about the L hip (g/cm2): 1.037 T Score values are as follows: -----R Neck: -0.1 -----L Neck: -0.4 -----R Total: 0.7 -----L Total: 0.2 Z Score values are as follows: -----R Neck: 1.6 -----L Neck: 1.3 -----R Total: 2.1 -----L Total: 1.7 Bone mineral density has: decreased -6.6 % since study of: 03/10/2022 FRAX%s: The graph provided illustrates a 7.7% chance for a major osteoporotic fx and a 1.0% chance fo r the hips probability for fx in 10 years time. IMPRESSION: Normal (Values between +1 and -1 indicate normal bone mass). Consider repeating this study in 5 year s or sooner if there is some new clinical indication. NOTE: T-SCORE=SD OF THE YOUNG ADULT MEAN. [facility], , 03/12/2024 10:43 PM
== END ==
LOC: RADBDWWP 09:47
PROVIDERS: ATTEND Internal Medicine
CPT/HCPCS: 77080

== ENCOUNTER → 2024-12-03 | Outpatient (CLI) | payer MEDICARE, OTHER ==
--- NOTE | 2024-12-03 12:50 | MM ---
Reason for Exam: Hx of breast cancer, conservation therapy. Last screening mammogram was performed 12 month(s) ago. Patient History: Menarche at age 9. First Full-Term at age 15. Postmenopausal. Breast cancer, left, age 66. Breast cancer, left, age 66. Breast cancer, left, age 66. 01/10/2022, Lumpectomy on the Left side. 01/10/2022, Malignant US breast localization LT on the left side. 01/10/2022, US breast localization LT on the Left side. 10/13/2021, Malignant US biopsy breast VAD LT on the left side. 10/13/2021, Malignant US biopsy breast add'l VAD LT on the left side. Prior Study Comparison: 03/30/2017 Bilateral Screening Mammogram, [facility]. 08/09/2018 Bilateral Screening Mammogram, [facility]. 03/18/2020 Bilateral Screening Mammogram, [facility]. 04/02/2020 Right Diagnostic Mammogram, [facility] 09/29/2021 Bilateral Screening Mammogram, [facility] 10/06/2021 Left Diagnostic Mammogram, [facility]. 10/06/2021 Left Diagnostic Ultrasound, [facility]. 10/13/2021 Left MG diagnostic mammo LT wo CAD., [facility]. 11/04/2021 Bilateral MR breast bilat wo/w con, [facility]. 11/30/2021 Right US breast RT, [facility]. 01/10/2022 Left MG diagnostic mammo LT wo CAD., [facility]. 06/26/2022 Right MG diagnostic mammo RT w CAD, [facility]. 11/24/2022 Bilateral MG 3D diag mammo w/cad JULIA, [facility]. 05/29/2023 Left MG 3D diag mammo w/cad LT, [facility]. 12/03/2023 Bilateral MG 3D diag mammo w/cad JULIA, [facility]. 01/02/2024 Bilateral MR breast bilat wo/w con, [facility]. Tissue Density: The breasts are heterogeneously dense, which may obscure small masses. Findings: Analyzed By CAD. Posttreatment changes in the left breast are redemonstrated. There are benign-appearing round calcifications bilaterally redemonstrated. Benign-appearing bilateral axillary lymph nodes again seen. No suspicious new mass or worrisome cluster of microcalcification in either breast. Overall Assessment: Benign, BI-RAD 2 Management: Screening Mammogram of both breasts in 1 year. . Results were given to the patient verbally at the time of exam. Patient should continue monthly self-breast exams. A clinical breast exam by your physician is recommended on an annual basis. This exam should not preclude additional follow-up of suspicious palpable abnormalities. Note on Ambar scores and lifetime risk: 1. A Mabar score greater than 3% is considered moderate risk. If this is the case, consider specialist referral to assess eligibility for a risk reducing agent. 2. If overall lifetime risk for the development of breast cancer is 20% or higher, the patient may qualify for future screening with alternating mammogram and breast MRI. [facility], , 12/03/2024 11:46 AM. Electronically signed and approved by: Rickey Perkins M.D.
== END | disposition home or self-care (01) ==
LOC: RADMAMWWP 11:13
PROVIDERS: ATTEND Internal Medicine
DX: R92.333 Mammographic heterogeneous density, bilateral breasts (principal); Z85.3 Personal history of malignant neoplasm of breast; Z78.0 Asymptomatic menopausal state
CPT/HCPCS: 77066; G0279; 77062